=== PATIENT | female | born 1935 | race Caucasian/White ===

== ENCOUNTER 2016-12-24 17:42 | Inpatient (IN) | payer MEDICARE, OTHER ==
[2016-12-24] MEDS ORDERED: Nitroglycerin 2% Ointment 1 INCH/1 GM Packet ONE (18:28)
[2016-12-24 18:44] LABS: ALT (SGPT) 16 U/L (8-55); AST (SGOT) 20 U/L (5-34); Alkaline Phosphatase 63 U/L (40-150); Anion Gap 13 mmol/L (10-20); BUN (Urea Nitrogen) 41 mg/dL (9.8-20.1); Bilirubin, Total 0.3 mg/dL (0.2-1.2); CK (CPK) 32 U/L (29-168); Calc. Creatinine Clearance 0 mL/min (70-130); Calcium 11.1 mg/dL (7.8-10.44); Carbon Dioxide 25 mmol/L (23-31); Chloride 107 mmol/L (98-107); Estimated GFR-MDRD 39; Globulin 3.3 g/dL (2.4-3.5); Lipase 263 U/L (8-78); Protein, Total 7.4 g/dL (6.0-8.3)
[2016-12-24 18:54] LABS: Troponin I 0.013 ng/mL (< 0.028)
[2016-12-24 19:26] LABS: #Eosinphils 0.1 thou/uL (0.0-0.7); #Lymphocytes 0.8 thou/uL (1.20-3.40); #Monocytes 2.2 thou/uL (0.11-0.59); #Neutrophils 12.2 thou/uL (1.40-6.50); %Basophils 0.2 % (0.0-1.0); %Eosinophils 0.8 % (0.0-10.0); %Lymphocytes 5.1 % (21.0-51.0); %Monocytes 14.5 % (0.0-10.0); Hematocrit 37.7 % (36.0-47.0); Mean Platelet Volume 8.9 fL (7.4-10.4); Red Blood Cell (RBC) Count 3.81 mill/uL (4.20-5.40); White Blood Cell (WBC) Count 15.4 thou/uL (4.8-10.8)
--- NOTE | 2016-12-24 19:48 | RAD ---
RADIOGRAPH CHEST 1 VIEW: 12/24/16 HISTORY: 80-year-old female with acute mid sternal chest pain and vomiting. FINDINGS: There are no air space densities, pulmonary edema, pneumothorax, or cardiomegaly. The lateral costo phrenic angles are sharp. IMPRESSION: 1. No acute cardiopulmonary findings. 2. An extremely large number of cutaneous nodules throughout the chest and bilateral arms. Some of these nodules overlie the lung car, especially on the right, and therefore, it is difficult t o evaluate for pulmonary nodules. This presumably represents neurofibromatosis type I, but correlati on with history is recommended. bren hernandez POS: REED
--- NOTE | 2016-12-24 21:32 | ULT ---
ULTRASOUND ABDOMEN LIMITED: (RIGHT UPPER QUADRANT) Date: 12/24/16 Time: 8:36 p.m. HISTORY: 80-year-old female with right upper quadrant abdominal pain. FINDINGS: Gallbladder: There is an approximately 25 x 12 x 25 mm mobile calculus at the gallbladder fundus. Ga llbladder wall thickness is 3 mm, at the upper limits of normal, similar to the 12/01/10 ultrasound. No sonographic Salmeron's sign. No pericholecystic edema. Common duct: 4 mm, normal. Liver: Normal size and echogenicity. Pancreas: Poorly visualized. Right kidney: Slightly small size. No hydronephrosis. At least two tiny cortical cysts. IMPRESSION: Positive for cholelithiasis, without strong evidence for acute cholecystitis. NATHANAEL Jalloh POS: REED
[2016-12-24] MEDS ORDERED: Ondansetron HCl/PF 4 MG/2 ML Vial ONE (21:36)
[2016-12-24] MEDS ORDERED: Morphine Sulfate 2 MG/ML SYRINGE ONE (21:36)
[2016-12-24] MEDS ORDERED: Ondansetron ODT 4 MG TAB SL PRN (22:47)
[2016-12-24] MEDS ORDERED: Ondansetron HCl/PF 4 MG/2 ML Vial IVP PRN (22:47)
[2016-12-24 22:58] VITALS: BMI 17.4
[2016-12-24] MEDS ORDERED: Dextrose 5 %-0.45 % NaCl 1,000 ML IV SCH (23:00)
[2016-12-25] MEDS ORDERED: Ondansetron HCl/PF 4 MG/2 ML Vial IVP PRN (00:06)
[2016-12-25] MEDS ORDERED: Mag-Al 1200 mg/1200 mg/30 ML UDCUP PO PRN (00:06)
[2016-12-25] MEDS ORDERED: Ondansetron ODT 4 MG TAB PO PRN (00:06)
[2016-12-25] MEDS ORDERED: Calcium Carbonate 500 MG ChewTAB PO PRN (00:06)
[2016-12-25] MEDS: Dextrose 5 %-0.45 % NaCl 1,000 ML IV SCH ×4 (00:25→23:30)
--- NOTE | 2016-12-25 01:16 | HP ---
DATE OF ADMISSION: 12/24/2016 The patient was seen and examined on 12/24/2016 PRIMARY CARE PHYSICIAN: Patient does not see any primary care physician. She follows with Cardiolo gy, Dr. Mike Zavaleta for palpitations. CHIEF COMPLAINT: Abdominal discomfort with nausea and vomiting. CODE STATUS: FULL CODE. SURROGATE DECISION MAKER: The patient makes her own decisions with the help of her family. HISTORY OF PRESENT ILLNESS: The patient is a 81-year-old female with neurofibromatosis, presented t o the emergency room with sudden onset of epigastric discomfort associated with nausea and vomiting. The pain started after lunch. It was sudden onset epigastric in location, radiating to her neck a nd left arm. She had a large vomiting after that. She denies any diarrhea or constipation. The pa in was more or less constant. No hematemesis, melena, hematochezia, heartburn or weight loss report ed. She has a history of pancreatitis in the past per family report. In the emergency room, her initial vital signs showed temperature 97.4, respirations 20, pulse of 94 with blood pressure of 109/66 with O2 saturation 99% on room air. Initial EKG showed sinus rhythm with left ventricular hypertrophy. Troponins were normal. Lipase was 263 with normal LFTs. She wa s started on IV fluids. An abdominal ultrasound was performed that showed cholelithiasis without ev idence for acute cholecystitis. Common duct was 4 mm and appeared normal. A chest x-ray was negati ve for acute cardiopulmonary findings. PAST MEDICAL HISTORY: 1. Palpitations followed by Dr. Zavaleta. 2. Osteoporosis. 3. Neurofibromatosis 4. History of pancreatitis in the past. PAST SURGICAL HISTORY: 1. Tonsillectomy. 2. Biopsy for neurofibromatosis. ALLERGIES: Patient is allergic to ERYTHROMYCIN. CURRENT HOME MEDICATIONS: Toprol-XL 25 mg daily, multivitamin daily, Tylenol as needed, folic acid daily, Zofran as needed. SOCIAL HISTORY: Patient currently lives at home by herself. Brother lives close to her who makes m ost of her health care decision. No smoking, alcohol or drug use. FAMILY HISTORY: Mother of diabetes and congestive heart failure. Father with heart disease. REVIEW OF SYSTEMS: The following complete review of systems was negative, unless otherwise mentione d in the HPI or below. Constitutional: Weight loss or gain, ability to conduct usual activities. Skin: Rash, itching. Eyes: Double vision, pain. ENT/Mouth: Nose bleeding, neck stiffness, pain, tenderness. Cardiovascular: Palpitations, dyspnea on exertion, orthopnea. Respiratory: Shortness of breath, wheezing, cough, hemoptysis, fever or night sweats. Gastrointestinal: Poor appetite, abdominal pain, heartburn, nausea, vomiting, constipation, or diar ofelia. Genitourinary: Urgency, frequency, dysuria, nocturia. Musculoskeletal: Pain, swelling. Neurologic/Psychiatric: Anxiety, depression. Allergy/Immunologic: Skin rash, bleeding tendency. PHYSICAL EXAMINATION: VITAL SIGNS: As discussed above. GENERAL: A 81-year-old female in mild distress due to abdominal discomfort. HEENT: Head atraumatic, normocephalic. Sclerae anicteric. Moist mucous membranes. No oral lesion . NECK: Supple, no JVD appreciated. No carotid bruit. LUNGS: Clear to auscultation bilaterally. HEART: S1, S2 present. Regular rate and rhythm. ABDOMEN: Soft, epigastric tenderness. No significant rebound or guarding. No costovertebral angle tenderness. Bowel sounds are present. EXTREMITIES: No edema or calf tenderness. NEUROLOGIC: Grossly nonfocal, moves all four extremities. PSYCHIATRY: Alert, awake, oriented x3. SKIN: Multiple skin nodules from neurofibromatosis noted. LYMPH NODES: No palpable lymph nodes in the neck. PERIPHERAL VASCULAR: Radial pulses palpable bilaterally. MUSCULOSKELETAL: No joint swelling or tenderness. LABORATORY DATA AND X-RAY FINDINGS: CBC showed WBC of 15.4 with hemoglobin 12.3, hematocrit 37.7, p latelet of 241. Chemistries showed sodium 140, potassium 4.5, chloride 107, bicarbonate 25, BUN 41, creatinine 1.32. Creatinine in 2011 was 0.7. We do not have any labs since then. Lipase was 263. Troponins were normal. Calcium was 11.1. Chest x-ray by my review was negative for infiltrate or edema. Questionable pulmonary nodules; however, difficult to characterize due to multiple skin nod ules. Abdominal ultrasound as discussed above. EKG by my review as discussed above. IMPRESSION AND PLAN: 1. Acute pancreatitis, suspected due to gallstones. Rule out hypertriglyceridemia. 2. Neurofibromatosis. 3. History of palpitations followed by Dr. Zavaleta. Currently, stable on Toprol. 4. Acute kidney injury/dehydration. 5. Chronic kidney disease stage 2. 6. Leukocytosis with left shift, less likely to be infectious etiology. Rule out urinary tract inf ection. 7. Plan of care was discussed with the patient. She stated understanding. 8. The patient will require at least 2-3 days for stabilization. 9. Deep venous thrombosis prophylaxis with Lovenox. 10. Gastrointestinal prophylaxis. PLAN: The patient will be monitored on the medical floor. Gastroenterology will be consulted. The patient will be kept n.p.o. except for ice chips. IV hydration. We will repeat labs in a.m. Cont inue Toprol-XL. Fasting lipid profile in a.m.
[2016-12-25 01:49] LABS: Troponin I 0.024 ng/mL (< 0.028)
[2016-12-25 05:19] LABS: #Eosinphils 0.4 thou/uL (0.0-0.7); #Lymphocytes 1.2 thou/uL (1.20-3.40); #Monocytes 0.9 thou/uL (0.11-0.59); #Neutrophils 5.6 thou/uL (1.40-6.50); %Basophils 0.3 % (0.0-1.0); %Eosinophils 4.5 % (0.0-10.0); %Lymphocytes 14.4 % (21.0-51.0); %Monocytes 11.4 % (0.0-10.0); Mean Platelet Volume 8.7 fL (7.4-10.4); Red Blood Cell (RBC) Count 3.39 mill/uL (4.20-5.40); White Blood Cell (WBC) Count 8.1 thou/uL (4.8-10.8)
[2016-12-25 05:42] LABS: ALT (SGPT) 12 U/L (8-55); AST (SGOT) 14 U/L (5-34); Alkaline Phosphatase 50 U/L (40-150); Anion Gap 10 mmol/L (10-20); BUN (Urea Nitrogen) 42 mg/dL (9.8-20.1); Bilirubin, Total 0.4 mg/dL (0.2-1.2); Calc. Creatinine Clearance 29 mL/min (70-130); Calcium 9.7 mg/dL (7.8-10.44); Carbon Dioxide 24 mmol/L (23-31); Chloride 108 mmol/L (98-107); Cholesterol 147 mg/dl (< 200 Desired); Estimated GFR-MDRD 47; Globulin 2.5 g/dL (2.4-3.5); LDL Cholesterol, Calculated 87 mg/dL; Lipase 203 U/L (8-78); Magnesium 2.3 mg/dL (1.6-2.6); Protein, Total 5.8 g/dL (6.0-8.3)
[2016-12-25] MEDS ORDERED: FLU VACC TS2017-18 (>65YR) 0.5 ML SYRINGE IM ONE (09:00)
[2016-12-25] MEDS: Famotidine/PF 20 mg/2ml Vial SLOW IVP SCH (09:12)
--- NOTE | 2016-12-25 12:10 | CT ---
CT OF THE ABDOMEN AND PELVIS WITH CONTRAST: Date: 12/25/16 COMPARISON: None. HISTORY: Acute pancreatitis. TECHNIQUE: Multiple contiguous axial images were obtained in a CT of the abdomen and pelvis with contrast. PO c ontrast was administered. Coronal reformats were performed. FINDINGS: Calcified gallstones are seen in the gallbladder. There are calcifications in the liver and spleen f rom prior granulomatous disease. There are hypodensities in the bilateral kidneys measuring up to 3. 4 cm in size which likely represent cysts. The adrenal glands and pancreas are unremarkable. No stra nding changes are seen surrounding the pancreas to suggest acute pancreatitis. No biliary dilatation is seen. There is a mass-like structure in the pelvis which may represent a uterus containing fibroids. This measures 5.2 cm in greatest dimension. The large and small bowel are unremarkable. The appendix is u nremarkable. No abdominal or pelvic lymphadenopathy are seen. Atherosclerotic calcifications are see n in the aorta. There are multiple skin lesions seen on the abdominal wall which likely represent neurofibromas. The osseous structures and visualized inferior thorax are unremarkable. IMPRESSION: 1. Cholelithiasis. 2. Left renal cysts. 3. Sequelae from prior granulomatous disease in the liver and spleen. 4. No stranding changes seen surrounding the pancreas to suggest acute pancreatitis. 5. Mass-like structure in the pelvis may represent the patient's uterus. Correlate with history of prior gynecologic surgery or not. POS: REED
--- NOTE | 2016-12-25 13:53 | PDOC.PN ---
- Subjective Encounter Start Date: 12/25/16 Encounter Start Time: 11:15 Subjective: abdominal pain is resolved now -: no nausea or vomiting - Objective Resuscitation Status: Resuscitation Status FULL:Full Resuscitation MAR Reviewed: Yes Vital Signs & Weight: Vital Signs (12 hours) Temp Pulse Resp BP Pulse Ox 12/25/16 11:38 97.2 F L 70 20 101/59 L 98 12/25/16 08:00 97.3 F L 78 20 12/25/16 07:34 97.3 F L 78 20 104/60 98 12/25/16 04:00 97.6 F 74 20 97/57 L 95 Weight Weight 98 lb 9.6 oz Result Diagrams: 12/25/16 05:00 12/25/16 05:00 Phys Exam - Physical Examination multiple neurofibromas all over her body HEENT: PERRLA, moist MMs Neck: no JVD, supple Respiratory: no wheezing, no rales Cardiovascular: RRR, no significant murmur Gastrointestinal: soft, non-tender, positive bowel sounds Musculoskeletal: no edema, pulses present Neurological: non-focal, moves all 4 limbs Psychiatric: A&O x 3 Dx/Plan (1) Acute pancreatitis Code(s): K85.90 - ACUTE PANCREATITIS WITHOUT NECROSIS OR INFECTION, UNSP Status: Acute Qualifiers: Pancreatitis type: unspecified pancreatitis type (2) Chronic anemia Code(s): D64.9 - ANEMIA, UNSPECIFIED Status: Chronic (3) GIGI (acute kidney injury) Code(s): N17.9 - ACUTE KIDNEY FAILURE, UNSPECIFIED Status: Acute (4) Cholelithiasis Code(s): K80.20 - CALCULUS OF GALLBLADDER W/O CHOLECYSTITIS W/O OBSTRUCTION Status: Chronic Qualifiers: Cholelithiasis location: gallbladder Cholecystitis presence: without cholecystitis Biliary obstruction: without biliary obstruction Qualified Code(s): K80.20 - Calculus of gallbladder without cholecystitis without obstruction (5) H/O neurofibromatosis Code(s): Q85.00 - NEUROFIBROMATOSIS, UNSPECIFIED Status: Chronic - Plan gentle iv hydration for mild gigi plus she recieved contrast for CT -: CT abd results noted, trig and lft's are normal, cbd is 4 mm on usg -: GI opinion -: d/w Dr.Ohaju lewis, reviewed her CT, no need for cholecystectomy -: lipase trending down to 203 from 263 * . Review of Systems - Medications/Allergies Allergies/Adverse Reactions: Allergies Allergy/AdvReac Type Severity Reaction Status Date / Time erythromycin base Allergy Unknown Verified 02/02/13 19:27 [Erythromycin Base] erythromycin lactobionate Allergy Unknown Verified 02/02/13 19:27 [From Erythrocin] Medications: Current Medications Acetaminophen (Tylenol) 650 mg PO Q4H PRN PRN Reason: Headache/Fever or Pain Al Hydroxide/Mg Hydroxide (Maalox) 30 ml PO Q6H PRN PRN Reason: Heartburn or Indigestion Calcium Carbonate (Tums) 1,000 mg PO Q4H PRN PRN Reason: Heartburn or Indigestion Enoxaparin Sodium (Lovenox) 30 mg SC 2100 [facility] Famotidine (Pepcid) 20 mg SLOW IVP DAILY [facility] Last Admin: 12/25/16 09:12 Dose: 20 mg Dextrose/Sodium Chloride (D5 1/2 Ns) 1,000 mls @ 125 mls/hr IV .Q8H [facility] Last Admin: 12/25/16 09:14 Dose: Not Given Metoprolol Succinate (Toprol Xl) 25 mg PO DAILY [facility] Last Admin: 12/25/16 09:12 Dose: 25 mg Ondansetron HCl (Zofran Odt) 4 mg PO Q6H PRN PRN Reason: Nausea/Vomiting Ondansetron HCl (Zofran) 4 mg IVP Q6H PRN PRN Reason: Nausea/Vomiting
[2016-12-25 14:49] LABS: Bilirubin Negative (Negative); Blood, Urine Negative (Negative); Glucose, Urine (Dipstick) Negative (Negative); Ketone, Urine Negative (Negative); Nitrite Negative (Negative); Protein, Urine (Dipstick) Negative (Neg-Trace); Urobilinogen 0.2 mg/dL (0.2-1.0)
[2016-12-25 14:51] LABS: Bacteria/HPF None Seen HPF (None Seen); Hyaline Casts/LPF 0-3 HYALINE CAST LPF (0-3 Hyaline); RBC/HPF 0-3 HPF (0-3); Squamous Epithelial None Seen HPF (0-3); WBC/HPF None Seen HPF (0-3)
[2016-12-25] MEDS ORDERED: ISOVUE-370 76%-LOCM 1 ML ONE (16:09)
[2016-12-25] MEDS: Acetaminophen 325 MG TAB PO PRN (20:35)
[2016-12-25] MEDS: Enoxaparin Sodium 30 MG/0.3 ML SYRINGE SC SCH (20:35)
--- NOTE | 2016-12-25 21:06 | CON ---
DATE OF CONSULTATION: 12/25/2016 REASON FOR CONSULTATION: \\\\"Pancreatitis.\\\\" HISTORY OF PRESENT ILLNESS: Ms. Farris is a 81-year-old female with neurofibromatosis. She presented to the emergency room last night at about 11:00 with abdominal pain and chest pain. Apparently this started around 5 o'clock. The ER note reports this started in the neck and chest and moved to the left arm. There were some nausea, vomiting, diaphoresis, and some cough. Apparently, she also had some complaints of in her back. She has stable vital signs in the emergency room. Abdomen wa s reported as nontender. She had imaging of the abdomen with ultrasound that showed gallstones, no previous abdominal imaging is available for comparison. There are no signs of acute cholecystitis. She also had labs notable for a white count of 15,000, hemoglobin of 12.3 and a platelet count of 2 41. Her BUN and creatinine were 41 and 1.32. Electrolytes were normal and her lipase was mildly el evated at 263, mostly just about 3 times and upper limits normal. LFTs are completely normal. She was admitted to the hospital with a diagnosis of pancreatitis. Right now, the patient states she sparks s no abdominal pain. She states her pain is in the mid abdomen around the umbilicus. She denies an y similar episodes in the past, but from time to time she has had stomach problems, but does not rec all the last time it ever happened. At this time, it apparently happened after eating, but she nicholas ot ascertain exactly when she ate at [employer] compared to when the pain began last night. She has not been having similar bouts with this over and over the past several weeks or months. PAST MEDICAL HISTORY: Notable for neurofibromatosis and hypertension. Medical history is notable f rom the patient's family as per the HPI, the patient has had pancreatitis in the past but there are no records of that here. There was one elevated lipase of 713 from 11/2010, however, reviewing the records from that admission, it was felt that more likely had gastroenteritis at [facility]. PAST SURGICAL HISTORY: Notable for tonsillectomy. MEDICATIONS AT HOME: Vitamin D, Zofran p.r.n., multivitamin, thiamine, folate, metoprolol p.r.n. MEDICATIONS HERE: Tylenol, Maalox, Tums, normal saline at 125 an hour, Lovenox, Pepcid, Toprol p.r. n., and Zofran, p.r.n. PHYSICAL EXAMINATION: GENERAL: The patient is resting comfortably in bed. She has diffuse neurofibromas all over the ski n. She is in no distress. VITAL SIGNS: Temperature 97, pulse 70, blood pressure 100/59 . LUNGS: Clear. HEART: Regular without clicks or murmurs. ABDOMEN: Soft, nontender, without any palpable hepatosplenomegaly. Abdomen is without bruises. EXTREMITIES: No clubbing, cyanosis or edema. LABORATORY AND X-RAY FINDINGS: Labs today, white count is 8.1, hemoglobin 10.8 after hydration, hem oglobin . Chemistry profile is normal. Lipase is 203. Liver function tests normal. Lipids normal. CT scan of abdomen and pelvis was performed today and shows no signs of acute pancreatitis or active inflammation from the pancreas. There are calcified stones in the gallbladder. ASSESSMENT: 1. Cholelithiasis. I cannot elicit any history to suggest biliary colic in the past, but looking a t her home medicines and she does have chronic Zofran. 2. Mildly elevated lipase. There are no signs of pancreatitis on her CAT scan. She was here in 31 01 once with elevated lipase that was attributed to nonspecific mild elevation and attributed to an episode of gastroenteritis. There was no evidence of elevated liver enzymes at that time. 3. Abdominal pain. I think this is probably related to acute gastroenteritis, biliary colic is a p ossibility. In terms of pancreatitis, people with sometimes can get pancreatitis in the pancreas or obstructing duct, although there are no signs of dilated duct on her CAT scan. RECOMMENDATIONS: We will put her on full liquids and she how she does. We will monitor labs. If s he gets recurrent bouts of pain, I think she will be warrented for cholecystectomy. If she improves rapidly, she can probably go home in the next 24-48 hours.
[2016-12-26] MEDS: Dextrose 5 %-0.45 % NaCl 1,000 ML IV SCH ×2 (05:18→07:38)
[2016-12-26] MEDS: Acetaminophen 325 MG TAB PO PRN ×2 (05:21→13:42)
[2016-12-26 06:03] LABS: #Eosinphils 0.1 thou/uL (0.0-0.7); #Lymphocytes 0.6 thou/uL (1.20-3.40); #Neutrophils 9.1 thou/uL (1.40-6.50); %Basophils 0.2 % (0.0-1.0); %Eosinophils 1.4 % (0.0-10.0); %Lymphocytes 5.4 % (21.0-51.0); Hematocrit 36.5 % (36.0-47.0); Mean Platelet Volume 8.7 fL (7.4-10.4); Red Blood Cell (RBC) Count 3.74 mill/uL (4.20-5.40); White Blood Cell (WBC) Count 10.8 thou/uL (4.8-10.8)
[2016-12-26 06:26] LABS: ALT (SGPT) 14 U/L (8-55); AST (SGOT) 17 U/L (5-34); Alkaline Phosphatase 55 U/L (40-150); Anion Gap 10 mmol/L (10-20); BUN (Urea Nitrogen) 26 mg/dL (9.8-20.1); Bilirubin, Total 0.5 mg/dL (0.2-1.2); Calc. Creatinine Clearance 32 mL/min (70-130); Calcium 9.9 mg/dL (7.8-10.44); Carbon Dioxide 21 mmol/L (23-31); Chloride 108 mmol/L (98-107); Estimated GFR-MDRD 53; Globulin 2.8 g/dL (2.4-3.5); Lipase 14 U/L (8-78); Phosphorus 2.4 mg/dL (2.3-4.7); Protein, Total 6.2 g/dL (6.0-8.3)
[2016-12-26] MEDS: Famotidine/PF 20 mg/2ml Vial SLOW IVP SCH (07:38)
--- NOTE | 2016-12-26 11:53 | PDOC.PN ---
- Subjective Encounter Start Date: 12/26/16 Encounter Start Time: 07:40 Subjective: no abd pain, is tolerating liq diet -: no nausea - Objective Resuscitation Status: Resuscitation Status FULL:Full Resuscitation MAR Reviewed: Yes Vital Signs & Weight: Vital Signs (12 hours) Temp Pulse Resp BP Pulse Ox 12/26/16 08:00 97.7 F 83 16 12/26/16 07:55 97.7 F 83 16 103/56 L 95 12/26/16 04:00 99.2 F 94 20 127/74 99 12/26/16 00:30 97.7 F 71 20 96/58 L 97 Weight Admit Weight 98 lb 9.6 oz Weight 98 lb 9.6 oz I&O: 12/25/16 12/26/16 12/27/16 06:59 06:59 06:59 Intake Total 1775 Balance 1775 Result Diagrams: 12/26/16 05:29 12/26/16 05:29 Phys Exam - Physical Examination numerous neurofibromas all over HEENT: PERRLA, moist MMs Neck: no JVD, supple Respiratory: no wheezing, no rales Cardiovascular: RRR, no significant murmur Gastrointestinal: soft, non-tender, no distention, positive bowel sounds Musculoskeletal: no edema, pulses present Neurological: non-focal, moves all 4 limbs Psychiatric: A&O x 3 Dx/Plan (1) Acute pancreatitis Code(s): K85.90 - ACUTE PANCREATITIS WITHOUT NECROSIS OR INFECTION, UNSP Status: Ruled-out Qualifiers: Pancreatitis type: unspecified pancreatitis type (2) Chronic anemia Code(s): D64.9 - ANEMIA, UNSPECIFIED Status: Chronic (3) GIGI (acute kidney injury) Code(s): N17.9 - ACUTE KIDNEY FAILURE, UNSPECIFIED Status: Resolved (4) Cholelithiasis Code(s): K80.20 - CALCULUS OF GALLBLADDER W/O CHOLECYSTITIS W/O OBSTRUCTION Status: Chronic Qualifiers: Cholelithiasis location: gallbladder Cholecystitis presence: without cholecystitis Biliary obstruction: without biliary obstruction Qualified Code(s): K80.20 - Calculus of gallbladder without cholecystitis without obstruction (5) H/O neurofibromatosis Code(s): Q85.00 - NEUROFIBROMATOSIS, UNSPECIFIED Status: Chronic - Plan d/w , may dc home if she tolerates solid diet for lunch -: will need outpt lap Dr.Derbes demar office will set this up -: hemostable * .
[2016-12-26] MEDS ORDERED: Meperidine HCl/PF 25 MG/ML VIAL SLOW IVP PRN (16:26)
--- NOTE | 2016-12-26 16:50 | PRG ---
DATE OF SERVICE: 12/26/2016 SUBJECTIVE: Ms. Farris tolerated liquid diet this morning and some cereal. She wants to go home. She did have a little bit of epigastric pain. Hospitalist plans on giving her regular lunch and see ho w she does with that, and if she does not have pain, letting her go home. PHYSICAL EXAMINATION: VITAL SIGNS: Temperature is 97, pulse 77, blood pressure 104/60. LUNGS: Clear. HEART: Regular rate and rhythm without clicks or murmurs. ABDOMEN: Nontender. LABORATORY DATA: White count 10.8, hemoglobin 11.6, platelet count 200. Chemistry: Sodium 135, po tassium 4.2, BUN and creatinine are 26 and 1.0. Liver function test is normal, lipase normal. ASSESSMENT: 1. Severe nausea, vomiting, admitted with dehydration, mild lipase. CAT scan showed no overt evide nce of pancreatitis. She did have large gallstones in the gallbladder. She is very hard of hearing and is difficult getting a good history from her, but it seems that she has had some intermittent a bdominal pains in the past, but nothing recently. General Surgery saw the patient and deferred on c holecystectomy at this time. 2. Neurofibromatosis. RECOMMENDATIONS: 1. If patient tolerates diet, I agree she can go home with PPI and we concede her as having had a g astroenteritis. If her symptoms worsen, she can have an outpatient cholecystectomy for symptomatic cholelithiasis. If she has worsening pain with eating regular food here, she probably should stay a nd be reevaluated by General Surgery for cholecystectomy for biliary colic. 2. Again, there are no overt signs of pancreatitis on CAT scan with mildly elevated lipase related to her excessive vomiting and possibly gastroenteritis.
[2016-12-26] MEDS ORDERED: Acetaminophen 500 MG TAB PO PRN (17:33)
[2016-12-26] MEDS: Enoxaparin Sodium 30 MG/0.3 ML SYRINGE SC SCH (20:48)
--- NOTE | 2016-12-26 20:53 | DIS ---
DATE OF ADMISSION: 12/24/2016 DATE OF DISCHARGE: 12/26/2016 DISCHARGE DISPOSITION: To home. PRIMARY DISCHARGE DIAGNOSIS: Initial suspected acute pancreatitis, resolved. SECONDARY DISCHARGE DIAGNOSES: Chronic anemia; acute kidney injury due to dehydration, resolved; ch olelithiasis; extensive neurofibromatosis, which is chronic. PROCEDURES DONE DURING HOSPITALIZATION: Ultrasound of right upper quadrant done showed cholelithias is without signs of acute cholecystitis. CBD was 4 mm. Had a 25 x 12 x 25 mm mobile calculus in th e gallbladder fundus. CT of the abdomen and pelvis done showed cholelithiasis no stranding changes seen surrounding pancreas to suggest acute pancreatitis. Had a white count of 15 with discharge num bers of 10. Initial BUN and creatinine were 41 and 1.3, discharge numbers of 26 and 1.0. Initial l ipase 263 with discharge numbers of 14. Liver function tests were within normal limits. Triglyceri marisela was 101, LDL of 87. DISCHARGE MEDICATIONS: Patient to continue all her home medications as before, Toprol-XL 25 mg p.o. daily and multivitamin 1 tab once daily. ALLERGIES: ERYTHROMYCIN. INPATIENT CONSULTS: Dr. Vizcaino for Gastroenterology. BRIEF COURSE DURING HOSPITALIZATION: The patient initially got admitted on the with complaints of nausea, vomiting, and abdominal pain. The abdominal pain was in the epigastric area. On arriva l, the patient had elevated lipase. Her right upper quadrant ultrasound showed a large calculus in the gallbladder with no signs of cholecystitis. Patient's liver function tests were within normal l imits. Her abdominal and pelvic CAT scan done showed no signs of acute pancreatitis. The patient w ill require outpatient laparoscopic cholecystectomy due to large stone in the gallbladder, which luis ht cause trouble in the future. She has had consultation with Dr. Vizcaino for Gastroenterology. She was gently hydrated during her stay here. Patient's abdominal pain has completely resolved from la st 24 hours and is tolerating solid food. She needs to follow up with Dr. Vizcaino in 4 weeks for pos sible outpatient referral for laparoscopic cholecystectomy. Please see a [id number] documentation on [facility] for the day of discharge.
--- NOTE | 2016-12-26 22:41 | CON ---
DATE OF CONSULTATION: 12/26/2016 REQUESTING PHYSICIAN: Teresa Lazo M.D. HISTORY OF PRESENT ILLNESS: This is a 81-year-old woman with a history of severe cutaneous neurofib romatosis. The patient reports a sudden onset postprandial epigastric abdominal pain which started 2 days ago after having lunch. She reports the pain at 5/10 in onset and associated with some nause a but no emesis. She denies any fevers or chills. The patient was evaluated upon admission. Naya p at that time included a gallbladder ultrasound which was remarkable for a 2 x 2 x 1 cm intralumina l gallstone with no gallbladder wall thickening or pericholecystic fluid. Common bile duct size was normal in diameter for the patient's age at 4 mm. The patient was managed conservatively with init ially bowel rest, followed by clear liquid diet. Abdominal pain has failed to resolve completely. CT scan of the abdomen and pelvis was obtained yesterday, which reveals intraluminal calcified galls tones. No evidence of any active inflammatory process within the abdominal or pelvic cavities. t was advanced today. The patient consumed some chicken fingers and macaroni and cheese following w hich she reported recurrent abdominal pain. She denies any nausea or vomiting. At the time of my e valuation, the pain is essentially absent; however, she had received intravenous analgesics. PAST MEDICAL HISTORY: Significant for neurofibromatosis, previous pancreatitis, and osteoporosis. PAST SURGICAL HISTORY: Pertinent for tonsillectomy and adenoidectomy. She has had biopsies of the neurofibromatosis and had some excision of some of the tumors from her feet. SOCIAL HISTORY: The patient lives independently. She denies any cigarette smoking, ethanol, or ill icit drug abuse. FAMILY HISTORY: Noncontributory for this patient's age. PREHOSPITAL MEDICATIONS: Include acetaminophen 325 mg p.o. q. 4 hours p.r.n., metoprolol 25 mg p.o. daily. She also takes multiple vitamins 1 p.o. daily. ALLERGIES: ERYTHROMYCIN. REVIEW OF SYSTEMS: A ten-point review of systems essentially unremarkable except for as stated in p ast medical history and chief complaint. PHYSICAL EXAMINATION: GENERAL: This reveals a 81-year-old thin-appearing woman who is coherent and interactive. She is h maría of hearing but appears to be in no acute distress at the time of my evaluation. VITAL SIGNS: Include blood pressure 104/60, pulse 77, respiration 16, temperature 97.3 degrees Fahr enheit, oxygen saturation 98% on room air. HEENT: Examination reveals normocephalic and atraumatic. Pupils are equally round and reactive to light and accommodation. HEART: Reveals regular rate and rhythm, no murmurs or gallops auscultated. LUNGS: Clear to auscultation bilaterally. Breathing is regular and unlabored. ABDOMEN: Soft and nondistended. She has epigastric tenderness to palpation. Liver and spleen are nonpalpable below costal margins. NEUROLOGIC: Examination reveals no focal deficits present. MUSCULOSKELETAL: Examination which reveals diffuse nodular lesions which span the entire skin from head to toe including the torso circumferentially consistent with severe cutaneous neurofibromatosis . PERTINENT LABORATORY FINDINGS: Today includes a CBC with 10,800 white blood cells, hemoglobin 11.7, hematocrit is 36.5, platelet count 200,000. Metabolic profile: Sodium 135, potassium is 4.2, chlo ride is 108, bicarbonate 21, BUN 26, creatinine is 1.0; this is improved over admission with a BUN a nd creatinine of 41 and 1.32, respectively. LFTs today include an unremarkable and stable AST, ALT, and alkaline phosphatase at 17, 14, and 55, respectively. Serum lipase which was elevated on admis jc at 263, is now normal at 14. I have reviewed the abdominal ultrasound which reveals 2 x 2 x 1 cm intraluminal gallstones with a c ommon bile duct which is normal in diameter at 4 mm for this patient's age. There is no pericholecy stic fluid or gallbladder wall thickening present. I have also reviewed the CT scan of the abdomen and pelvis again, which shows intraluminal calcified gallstones. No pneumoperitoneum or free fluid is noted. IMPRESSIONS: 1. Abdominal pain of undetermined etiology. 2. Cholelithiasis, no radiographic evidence of acute cholecystitis. 3. Neurofibromatosis. RECOMMENDATIONS: We will obtain HIDA scan to rule out cystic or common bile ductal obstruction whic h may make surgical intervention necessary. Should the HIDA scan suggests surgery, we will arrange for a family conference to discuss the potential risks and benefits of the planned surgery given thi s patient's significant comorbidities specifically the neurofibromatosis. Should surgery be contemp lated, I will request further preoperative evaluation to include cardiac evaluation and risk stratif ication. The above findings and recommendations have been discussed with the patient who indicates understanding of information given. I have answered her questions. Thank you again, Dr. Lazo for allowing me the opportunity to participate in the care of this patient.
[2016-12-27] MEDS: Dextrose 5 %-0.45 % NaCl 1,000 ML IV SCH ×2 (04:25→04:27)
[2016-12-27 07:49] VITALS: BP 121/63; TEMP 98.8
--- NOTE | 2016-12-27 12:02 | PDOC.PN ---
- Subjective Encounter Start Date: 12/27/16 Encounter Start Time: 08:40 -: old records requested/rev Patient seen and examined. No new complaints. No overnight events - Objective Resuscitation Status: Resuscitation Status FULL:Full Resuscitation MAR Reviewed: Yes Vital Signs & Weight: Vital Signs (12 hours) Temp Pulse Resp BP Pulse Ox 12/27/16 08:00 98.8 F 83 18 12/27/16 07:47 98.8 F 83 18 121/63 94 L 12/27/16 04:00 98.1 F 12/27/16 01:00 98.0 F 87 18 117/53 L 98 Weight Admit Weight 98 lb 9.6 oz Weight 98 lb 9.6 oz I&O: 12/26/16 12/27/16 12/28/16 06:59 06:59 06:59 Intake Total 1775 2520 Balance 1775 2520 Result Diagrams: 12/26/16 05:29 12/26/16 05:29 Phys Exam - Physical Examination Constitutional: NAD HEENT: PERRLA, moist MMs, sclera anicteric Neck: no JVD, supple Respiratory: no wheezing, no rales, no rhonchi Cardiovascular: RRR, no significant murmur, no rub Gastrointestinal: soft, non-tender, no distention, positive bowel sounds Musculoskeletal: no edema, pulses present Neurological: non-focal, normal sensation, moves all 4 limbs Lymphatic: no nodes Psychiatric: normal affect, A&O x 3 Skin: no rash, normal turgor Dx/Plan (1) Cholelithiasis Code(s): K80.20 - CALCULUS OF GALLBLADDER W/O CHOLECYSTITIS W/O OBSTRUCTION Status: Chronic Qualifiers: Cholelithiasis location: gallbladder Cholecystitis presence: without cholecystitis Biliary obstruction: without biliary obstruction Qualified Code(s): K80.20 - Calculus of gallbladder without cholecystitis without obstruction (2) Chronic anemia Code(s): D64.9 - ANEMIA, UNSPECIFIED Status: Chronic (3) H/O neurofibromatosis Code(s): Q85.00 - NEUROFIBROMATOSIS, UNSPECIFIED Status: Chronic (4) Protein-calorie malnutrition, moderate Code(s): E44.0 - MODERATE PROTEIN-CALORIE MALNUTRITION Status: Chronic (5) GIGI (acute kidney injury) Code(s): N17.9 - ACUTE KIDNEY FAILURE, UNSPECIFIED Status: Resolved (6) Acute pancreatitis Code(s): K85.90 - ACUTE PANCREATITIS WITHOUT NECROSIS OR INFECTION, UNSP Status: Ruled-out Qualifiers: Pancreatitis type: unspecified pancreatitis type - Plan cont current plan of care * HIDA scan is normal uptake in liver and gall bladder, no obstruction on bile duct, no cholecystitis * medication reviewed as below * symptomatic treatment. * will discharge to home today * see discharge freddy Review of Systems - Review of Systems ENT: negative: Ear Pain, Ear Discharge, Nose Pain, Nose Discharge, Nose Congestion, Mouth Pain, Mouth Swelling, Throat Pain, Throat Swelling, Other Respiratory: negative: Cough, Dry, Shortness of Breath, Hemoptysis, SOB with Excertion, Pleuritic Pain, Sputum, Wheezing Cardiovascular: negative: Chest Pain, Palpitations, Orthopnea, Paroxysmal Noc. Dyspnea, Edema, Light Headedness, Other Gastrointestinal: negative: Nausea, Vomiting, Abdominal Pain, Diarrhea, Constipation, Melena, Hematochezia, Other Genitourinary: negative: Dysuria, Frequency, Incontinence, Hematuria, Retention , Other Musculoskeletal: negative: Neck Pain, Shoulder Pain, Arm Pain, Back Pain, Hand Pain, Leg Pain, Foot Pain, Other Skin: negative: Rash, Lesions, Moiz, Bruising, Other - Medications/Allergies Allergies/Adverse Reactions: Allergies Allergy/AdvReac Type Severity Reaction Status Date / Time erythromycin base Allergy Unknown Verified 02/02/13 19:27 [Erythromycin Base] erythromycin lactobionate Allergy Unknown Verified 02/02/13 19:27 [From Erythrocin] Medications: Current Medications Acetaminophen (Tylenol) 1,000 mg PO Q6H PRN PRN Reason: Headache/Fever or Pain Al Hydroxide/Mg Hydroxide (Maalox) 30 ml PO Q6H PRN PRN Reason: Heartburn or Indigestion Calcium Carbonate (Tums) 1,000 mg PO Q4H PRN PRN Reason: Heartburn or Indigestion Enoxaparin Sodium (Lovenox) 30 mg SC 2100 [facility] Last Admin: 12/26/16 20:48 Dose: Not Given Dextrose/Sodium Chloride (D5 1/2 Ns) 1,000 mls @ 50 mls/hr IV .Q20H [facility] Last Admin: 12/27/16 04:27 Dose: 1,000 mls Metoprolol Succinate (Toprol Xl) 25 mg PO DAILY [facility] Last Admin: 12/27/16 08:42 Dose: 25 mg Ondansetron HCl (Zofran Odt) 4 mg PO Q6H PRN PRN Reason: Nausea/Vomiting Ondansetron HCl (Zofran) 4 mg IVP Q6H PRN PRN Reason: Nausea/Vomiting Pantoprazole Sodium (Protonix) 40 mg PO DAILY [facility] Last Admin: 12/27/16 08:42 Dose: 40 mg
--- NOTE | 2016-12-27 12:31 | PRG ---
DATE OF SERVICE: 12/27/2016 Ms. Farris after eating lunch yesterday had a recurrence of pain that brought her to the hospital. She again became n.p.o. VITAL SIGNS: Vital signs are stable, afebrile. ABDOMEN: Abdomen is nontender. ASSESSMENT: 1. Neurofibromatosis. 2. Symptomatic cholelithiasis. RECOMMENDATIONS: Laparoscopic cholecystectomy.
--- NOTE | 2016-12-27 13:44 | ADD-DIS ---
ADDENDUM Please see discharge summary dictated by Dr. Lazo yesterday for further details. This patien t's discharge was kept on hold because after discharge, Dr. Grimaldo saw this patient and he recommende d HIDA scan. HIDA scan was done today and that came back negative for any obstruction, negative for any cholecystitis, overall HIDA scan appears normal. After that, we discussed with Dr. Grimaldo and Krista Vizcaino both cleared her for discharge again today. PHYSICAL EXAMINATION: The patient is seen and examined at bedside today. Please see my progress no te from for further details. The patient is medically stable for discharge today. She is toleratin g her diet very well.
--- NOTE | 2016-12-27 16:33 | NM ---
NUCLEAR MEDICINE HEPATOBILIARY SCAN: History: 81-year-old female with cholelithiasis and acute pancreatitis. The ordering physician specifically r equested determination of whether there is obstruction of the common bile duct or cystic duct. Technique: 5.5 mCi Technetium 99m Mebrofenin was injected IV. Anterior dynamic scintigraphy of the abdomen was performed for a total of 1 hour. No CCK analog or fatty meal was administered. FINDINGS: There is normal uptake and washout of activity from the liver. The gallbladder begins to fill by elza roximately 10 minutes and eventually fills normally. No bowel activity is visualized on the standard images because the uptake in the gallbladder is so intense. Therefore, the windowing was subsequent ly changed on the images, revealing faint activity in jejunal loops in left upper quadrant of the ab domen. DISCUSSION: The fact that the gallbladder fills readily, and the lack of significant biliary ductal dilation on the recent CT and recent ultrasound, indicate that there is no obstruction of the cystic duct, commo n hepatic duct, or the common bile duct. IMPRESSION: Negative for acute cholecystitis, and negative for biliary obstruction. POS: [facility]
== END 2016-12-27 14:14 | disposition home or self-care (01) | DRG 439 ==
LOC: ERS 17:42 → T4-B 21:26
PROVIDERS: ADMIT Internal Medicine; ATTEND Internal Medicine
DX: K85.90 Acute pancreatitis without necrosis or infection, unspecified (principal); N17.9 Acute kidney failure, unspecified; E44.0 Moderate protein-calorie malnutrition; E86.0 Dehydration; D64.9 Anemia, unspecified; Q85.00 Neurofibromatosis, unspecified; Z68.1 Body mass index [BMI] 19.9 or less, adult; H91.90 Unspecified hearing loss, unspecified ear; K80.20 Calculus of gallbladder without cholecystitis without obstruction; M81.0 Age-related osteoporosis without current pathological fracture; N18.2 Chronic kidney disease, stage 2 (mild); R00.2 Palpitations
CPT/HCPCS: 36415; 71010; 74177; 76705; 78226; 80053; 80061; 81001; 82150; 82550; 82553; 83605; 83690; 83735; 84100; 84484; 85025; 93005; 96361; 96374; 96375; A9537; J1650; J2175; J2270; J2405; S0028

== ENCOUNTER 2017-02-11 13:53 | Outpatient (CLI) | payer MEDICARE, OTHER ==
[2017-02-11 15:17] LABS: Hematocrit 37.9 % (36.0-47.0); Red Blood Cell (RBC) Count 3.84 mill/uL (4.20-5.40); White Blood Cell (WBC) Count 6.1 thou/uL (4.8-10.8)
[2017-02-11 15:29] LABS: ALT (SGPT) 12 U/L (8-55); AST (SGOT) 16 U/L (5-34); Alkaline Phosphatase 58 U/L (40-150); Anion Gap 11 mmol/L (10-20); BUN (Urea Nitrogen) 33 mg/dL (9.8-20.1); Bilirubin, Total 0.4 mg/dL (0.2-1.2); Calc. Creatinine Clearance 0 mL/min (70-130); Calcium 11.2 mg/dL (7.8-10.44); Carbon Dioxide 27 mmol/L (23-31); Chloride 106 mmol/L (98-107); Estimated GFR-MDRD 49; Globulin 2.6 g/dL (2.4-3.5); Protein, Total 6.6 g/dL (6.0-8.3)
[2017-02-11 15:36] LABS: Band 1 % (5-11); Neutrophil 60 % (42-75); Reactive Lymphocytes 3 % (0-10)
== END 2017-02-11 13:54 | disposition home or self-care (01) ==
LOC: LABBT 13:53
PROVIDERS: ATTEND Specialist
DX: Z01.818 Encounter for other preprocedural examination (principal); K80.20 Calculus of gallbladder without cholecystitis without obstruction; K85.90 Acute pancreatitis without necrosis or infection, unspecified; Q85.00 Neurofibromatosis, unspecified
CPT/HCPCS: 80053; 85025; 93005; 93010

== ENCOUNTER 2017-03-01 09:19 | Day surgery (SDC) | payer MEDICARE, OTHER ==
[2017-02-11 14:12] VITALS: BMI 16.9
[2017-03-01] MEDS ORDERED: CEFAZOLIN/Water 2 GM/20 ML SYRINGE ONE (09:52)
[2017-03-01] MEDS ORDERED: Ketorolac Tromethamine 30 MG/ML VIAL ONE (09:52)
[2017-03-01] MEDS ORDERED: Ondansetron HCl/PF 4 MG/2 ML Vial ONE (11:30)
[2017-03-01] MEDS ORDERED: Dexamethasone 20 MG/5 ML VIAL ONE (11:30)
[2017-03-01] MEDS ORDERED: ePHEDrine/0.9% NaCl/PF SYRINGE 50 mg/10 ml ONE (11:30)
[2017-03-01] MEDS ORDERED: Glycopyrrolate 0.2 MG/ML 5 ML SYRINGE ONE (11:30)
[2017-03-01] MEDS ORDERED: Lidocaine 1% PF 5 ML VIAL ONE (11:30)
[2017-03-01] MEDS ORDERED: PHENYLEPHRINE-NS 100 MCG/ML 10 ML SYRINGE ONE (11:30)
[2017-03-01] MEDS ORDERED: Propofol 200 MG/20 ML VIAL ONE (11:30)
[2017-03-01] MEDS ORDERED: Bupivacaine/Epinephrine 0.25% 30 ML VIAL ONE (12:00)
[2017-03-01] MEDS ORDERED: Fentanyl 250 MCG/5 ML VIAL ONE (12:07)
[2017-03-01] MEDS ORDERED: Fentanyl 100 MCG/2 ML VIAL ONE (14:11)
[2017-03-01] MEDS ORDERED: Non-Formulary Medication 1 EACH PO PRN (14:19)
[2017-03-01] MEDS ORDERED: Ondansetron HCl/PF 4 MG/2 ML Vial IVP PRN (14:19)
[2017-03-01] MEDS ORDERED: Promethazine HCl 25 MG/ML VIAL IM/IV PRN (14:19)
[2017-03-01] MEDS ORDERED: HYDROcodone/Acetaminophen 5/325 mg Tablet PO PRN ×2 (14:20)
--- NOTE | 2017-03-02 10:16 | OP ---
DATE OF PROCEDURE: 03/01/2017 PREOPERATIVE DIAGNOSIS: Symptomatic cholelithiasis. POSTOPERATIVE DIAGNOSIS: Symptomatic cholelithiasis. PROCEDURE PERFORMED: Laparoscopic cholecystectomy. SURGEON: Nathanael Jensen M.D. ANESTHESIA: General endotracheal. INDICATIONS: The patient is a 81-year-old white female with neurofibromatosis. She presents with sy mptoms referable to gallbladder and ultrasound proven cholelithiasis. She is taken to the operating room at this time for laparoscopic cholecystectomy. PROCEDURE IN DETAIL: Informed consent was obtained. The patient was taken to the operating room whe re general endotracheal anesthesia was obtained with the patient in the supine position. The abdomen was prepped with Betadine and draped in the usual sterile fashion. Quarter percent Marcaine with ep inephrine was infiltrated below the umbilicus and a 10 mm infraumbilical incision was created. A Lizabeth ess needle was passed through this incision into the peritoneal cavity. A pneumoperitoneum was estab lished using carbon dioxide up to a pressure of 15 mmHg. Local anesthetic was infiltrated and three additional 5 mm right upper quadrant incisions were created. Through the mid incision, a 5 mm port w as passed into the peritoneal cavity. The camera was passed through this port and under direct visio n, an 11 port is passed through the infraumbilical incision. The camera was replaced through this port, and under dir ect vision, two additional 5 mm ports were passed through the incisions already created. The gallbladder was grasped and retracted in a cephalad direction. Minimal adhesions were bluntly st ripped away from the apex of the gallbladder, and the apex was retracted laterally and inferiorly. C areful dissection was carried out to the apex of the gallbladder to identify the cystic duct and cyst ic artery. These were each carefully dissected circumferentially. The duct was of normal caliber. Both the duct and the artery were divided between clips leaving two on the side to remain within the abdomen. The gallbladder was then dissected out of the gallbladder fossa using electrocautery and re moved through the infraumbilical port site. The fascia was closed with 0 Vicryl suture and a GraNee needle. The right upper quadrant was inspected and irrigated. All irrigant was aspirated. All port s and instruments were removed under direct vision. Pneumoperitoneum was carefully evacuated. Addit ional local anesthetic was infiltrated into each port site. The skin edges were approximated with 4- 0 Monocryl subcuticular sutures, and Dermabond was placed externally. There were no complications. The patient tolerated the procedure well and was taken to the Recovery Room in stable condition. FINDINGS: Selection of the port sites on the patient's abdominal wall was challenging secondary to t he innumerable neurofibromas present. Attempts were made to avoid these neurofibromas and placement of the ports, however. Internally, her anatomy appeared to be essentially normal. There were a coup le of unusual looking protuberant nodules on her liver, which were not biopsied. The duct was small and noninflamed. Cholangiogram was not obtained. Blood loss was negligible. There were no complica tions.
== END 2017-03-01 16:05 | disposition home or self-care (01) ==
LOC: SDC 09:19
PROVIDERS: ATTEND Specialist
PROC: 0FT44ZZ Resection of Gallbladder, Percutaneous Endoscopic Approach (ICD-10-PCS; principal; 2017-03-01)
DX: K80.10 Calculus of gallbladder with chronic cholecystitis without obstruction (principal); Q85.00 Neurofibromatosis, unspecified; M81.0 Age-related osteoporosis without current pathological fracture; Z79.899 Other long term (current) drug therapy; Z88.1 Allergy status to other antibiotic agents; Z98.42 Cataract extraction status, left eye; Z98.41 Cataract extraction status, right eye; Z96.1 Presence of intraocular lens; Z90.89 Acquired absence of other organs; Z98.890 Other specified postprocedural states; Z87.19 Personal history of other diseases of the digestive system
CPT/HCPCS: 88304; 96374; J0131; J1100; J1885; J2001; J2405; J2704; J3010

== ENCOUNTER 2017-08-25 12:45 | Emergency (ER) | payer MEDICARE, OTHER ==
[2017-08-25 13:15] LABS: #Basophils 0.1 thou/uL (0.0-0.2); #Eosinphils 0.2 thou/uL (0.0-0.7); #Lymphocytes 1.5 thou/uL (1.20-3.40); #Monocytes 1.1 thou/uL (0.11-0.59); #Neutrophils 6.2 thou/uL (1.40-6.50); %Basophils 0.9 % (0.0-1.0); %Eosinophils 2.1 % (0.0-10.0); %Lymphocytes 16.8 % (21.0-51.0); %Monocytes 12.4 % (0.0-10.0); %Neutrophils 67.8 % (42.0-75.0); Hemoglobin 13.7 g/dL (12.0-16.0); Mean Corpuscular HGB CONC 33.6 g/dL (32.0-36.0); Mean Corpuscular Volume 95.1 fl (81.0-99.0); Platelet Count 289 thou/uL (130-400); RBC Distribution Width 11.4 % (11.5-14.5); Red Blood Cell (RBC) Count 4.29 mill/uL (4.20-5.40); White Blood Cell (WBC) Count 9.2 thou/uL (4.8-10.8)
[2017-08-25 13:20] LABS: Bilirubin Negative (Negative); Blood, Urine Negative (Negative); Clarity CLEAR (Clear); Glucose, Urine (Dipstick) Negative (Negative); Leukocyte Negative (Negative); Nitrite Negative (Negative); Protein, Urine (Dipstick) 30 mg/dL (Neg-Trace); Specific Gravity, Urine 1.027 (1.002-1.036); Urobilinogen 0.2 mg/dL (0.2-1.0)
[2017-08-25 13:25] LABS: Bacteria/HPF None Seen HPF (None Seen); Hyaline Casts/LPF 4-6 HYALINE CAST LPF (0-3 Hyaline); Pathc Cast-AUWi Flag 1.01 (0-2.49); Squamous Epithelial 0-3 HPF (0-3); WBC/HPF 0-3 HPF (0-3)
[2017-08-25 13:36] LABS: ALT (SGPT) 17 U/L (8-55); AST (SGOT) 20 U/L (5-34); Albumin 4.2 g/dL (3.4-4.8); Alkaline Phosphatase 67 U/L (40-150); Anion Gap 13 mmol/L (10-20); BUN (Urea Nitrogen) 39 mg/dL (9.8-20.1); Bilirubin, Total 0.4 mg/dL (0.2-1.2); CK (CPK) 15 U/L (29-168); Calc. Creatinine Clearance 0 mL/min (70-130); Calcium 11.4 mg/dL (7.8-10.44); Carbon Dioxide 25 mmol/L (23-31); Chloride 105 mmol/L (98-107); Estimated GFR-MDRD 46; Globulin 3.3 g/dL (2.4-3.5); Glucose 128 mg/dL (83-110); Potassium 4.8 mmol/L (3.5-5.1); Protein, Total 7.5 g/dL (6.0-8.3); Sodium 138 mmol/L (136-145)
[2017-08-25 13:41] LABS: Troponin I Less than 0.010 ng/mL (< 0.028)
--- NOTE | 2017-08-25 14:14 | RAD ---
2 VIEWS ABDOMEN AND UPRIGHT VIEW OF CHEST: Date: 08/15/17 HISTORY: Chest and abdominal pain. FINDINGS: Supine and upright views of the abdomen and upright view of the chest shows a nonspecific, nonobstruc lester bowel gas pattern. Air is seen throughout the colon. No free air or air fluid levels are seen on upright examination. The heart is normal in size without focal cardiac abnormality. There is no evidence of consolidation, mass, or pleural effusion. There are multiple nodules projecting over both the chest and abdomen which likely represents superfi cial subcutaneous nodules. IMPRESSION: 1. No evidence of obstruction. 2. No evidence of acute cardiopulmonary disease. POS: [facility]
--- NOTE | 2017-08-25 14:29 | RAD ---
3 VIEWS RIGHT FOOT: Date: 08/25/17 COMPARISON: None. HISTORY: Right foot pain after trauma. FINDINGS: Three views of the right foot show no evidence of acute fracture or dislocation. No degenerative candelario ges are seen. Mild diffuse soft tissue swelling is seen. IMPRESSION: No evidence of acute osseous abnormality. POS: [facility]
--- NOTE | 2017-08-25 14:33 | RAD ---
3 VIEWS LEFT FOOT: Date: 08/25/17 COMPARISON: None. HISTORY: Foot and leg pain with difficulty walking; trauma. FINDINGS: Three views of the left foot show no evidence of acute fracture or dislocation. No focal tissue swell ing is seen. There appear to be multiple nodules along the subcutaneous tissues of the foot. IMPRESSION: No evidence of acute osseous abnormality. POS: [facility]
[2017-08-25] MEDS ORDERED: Methocarbamol 500 MG TAB PO SCH (15:00)
[2017-08-25] MEDS ORDERED: Metoclopramide HCl 10 MG/2 ML VIAL ONE (15:26)
[2017-08-25] MEDS ORDERED: diphenhydrAMINE 50 MG/ML VIAL ONE (15:26)
--- NOTE | 2017-08-25 16:01 | CT ---
CT HEAD NONCONTRAST: 08/25/17 HISTORY: Headache. COMPARISON: 11/23/04. FINDINGS: There is no evidence of acute intracranial hemorrhage or infarct. Diffuse cortical atrophy and chroni c ischemic small vessel disease are apparent. No mass effect or shift of midline structures. Hyperden sity associated with the vermis of the cerebellum is similar to the previous exams. IMPRESSION: Chronic type findings are stable. No acute intracranial abnormalities are demonstrated on noncontrast CT head. POS: [facility]
== END 2017-08-25 16:27 | disposition home or self-care (01) ==
LOC: ERS 12:45
DX: Q85.00 Neurofibromatosis, unspecified (principal); G89.29 Other chronic pain; M25.512 Pain in left shoulder; Z79.899 Other long term (current) drug therapy
CPT/HCPCS: 70450; 74022; 80053; 81003; 81015; 82550; 82553; 84484; 85025; 87070; 87077; 87186; 87205; 93005; 96361; 96374; 96375; J1200; J2765

== ENCOUNTER 2017-09-16 23:17 | Emergency (ER) | payer MEDICARE, OTHER ==
[2017-09-17] MEDS ORDERED: Dexamethasone 10 MG/ML VIAL ONE (00:11)
[2017-09-17] MEDS ORDERED: cefTRIAXone\\ROCEPHIN 1 GM VIAL ONE ×2 (00:11→00:20)
[2017-09-17] MEDS ORDERED: Lidocaine 1% PF 5 ML VIAL ONE (00:12)
--- NOTE | 2017-09-17 08:19 | RAD ---
FRONTAL VIEW CHEST: COMPARISON: 01/11/17. INDICATION: Cough, URI. FINDINGS: Numerous densities of the cutaneous tissues are present overlying the imaged body wall and upper extr emities. There is enlargement of the cardiac silhouette. There is a focal area of opacity at the ri ght lower lung zone. No obvious effusion or discrete pneumothorax. IMPRESSION: Focal patchy opacity of the right lung base has developed since December 2016 exam, and given patient' s symptoms, this favors a pneumonia. Recommend short-term radiographic followup upon resolution of a cute symptoms to confirm resolution of radiographic finding. CODE T
== END 2017-09-17 01:04 | disposition home or self-care (01) ==
LOC: ERS 23:17
DX: J18.9 Pneumonia, unspecified organism (principal); Z79.899 Other long term (current) drug therapy
CPT/HCPCS: 71045; 96372; J0696; J1100; J2001

== ENCOUNTER 2017-09-19 14:08 | Emergency (ER) | payer MEDICARE, OTHER ==
[2017-09-19 15:20] LABS: Hemoglobin 12.8 g/dL (12.0-16.0); Mean Corpuscular HGB CONC 34.4 g/dL (32.0-36.0); Mean Corpuscular Hemoglobin 32.3 pg (27.0-31.0); Mean Corpuscular Volume 93.9 fL (78.0-98.0); Mean Platelet Volume 7.8 fL (7.4-10.4); Platelet Count 370 thou/uL (130-400); RBC Distribution Width 11.5 % (11.5-14.5); Red Blood Cell (RBC) Count 3.97 mill/uL (4.20-5.40); White Blood Cell (WBC) Count 15.4 thou/uL (4.8-10.8)
[2017-09-19 15:37] LABS: ALT (SGPT) 20 U/L (8-55); AST (SGOT) 23 U/L (5-34); Albumin 3.5 g/dL (3.4-4.8); Alkaline Phosphatase 113 U/L (40-150); Anion Gap 13 mmol/L (10-20); BUN (Urea Nitrogen) 46 mg/dL (9.8-20.1); Bilirubin, Total 0.5 mg/dL (0.2-1.2); CK (CPK) 87 U/L (29-168); Calc. Creatinine Clearance 0 mL/min (70-130); Calcium 11.5 mg/dL (7.8-10.44); Carbon Dioxide 22 mmol/L (23-31); Chloride 107 mmol/L (98-107); Estimated GFR-MDRD 40; Glucose 96 mg/dL (83-110); Potassium 4.4 mmol/L (3.5-5.1); Protein, Total 6.5 g/dL (6.0-8.3); Sodium 138 mmol/L (136-145)
[2017-09-19 15:50] LABS: Lymphocytes 8 % (21-51); MDiff Complete? YES; Monocytes 6 % (0-10); Neutrophil 86 % (42-75); PLT Morphology Comment Appears Adequate
== END 2017-09-19 18:00 | disposition home or self-care (01) ==
LOC: ERS 14:08
DX: E86.0 Dehydration (principal); Z79.899 Other long term (current) drug therapy
CPT/HCPCS: 36415; 80053; 82550; 85025; 96360

== ENCOUNTER 2018-02-06 08:08 | Outpatient (CLI) | payer MEDICARE, OTHER ==
--- NOTE | 2018-02-06 11:21 | ULT ---
ULTRSOUND ABDOMEN: HISTORY: Abdominal pain. FINDINGS: The patient is post cholecystectomy. The common duct measures 3 mm in diameter. The liver, spleen, pancreas, and visualized portions of the aorta and IVC are unremarkable. Calcified plaque is seen in the mid distal abdominal aorta without evidence of aneurysmal dilatation. No hydronephrosis is note d on either side. Bilateral cysts are present, the largest on the right measuring 1.3 cm and on the left measuring 3.4 cm. No free fluid is seen. IMPRESSION: 1. Status post cholecystectomy without evidence of biliary obstruction. 2. Bilateral renal cysts. POS: [facility]
--- NOTE | 2018-02-06 11:25 | ULT ---
TRANSABDOMINAL PELVIC ULTRASOUND: INDICATION: Pelvic pain. COMPARISON: None. TECHNIQUE: Serrano scale and color Doppler images were obtained of the pelvis via a transabdominal approach. FINDINGS: The uterus measured 3.4 x 2.4 x 1.5 cm. The endometrial stripe measured 3 mm. There is a heterogene ous mixed echogenicity mass seen within the anterior uterine body measuring 2.1 x 1.6 cm suspicious f or a small intramural fibroid. The adnexae were not well seen. No free fluid is identified. IMPRESSION: Small fibroid within uterus. POS: [facility]
== END 2018-02-06 08:09 | disposition home or self-care (01) ==
LOC: BICULT 08:08
PROVIDERS: ATTEND Internal Medicine Geriatric Medicine
DX: R10.30 Lower abdominal pain, unspecified (principal); D25.9 Leiomyoma of uterus, unspecified; N28.1 Cyst of kidney, acquired; Z90.49 Acquired absence of other specified parts of digestive tract
CPT/HCPCS: 36415; 76700; 76856; 80053; 80061; 85025

== ENCOUNTER 2020-01-28 11:21 | Emergency (ER) | payer MEDICARE, OTHER ==
[2020-01-28] MEDS ORDERED: Acetaminophen 500 MG TAB ONE (13:02)
== END 2020-01-28 14:34 | disposition home or self-care (01) ==
LOC: ERS 11:21
DX: M79.604 Pain in right leg (principal); M79.605 Pain in left leg; Z79.899 Other long term (current) drug therapy
CPT/HCPCS: 99283

== ENCOUNTER 2020-02-10 08:38 | Inpatient (IN) | payer MEDICARE, OTHER ==
[2020-02-10] MEDS ORDERED: Iopamidol-370 76% 500 ML 1 ML ONE (09:50)
[2020-02-10 10:27] LABS: Bacteria/HPF 4+ HPF (None Seen); Bilirubin Negative (Negative); Blood, Urine 3+ (Negative); Clarity Turbid (Clear); Glucose, Urine (Dipstick) Normal (Negative); Ketone, Urine Negative (Negative); Leukocyte 500 Leu/uL (Negative); Nitrite 2+ (Negative); Protein, Urine (Dipstick) 70 mg/dL (Neg-Trace); RBC/HPF Greater than 50 HPF (0-3); Specific Gravity, Urine 1.015 (1.002-1.036); Squamous Epithelial None Seen HPF (0-3); Urobilinogen Normal mg/dL (Less than 2); WBC/HPF Greater than 50 HPF (0-3); pH, Urine 6.5 (5.0-9.0)
--- NOTE | 2020-02-10 10:30 | RAD ---
PORTABLE CHEST 1 VIEW: Date: 02/10/2020 Time: 0940 hours HISTORY: Tachycardia, shortness of breath with exertion. Atrial fibrillation. Neurofibromatosis. Chest pain. COMPARISON: 01/31/2020. FINDINGS: The heart size is prominent, but stable. The aorta is tortuous. The lungs are expanded without lobar consolidation, pneumothoraces, or pleural effusions. Widespread skin nodules consistent with neurofib romatosis again seen. IMPRESSION: No acute process. POS: [facility]
[2020-02-10] MEDS ORDERED: Aspirin Chewable 81 MG TAB ONE (10:34)
[2020-02-10] MEDS ORDERED: cefTRIAXone\\ROCEPHIN 1 GM VIAL ONE (10:34)
[2020-02-10 10:45] LABS: #Basophils 0.1 thou/uL (0.0-0.2); #Eosinphils 0.1 thou/uL (0.0-0.7); #Lymphocytes 0.9 thou/uL (1.20-3.40); #Monocytes 1.3 thou/uL (0.11-0.59); #Neutrophils 10.6 thou/uL (1.40-6.50); %Basophils 0.5 % (0.0-1.0); %Eosinophils 0.6 % (0.0-10.0); %Monocytes 9.9 % (0.0-10.0); %Neutrophils 82.1 % (42.0-75.0); Hemoglobin 8.3 g/dL (12.0-16.0); Mean Corpuscular HGB CONC 33.5 g/dL (32.0-36.0); Mean Corpuscular Hemoglobin 33.7 pg (27.0-31.0); Mean Platelet Volume 8.5 fL (7.4-10.4); Platelet Count 274 thou/uL (130-400); RBC Distribution Width 11.5 % (11.5-14.5); Red Blood Cell (RBC) Count 2.45 mill/uL (4.20-5.40)
[2020-02-10 11:18] LABS: ALT (SGPT) 13 U/L (8-55); AST (SGOT) 19 U/L (5-34); Albumin 3.5 g/dL (3.4-4.8); Alkaline Phosphatase 45 U/L (40-110); Anion Gap 15 mmol/L (10-20); BUN (Urea Nitrogen) 36 mg/dL (9.8-20.1); Bilirubin, Total 0.3 mg/dL (0.2-1.2); Calc. Creatinine Clearance 0 mL/min (70-130); Calcium 9.4 mg/dL (7.8-10.44); Carbon Dioxide 20 mmol/L (23-31); Chloride 109 mmol/L (98-107); Globulin 2.3 g/dL (2.4-3.5); Glucose 95 mg/dL (83-110); Lipase 21 U/L (8-78); Potassium 3.8 mmol/L (3.5-5.1); Protein, Total 5.8 g/dL (6.0-8.3); Sodium 140 mmol/L (136-145)
[2020-02-10 11:38] LABS: CKMB 3.9 ng/mL (0-6.6)
[2020-02-10] MEDS ORDERED: Enoxaparin Sodium 40 MG/0.4 ML SYRINGE ONE (11:39)
--- NOTE | 2020-02-10 11:46 | CT ---
EXAM: CTA of the chest HISTORY: Left chest pain and elevated d-dimer COMPARISON: Chest x-ray 02/10/2020 TECHNIQUE: Multiple contiguous axial images were obtained a CTA of the chest with contrast per pulmon jeanna embolism protocol. 3-D oblique MIP reformats and direct coronal reformats were performed. FINDINGS: HEART: Normal in size without focal cardiac abnormality. PULMONARY ARTERIES: Normal in caliber without filling defects to suggest pulmonary emboli. MEDIASTINUM: No hilar or mediastinal lymphadenopathy. LUNGS: No focal infiltrates or suspicious masses. Scattered calcified granulomas. PLEURAL SPACE: Trace bilateral pleural effusions. No pneumothorax. CHEST WALL SOFT TISSUES: The thyroid is enlarged and contains numerous calcifications. There are innu merable skin lesions which may be secondary to neurofibromatosis. VISUALIZED OSSEOUS STRUCTURES: Degenerative changes in the spine. VISUALIZED SUBDIAPHRAGMATIC STRUCTURES: Multiple left renal cysts. Calcified granulomas are seen in t he liver and spleen. IMPRESSION: 1. No evidence of pulmonary thromboembolism 2. Trace bilateral pleural effusions. 3. Left renal cysts
[2020-02-10 11:55] LABS: Prothrombin Time 13.1 sec (12.0-14.7)
--- NOTE | 2020-02-10 12:14 | PDOC.HHP ---
Hospitalist HPI - History of Present Illness Chest pain History of Present Illness: Ms. Farris is an 84-year-old female with past medical history of neurofibromatosis, palpitations followed by Dr. Zavaleta, osteoporosis, pancreatitis, chronic kidney disease who presents to the emergency room for acute onset of chest pain. Patient reports that earlier this morning she developed chest pain when waking from sleep that radiated to her left arm. She also endorsed shortness of breath during this episode. She says the episode lasted about an hour or so and now her pain is much improved. She denies any changes with inspiration. She has no history of cardiac disease. She denies any changes in vision, dizziness, lightheadedness. She denies any numbness, weakness or paresthesias. She endorses mild lower abdominal pain and mild dysuria. In emergency room initial vital signs 135/67, 95, 16, 97.8, 100% on room air. Initial EKG showed normal sinus rhythm. Initial troponin 0 0.223. D-dimer elevated at 0.91. H/H 8.3/24.7. WBC 13.0. BUN/CR 36/0.95. Sodium 140, potassium 3.8. Glucose 95. Chest x-ray with no acute findings. CT PE protocol was performed which is negative for pulmonary embolism. UA was positive. Patient received 325 mg of aspirin, 1 L of normal saline, ceftriaxone and 40 mg of Lovenox. Hospitalist ROS - Review of Systems Constitutional: denies: fever, chills, sweats, weakness, malaise, other Eyes: denies: pain, vision change, conjunctivae inflammation, eyelid inflammation, redness, other ENT: denies: ear pain, ear discharge, nose pain, nose discharge, nose congestion, mouth pain, mouth swelling, throat pain, throat swelling, other Respiratory: reports: shortness of breath. denies: cough, dry, hemoptysis, SOB with excertion, pleuritic pain, sputum, wheezing, other Cardiovascular: reports: chest pain. denies: palpitations, orthopnea, paroxysmal noc. dyspnea, edema, light headedness, other Gastrointestinal: denies: nausea, vomiting, abdominal pain, diarrhea, constipation, melena, hematochezia, other Genitourinary: reports: dysuria. denies: frequency, incontinence, hematuria, retention, other Musculoskeletal: denies: neck pain, shoulder pain, arm pain, back pain, hand pain, leg pain, foot pain, other Skin: denies: rash, lesions, leon, bruising, other Neurological: denies: weakness, numbness, incoordination, change in speech, confusion, seizures, other - Medication Medications: Medications include Metoprolol 25 mg daily Fish oil Multivitamin Tylenol as needed Allergy to erythromycin Hospitalist History - Past Medical History Other Medical History: Past medical history includes Neurofibromatosis Palpitations follow-up with Dr. Parker daily metoprolol Osteoporosis Pancreatitis, remote Chronic kidney disease - Past Surgical History Other Surgical History: Past surgical history includes Cholecystectomy Cataract removal Thyroidectomy - Family History Other Family History: No significant family history - Social History Smoking Status: Never smoker Alcohol: reports: None Drugs: reports: none Living Situation: Alone Activity level: independent ambulation - Exam General Appearance: NAD, awake alert Eye: PERRL, anicteric sclera ENT: normocephalic atraumatic, no oropharyngeal lesions, moist mucosa Neck: supple, symmetric, no JVD, no thyromegaly, no lymphadenopathy, no carotid bruit Heart: RRR, no murmur, no gallops, no rubs, normal peripheral pulses Respiratory: CTAB, no wheezes, no rales, no ronchi, normal chest expansion, no tachypnea, normal percussion Gastrointestinal: soft, non-tender, non-distended, normal bowel sounds, no pa lpable masses, no hepatomegaly, no splenomegaly, no bruit Extremities: no cyanosis, no clubbing, no edema Skin - other findings: Innumerable neurofibromatosis lesions Neurological: cranial nerve grossly intact, normal sensation to touch, no weakness, no focal deficits, no new deficit Musculoskeletal: normal tone, normal strength, no muscle wasting Psychiatric: normal affect, normal behavior, A&O x 3 Hospitalist Results - Labs Result Diagrams: 02/10/20 10:31 02/10/20 10:31 Lab results: WBC 13.0 thou/uL (4.8-10.8) H 02/10/20 10:31 Hgb 8.3 g/dL (12.0-16.0) L 02/10/20 10:31 Hct 24.7 % (36.0-47.0) L 02/10/20 10:31 MCV 101.0 fL (78.0-98.0) H 02/10/20 10:31 Plt Count 274 thou/uL (130-400) 02/10/20 10:31 Neutrophils % 82.1 % (42.0-75.0) H 02/10/20 10:31 Sodium 140 mmol/L (136-145) 02/10/20 10:31 Potassium 3.8 mmol/L (3.5-5.1) 02/10/20 10:31 Chloride 109 mmol/L (98-107) H 02/10/20 10:31 Carbon Dioxide 20 mmol/L (23-31) L 02/10/20 10:31 BUN 36 mg/dL (9.8-20.1) H 02/10/20 10:31 Creatinine 0.95 mg/dL (0.6-1.1) 02/10/20 10:31 Glucose 95 mg/dL (83-110) 02/10/20 10:31 Calcium 9.4 mg/dL (7.8-10.44) 02/10/20 10:31 Total Bilirubin 0.3 mg/dL (0.2-1.2) 02/10/20 10:31 AST 19 U/L (5-34) 02/10/20 10:31 ALT 13 U/L (8-55) 02/10/20 10:31 Alkaline Phosphatase 45 U/L (40-110) 02/10/20 10:31 CK-MB (CK-2) 3.9 ng/mL (0-6.6) 02/10/20 10:31 Troponin I 0.223 ng/mL (< 0.028) H 02/10/20 10:31 Serum Total Protein 5.8 g/dL (6.0-8.3) L 02/10/20 10:31 Albumin 3.5 g/dL (3.4-4.8) 02/10/20 10:31 Lipase 21 U/L (8-78) 02/10/20 10:31 Urine Ketones Negative mg/dL (Negative) 02/10/20 10:02 Urine Blood 3+ (Negative) A 02/10/20 10:02 Urine Nitrite 2+ (Negative) A 02/10/20 10:02 Ur Leukocyte Esterase 500 Slime/uL (Negative) A 02/10/20 10:02 Urine RBC Greater than 50 HPF (0-3) A 02/10/20 10:02 Urine WBC Greater than 50 HPF (0-3) A 02/10/20 10:02 Ur Squamous Epith Cells None Seen HPF (0-3) 02/10/20 10:02 Urine Bacteria 4+ HPF (None Seen) A 02/10/20 10:02 Hospitalist H&P A/P - Plan Plan: Chest pain 84-year-old female with minimal past medical history presents with acute onset of left-sided chest pain associated with shortness of breath. EKG showed normal sinus rhythm. Initial troponin 0 0.223. D-dimer 0.91, CTA PE protocol negative for pulmonary embolism. Chest x-ray with no acute findings. H/H 8.3/24.7. Patient received 325 mg of aspirin, 40 mg of Lovenox and 1 L of normal saline in emergency room. Patient reports her chest pain has now completely resolved. Will admit for chest pain/ACS rule out. Will likely need stress-test if troponin remains low. Plan Telemetry monitoring ASA Lovenox Trend troponin -NPO pending stress test Cardiology consult Elevated troponin Patient presented with left-sided chest pain radiating to her left arm which lasted approximately an hour. Initial troponin elevated to 0.223. EKG normal sinus rhythm with nonspecific T wave changes. Suspect likely demand ischemia in setting of urinary tract infection, however will continue to trend troponin. Patient received 325 mg of aspirin in the emergency room as well as 40 mg of Lovenox. Will obtain echo, and consult cardiology. Plan Telemetry monitoring [facility] Echocardiogram Cardiology consult UTI Patient presented for chest pain, however also noted to have mild lower abdominal discomfort and mild dysuria. UA grossly positive. Patient received ceftriaxone in the emergency room. As well as 1 L of normal saline. We will continue ceftriaxone. White blood cell count 13.0. Patient afebrile with normal vital signs. Plan Continue ceftriaxone Follow fever curve, white blood cell count Anemia Patient anemic on admission H&H 8.3/24.7. Macrocytic. Patient denies melena, hematochezia, hematuria. Will check folate/b12 levels. Plan -Monitor H&H -Folate, Vitamin B12 level -Maintain Hg >8 given cardiac presentation History of palpitations Patient has a history of palpitations for which she follows with Dr. Zavaleta. Patient has no history of atrial fibrillation. Does take metoprolol 25 mg daily for symptom management. Plan Continue home metoprolol 25 mg daily Cardiology consult as above DVT prophylaxisLovenox Full code Case discussed with Dr. Lazo who is agreement with plan above.
[2020-02-10] MEDS ORDERED: Ondansetron ODT 4 MG TAB PO PRN (13:46)
[2020-02-10] MEDS ORDERED: Ondansetron PF 4 MG/2 ML Vial IVP PRN (13:46)
[2020-02-10 14:50] LABS: Troponin I 0.423 ng/mL (< 0.028)
[2020-02-10] MEDS: Nitroglycerin 2% Ointment 1 INCH/1 GM Packet TOP SCH ×2 (15:35→20:39)
[2020-02-10] MEDS ORDERED: FLU VACC QS2020-21(65YR UP)/PF 240 MCG/0.7 ML SYRINGE IM ONE (16:30)
[2020-02-10 17:16] LABS: Critical Call Chem Troponin I RESULT DECREASING; Troponin I 0.384 ng/mL (< 0.028)
[2020-02-10 17:34] LABS: SARS-CoV-2 MS2 Positive; SARS-CoV-2 N Gene Negative; SARS-CoV-2 S Gene Negative; SARS-CoV-2 by NAA Not Detected (NotDetected); SARS-CoV-2 orf1ab Negative
--- NOTE | 2020-02-10 17:54 | CON ---
DATE OF CONSULTATION: 02/10/2020 INDICATION FOR CONSULTATION: An 84-year-old female with chest pain and slightly abnormal cardiac enzymes with palpitations. HISTORY OF PRESENT ILLNESS: This is a very unfortunate 84-year-old female who has severe neurofibromatosis. Yesterday evening, she developed some chest pain and some left shoulder pain. She also said that she had some leg discomfort and some shortness of breath. She noticed her heart was beating very rapidly. She called her family, they brought her to the emergency room. By the time she arrived here, it appeared that she was in a sinus rhythm. There was no evidence of any arrhythmia or tachycardia. EKG was performed and showed a normal sinus rhythm with no acute changes. She did have decreased R-wave progression in V1 through V3, but no indication of myocardial infarction, however, cardiac enzymes were slightly elevated and were indeterminate with a troponin I of 0.22. This has not yet been repeated. She also was noted to have a urinary tract infection with 4+ bacteria. Apparently for the last week, she has been treated with antibiotics for urinary tract infection, but does not appear that it has been successful. She does still complain of some dysuria. Otherwise, at this time, she has no chest pain. She is breathing comfortably. She is somewhat a difficult historian, but otherwise had no other complaints recently. She does live alone, whom she has a brother and sister who live nearby. PAST MEDICAL HISTORY: Significant for neurofibromatosis, severe mitral valve regurgitation, osteoporosis, cholelithiasis, cataract surgery. She has had a colonoscopy, tonsillectomy. She had a parathyroidectomy. FAMILY HISTORY: Her mother had diabetes and heart failure and also some chronic kidney disease. SOCIAL HISTORY: There is no history of alcohol or tobacco abuse. ALLERGIES: SHE SAYS SHE IS ALLERGIC TO ERYTHROMYCIN. REVIEW OF SYSTEMS: Review of systems are unremarkable except what was noted in the history of present illness. PHYSICAL EXAMINATION: GENERAL: Reveals an elderly female, who is in no acute distress at this time. She is alert. She seems to be oriented. VITAL SIGNS: Show blood pressure 132/50, heart rate is 95 and shows a sinus rhythm, respiratory rate 16, O2 saturation 100%. She is afebrile. HEENT: Shows the head to be normocephalic and atraumatic. Carotid pulses are present without bruits. CHEST: Clear to auscultation without rales, rhonchi, or wheezing. CARDIOVASCULAR: Revealed a regular rate and rhythm at this time with a harsh systolic murmur at the apex which radiates over the entire precordium. ABDOMEN: Soft and nontender. Positive bowel sounds are present. EXTREMITIES: Show no clubbing, cyanosis, or edema. Pedal pulses are present. NEUROLOGIC: She appears to be relatively intact. She does have diffuse nodules associated with her neurofibromatosis of the entire body. DIAGNOSTIC STUDIES: EKG shows a sinus rhythm with decreased R-wave progression in V1 through V3. LABORATORY DATA: Shows a sodium of 140, potassium 3.8, BUN was 36, creatinine 0.95, blood sugar was 95. Her troponin I was 0.22 on admission and now a newer has been repeated at 0.42. Hemoglobin was 8.3 with hematocrit of 24.7, WBC of 13, platelet count 274,000. Urinalysis shows 4+ bacteria. IMPRESSION: 1. An 84-year-old female with slight elevation of cardiac enzymes, which may be due to an earlier rapid heart rate. This has not yet been diagnosed. She could have atrial fibrillation or tachycardia since she says she had a rapid heart rate earlier this morning while she was still at home, but there is no indication she has any arrhythmias at this time. We will continue to monitor and we will trend the cardiac enzymes. We will schedule her for stress testing tomorrow unless the enzymes continue to trend upwards. She has had no previous history in the past of coronary artery disease. She does have a normal ejection fraction by echocardiogram. She last was seen in the office in November of this year. Her last echocardiogram was performed in September of this year, which showed ejection fraction of 55% to 60% with moderate to severe mitral valve regurgitation. She does have some mild posterior mitral valve prolapse and she had [id number] tricuspid valve regurgitation. She did have a stress test actually in 2017, which showed no evidence of ischemia and ejection fraction of about 70%. 2. History of dyslipidemia. Her cholesterol HDL has been 47 with the LDL level of 113 in August of 2019. 3. Neurofibromatosis. She appears to be relatively stable with this. 4. Moderate to severe mitral valve regurgitation. She may eventually need to undergo a mitral valve clip if she develops signs of congestive heart failure. Her last echocardiogram showed moderate to severe mitral valve regurgitation, but no significant left atrial dilatation that I recall. MEDICATIONS: 1. Prior to admission included amoxicillin that she was taking for urinary tract infection and she was taking as needed before dental work. 2. She was on a stool softener, multivitamins, Tylenol, vitamin D3. 3. She was also taking oxybutynin, Claritin, and metoprolol succinate 25 mg once a day. At this time, we will continue to monitor the patient. We will be more than happy to continue to follow the patient with you. We will trend the enzymes and plan for stress test tomorrow morning. There were no acute ST-segment changes on the EKG to indicate ischemia. We will also monitor for arrhythmias. May need to increase the dose of the metoprolol as long as the blood pressure tolerates. At this time, I will place her back on metoprolol. I will increase up to at least 50 mg a day. Job ID: [id number]
[2020-02-10] MEDS: Acetaminophen 325 MG TAB PO PRN (20:40)
[2020-02-10] MEDS: Bisacodyl 5 MG TAB PO PRN (20:40)
[2020-02-10] MEDS ORDERED: Enoxaparin Sodium 40 MG/0.4 ML SYRINGE SC SCH (21:00)
[2020-02-10] MEDS ORDERED: cefTRIAXone\\ROCEPHIN 1 GM in Sodium Chloride 0.9% 100 ML IVPB SCH (21:00)
[2020-02-10] MEDS ORDERED: Oxybutynin 5 MG TAB PO SCH ×2 (21:00→23:00)
[2020-02-11] MEDS: Nitroglycerin 2% Ointment 1 INCH/1 GM Packet TOP SCH ×3 (01:01→20:58)
[2020-02-11] MEDS: Acetaminophen 325 MG TAB PO PRN ×2 (04:55→22:15)
[2020-02-11] MEDS ORDERED: Ondansetron PF 4 MG/2 ML Vial IVP PRN (06:27)
[2020-02-11 08:47] LABS: #Eosinphils 0.2 thou/uL (0.0-0.7); #Lymphocytes 1.4 thou/uL (1.20-3.40); #Monocytes 1.2 thou/uL (0.11-0.59); #Neutrophils 8.7 thou/uL (1.40-6.50); %Basophils 0.4 % (0.0-1.0); %Eosinophils 1.7 % (0.0-10.0); %Lymphocytes 11.8 % (21.0-51.0); %Monocytes 10.6 % (0.0-10.0); %Neutrophils 75.5 % (42.0-75.0); Hemoglobin 7.2 g/dL (12.0-16.0); Mean Corpuscular HGB CONC 32.4 g/dL (32.0-36.0); Mean Corpuscular Hemoglobin 33.1 pg (27.0-31.0); Mean Platelet Volume 8.7 fL (7.4-10.4); Platelet Count 232 thou/uL (130-400); RBC Distribution Width 11.7 % (11.5-14.5); Red Blood Cell (RBC) Count 2.17 mill/uL (4.20-5.40); White Blood Cell (WBC) Count 11.5 thou/uL (4.8-10.8)
[2020-02-11] MEDS ORDERED: Aspirin 325 mg Enteric Coated Tablet PO SCH (09:00)
[2020-02-11] MEDS ORDERED: Enoxaparin Sodium 40 MG/0.4 ML SYRINGE SC SCH (09:00)
[2020-02-11] MEDS: Multivitamin W/ Minerals 1 TAB PO SCH (09:09)
[2020-02-11] MEDS: Aspirin 81 mg Enteric Coated Tablet PO SCH (09:10)
[2020-02-11] MEDS: Stress 600 With Zinc 1 TAB PO SCH (09:10)
[2020-02-11 09:15] LABS: Anion Gap 13 mmol/L (10-20); BUN (Urea Nitrogen) 42 mg/dL (9.8-20.1); Calc. Creatinine Clearance 27 mL/min (70-130); Carbon Dioxide 19 mmol/L (23-31); Chloride 113 mmol/L (98-107); Glucose 86 mg/dL (83-110); Sodium 141 mmol/L (136-145)
[2020-02-11] MEDS ORDERED: cefTRIAXone\\ROCEPHIN 1 GM in Sodium Chloride 0.9% 100 ML IVPB SCH (14:00)
[2020-02-11] MEDS ORDERED: FLU VACC QS2020-21(65YR UP)/PF 240 MCG/0.7 ML SYRINGE IM ONE (14:45)
--- NOTE | 2020-02-11 15:53 | PDOC.HOSPP ---
- Subjective Encounter Date: 02/11/20 Encounter Time: 08:00 Subjective: Patient was seen for follow-up regarding chest pain. She denies any chest pain at this time. She denies any nausea or vomiting. She reports occasional dysuria. She denies any fevers or chills. - Objective Vital Signs & Weight: Vital Signs (12 hours) Temp Pulse Resp BP Pulse Ox 02/11/20 11:24 80 16 120/56 L 99 02/11/20 08:15 97 02/11/20 07:45 98.0 F 93 17 117/56 L 97 02/11/20 04:00 97.7 F 96 17 141/63 H 100 Weight Weight 96 lb 5.76 oz I&O: 02/10/20 02/11/20 02/12/20 06:59 06:59 06:59 Intake Total 460 Output Total 900 Balance -440 Result Diagrams: 02/11/20 08:34 02/11/20 08:34 Additional Labs: Labs and MAR reviewed by me EKG Reviewed by me: Yes (Telemetry shows normal sinus rhythm) Hospitalist ROS - Review of Systems Cardiovascular: denies: chest pain, palpitations, orthopnea, paroxysmal noc. dyspnea, edema, light headedness Gastrointestinal: denies: nausea, vomiting, abdominal pain, diarrhea, constipation, melena, hematochezia - Medication Medications: Active Medications Generic Name Dose Route Start Last Admin Trade Name Freq PRN Reason Stop Dose Admin Acetaminophen 650 mg 02/10/20 12:26 02/11/20 04:55 Acetaminophen 325 Mg Tab PO 650 mg Q4H PRN Administration Headache/Fever/Mild Pain (1-3) Aspirin 81 mg 02/11/20 09:00 02/11/20 09:10 Aspirin 81 Mg Enteric Coated Tablet PO 81 mg DAILY PHILLY Administration Bisacodyl 10 mg 02/10/20 12:26 02/10/20 20:40 Bisacodyl 5 Mg Tab PO 10 mg DAILYPRN PRN Administration Constipation Ceftriaxone Sodium 1 gm/ 100 mls @ 200 mls/hr 02/11/20 14:00 02/11/20 14:23 Sodium Chloride IVPB 100 mls Q24HR PHILLY Administration Iron/Minerals/Multivitamins 1 tab 02/11/20 09:00 02/11/20 09:09 Multivitamin W/ Minerals 1 Tab PO 1 tab DAILY PHILLY Administration Metoprolol Succinate 50 mg 02/11/20 09:00 02/11/20 09:09 Metoprolol Succinate Xl 25 Mg Tab PO 50 mg DAILY PHILLY Administration Multivitamins/Zinc 1 tab 02/11/20 09:00 02/11/20 09:10 Stress 600 With Zinc 1 Tab PO 1 tab DAILY PHILLY Administration Nitroglycerin 0.5 inch 02/10/20 14:00 02/11/20 14:22 Nitroglycerin 2% Ointment 1 Inch/1 Gm Packet TOP Not Given Q8HR PHILLY Ondansetron HCl 4 mg 02/11/20 06:27 02/11/20 06:33 Ondansetron Pf 4 Mg/2 Ml Vial IVP 4 mg Q6H PRN Administration Nausea/Vomiting Sodium Chloride 10 ml 02/10/20 12:26 02/11/20 06:33 Flush - Normal Saline 10 Ml Syringe IVF 10 ml PRN PRN Administration Saline Flush - Exam General Appearance: awake alert Eye: anicteric sclera ENT: moist mucosa Neck: supple Heart: RRR Respiratory: CTAB Gastrointestinal: soft, non-tender Skin - other findings: Neurofibromatosis all over the body Psychiatric: normal affect, normal behavior Hosp A/P - Plan Assessment/plan: Chest pain Continue to monitor patient on telemetry. Chest pain has now resolved. Watch for recurrence. Elevated troponin Could be secondary to tachycardia. UTI Continue ceftriaxone. Follow urine culture. Anemia Monitor H&H, transfuse as needed. History of palpitations Continue metoprolol
[2020-02-11] MEDS: Oxybutynin 5 MG TAB PO SCH (20:54)
[2020-02-11] MEDS: Bisacodyl 5 MG TAB PO PRN (20:58)
[2020-02-12] MEDS ORDERED: traMADol HCl 50 MG TAB PO SCH ×2 (00:30→12:15)
[2020-02-12] MEDS: Melatonin 3 MG TAB PO PRN ×2 (00:43→20:29)
[2020-02-12] MEDS: Nitroglycerin 2% Ointment 1 INCH/1 GM Packet TOP SCH ×3 (05:45→22:41)
[2020-02-12] MEDS ORDERED: Enoxaparin Sodium 30 MG/0.3 ML SYRINGE SC SCH (09:00)
[2020-02-12] MEDS: Stress 600 With Zinc 1 TAB PO SCH (09:04)
[2020-02-12] MEDS: Multivitamin W/ Minerals 1 TAB PO SCH (09:05)
[2020-02-12] MEDS: Aspirin 81 mg Enteric Coated Tablet PO SCH (09:05)
[2020-02-12] MEDS ORDERED: Ciprofloxacin 500 MG TAB PO SCH (11:00)
[2020-02-12] MEDS: Senokot S 8.6-50 MG TAB PO PRN (11:21)
[2020-02-12] MEDS: HYDROcodone/Acetaminophen 5/325 mg Tablet PO PRN ×2 (11:22→20:30)
[2020-02-12 12:11] LABS: #Basophils 0.1 thou/uL (0.0-0.2); #Eosinphils 0.4 thou/uL (0.0-0.7); #Lymphocytes 0.8 thou/uL (1.20-3.40); #Monocytes 0.9 thou/uL (0.11-0.59); #Neutrophils 6.6 thou/uL (1.40-6.50); %Basophils 0.8 % (0.0-1.0); %Eosinophils 4.4 % (0.0-10.0); %Lymphocytes 9.1 % (21.0-51.0); %Monocytes 10.1 % (0.0-10.0); %Neutrophils 75.6 % (42.0-75.0); Hemoglobin 6.9 g/dL (12.0-16.0); Mean Corpuscular Hemoglobin 33.3 pg (27.0-31.0); Mean Platelet Volume 8.8 fL (7.4-10.4); Platelet Count 239 thou/uL (130-400); RBC Distribution Width 11.7 % (11.5-14.5); Red Blood Cell (RBC) Count 2.06 mill/uL (4.20-5.40); White Blood Cell (WBC) Count 8.7 thou/uL (4.8-10.8)
[2020-02-12 12:33] LABS: Anion Gap 12 mmol/L (10-20); BUN (Urea Nitrogen) 47 mg/dL (9.8-20.1); Calc. Creatinine Clearance 31 mL/min (70-130); Calcium 9.2 mg/dL (7.8-10.44); Carbon Dioxide 20 mmol/L (23-31); Chloride 112 mmol/L (98-107); Glucose 99 mg/dL (83-110); Potassium 4.1 mmol/L (3.5-5.1); Sodium 140 mmol/L (136-145)
--- NOTE | 2020-02-12 13:24 | PDOC.CPN ---
- Subjective Date: 02/12/20 Time: 10:30 Interval history: Patient denies any new episodes of chest pain or fast heart rates or palpitations. Her HR remained WNL throughout the night. She states she did not sleep well and that both of her legs were hurting last night, she states that her legs feel better this morning. - Review of Systems General: denies: fever/chills, weight/appetite/sleep changes, night sweats, fatigue Respiratory: denies: cough, congestion, shortness of breath, exercise intolerance Cardiovascular: denies: chest pain, palpitation, edema, paroxysmal nocturnal dyspnea, orthopnea Gastrointestinal: denies: nausea, vomiting, diarrhea, constipation, abd pain, GI bleeding Musculoskeletal: reports: pain (pain to BLE last night, feeling better this morning) Neurological: denies: numbness, syncope, seizure, weakness - Objective Allergies/Adverse Reactions: Allergies Allergy/AdvReac Type Severity Reaction Status Date / Time erythromycin lactobionate Allergy Intermediate Verified 06/03/19 12:55 [From Erythrocin] Visit Medications: Current Medications Acetaminophen (Acetaminophen 325 Mg Tab) 650 mg PO Q4H PRN PRN Reason: Headache/Fever/Mild Pain (1-3) Last Admin: 02/11/20 22:15 Dose: 650 mg Documented by: Hydrocodone Bitart/Acetaminophen (Hydrocodone/Acetaminophen 5/325 Mg Tablet) 1 tab PO Q6H PRN PRN Reason: Moderate to Severe Pain (6-10) Last Admin: 02/12/20 11:22 Dose: 1 tab Documented by: Aspirin (Aspirin 81 Mg Enteric Coated Tablet) 81 mg PO DAILY [facility] Last Admin: 02/12/20 09:05 Dose: 81 mg Documented by: Bisacodyl (Bisacodyl 5 Mg Tab) 10 mg PO DAILYPRN PRN PRN Reason: Constipation Last Admin: 02/11/20 20:58 Dose: 10 mg Documented by: Ciprofloxacin (Ciprofloxacin 500 Mg Tab) 500 mg PO 0600,1999 [facility] Iron/Minerals/Multivitamins (Multivitamin W/ Minerals 1 Tab) 1 tab PO DAILY [facility] Last Admin: 02/12/20 09:05 Dose: 1 tab Documented by: Melatonin (Melatonin 3 Mg Tab) 3 mg PO HS PRN PRN Reason: Insomnia Last Admin: 02/12/20 00:43 Dose: 3 mg Documented by: Metoprolol Succinate (Metoprolol Succinate Xl 25 Mg Tab) 50 mg PO DAILY [facility] Last Admin: 02/12/20 09:05 Dose: 50 mg Documented by: Multivitamins/Zinc (Stress 600 With Zinc 1 Tab) 1 tab PO DAILY [facility] Last Admin: 02/12/20 09:04 Dose: 1 tab Documented by: Nitroglycerin (Nitroglycerin 2% Ointment 1 Inch/1 Gm Packet) 0.5 inch TOP Q8HR [facility] Last Admin: 02/12/20 05:45 Dose: Not Given Documented by: Oxybutynin Chloride (Oxybutynin 5 Mg Tab) 20 mg PO HS [facility] Last Admin: 02/11/20 20:54 Dose: 20 mg Documented by: Senna/Docusate Sodium (Senokot S 8.6-50 Mg Tab) 2 tab PO BID PRN PRN Reason: Constipation Last Admin: 02/12/20 11:21 Dose: 2 tab Documented by: Sodium Chloride (Flush - Normal Saline 10 Ml Syringe) 10 ml IVF PRN PRN PRN Reason: Saline Flush Last Admin: 02/11/20 06:33 Dose: 10 ml Documented by: Tramadol HCl (Tramadol Hcl 50 Mg Tab) 50 mg PO Q6H PRN PRN Reason: Mild-Moderate Pain (1-5) Tramadol HCl (Tramadol Hcl 50 Mg Tab) 50 mg PO NOW [facility] Stop: 02/12/20 15:00 Last Admin: 02/12/20 12:29 Dose: Not Given Documented by: Vital Signs & Weight: Vital Signs Temp Pulse Resp BP Pulse Ox 02/12/20 11:16 97.8 F 82 14 120/58 L 99 02/12/20 11:07 96 02/12/20 07:44 97.0 F L 83 18 116/58 L 96 02/12/20 04:00 98 F 76 16 113/52 L 99 Weight 90 lb 9 oz - Physical Exam General: alert & oriented x3, appears well, no apparent distress HEENT: mucus membranes moist Neck: supple neck Cardiac: regular rate, audible murmur (severe MR) Lungs: clear to auscultation, no wheeze, rales, rhonchi Neuro: grossly intact Abdomen: soft, non-tender Extremities: no edema, 2+ Posterior Tibial, 2+ Dorsalis Pedus Skin: other (Neurofibromatosis all over body) Musculoskeletal: normal range of motion - Labs Result Diagrams: 02/12/20 15:18 02/12/20 12:02 Troponin/CKMB CK-MB (CK-2) 3.9 ng/mL (0-6.6) 02/10/20 10:31 Troponin I 0.384 ng/mL (< 0.028) H* 02/10/20 16:43 - EKG Interpretation EKG Method: Telemetry EKG: sinus rhythm - Assessment/Plan Assessment/Plan: 1. Elevation in cardiac enzymes. This could be caused by rapid heart rate. There were no acute ST-segment changes on her EKG to indicate ischemia. Would like for her to have stress test, but her hemoglobin has dropped to 6.9, she will more than likely need blood transfusion before having stress test. She has no previous history of coronary artery disease, her ECHO 02/11/2020 showed EF 55- 60%, severe mitral regurgitation, mild AV sclerosis and mild tricuspid regu rgiation. 2. History of dislipidemia: Her HDL was 47 and her LDL 113 in August 2019 3. Severe mitral regurgitation: She may eventually need to undergo a mitral valve clip if she develops signs of congestive heart failure. Her EF is 55-60% and shows moderate left atrium dilation. 4. Anemia: Her hemoglobin has dropped again this morning to 6.9. Will order to transfuse 2 units of PRBC's. GI consult needed for possible endoscopy. Have ordered guiac stool samples, they are still uncollected. We will continue to monitor the patient and will plan for stress testing once her hemoglobin levels have increased. Pt. seen and eval. by me. I agree with the a/P by the SENIOR BENEFITS ANALYST. Transfuse 2 units prbc's today as the Hgb. has dropped to 6.9. She is also dry so the actual Hgb/Hct. will probably be lower. GI to see pt. Further recommendations after seen by GI and felt to be stable for further eval. gregory
[2020-02-12 14:42] LABS: Iron 58 ug/dL (50-170); Iron Binding Capacity, Total 291 mcg/dL (265-497)
[2020-02-12 15:37] LABS: Reticulocyte Count 4.2 % (0.5-1.5)
[2020-02-12 15:42] LABS: Hemoglobin 6.4 g/dL (12.0-16.0); Mean Corpuscular HGB CONC 32.3 g/dL (32.0-36.0); Mean Corpuscular Hemoglobin 33.5 pg (27.0-31.0); Mean Platelet Volume 9.2 fL (7.4-10.4); Platelet Count 219 thou/uL (130-400); RBC Distribution Width 11.5 % (11.5-14.5); Red Blood Cell (RBC) Count 1.91 mill/uL (4.20-5.40); White Blood Cell (WBC) Count 9.5 thou/uL (4.8-10.8)
[2020-02-12 15:58] LABS: Band 2 % (5-11); Eosinophils 8 % (0-10); Lymphocytes 8 % (21-51); MDiff Complete? YES; Macrocytosis SLIGHT = 6-15 cells (100X) (0-5/hpf); Monocytes 4 % (0-10); Neutrophil 78 % (42-75); Ovalocytes SLIGHT = 2-5 cells (100X) (0-1/hpf); Platelet Morphology Comment Appears Adequate; Polychromasia SLIGHT = 2-3 cells (100X) (0-2/hpf)
--- NOTE | 2020-02-12 18:41 | PDOC.HOSPP ---
- Subjective Encounter Date: 02/12/20 Encounter Time: 09:30 Subjective: Patient seen for follow-up regarding anemia. She denies any chest pain or shortness of breath. - Objective Vital Signs & Weight: Vital Signs (12 hours) Temp Pulse Pulse Resp BP BP Pulse Ox 02/12/20 15:09 98.4 F 71 16 110/53 L 02/12/20 11:16 97.8 F 82 14 120/58 L 99 02/12/20 11:07 96 02/12/20 07:44 97.0 F L 83 18 116/58 L 96 Weight Weight 90 lb 9 oz I&O: 02/11/20 02/12/20 02/13/20 06:59 06:59 06:59 Intake Total 460 560 420 Output Total 900 680 200 Balance -440 -120 220 Result Diagrams: 02/12/20 15:18 02/12/20 12:02 Additional Labs: I reviewed patient's labs and MAR EKG Reviewed by me: Yes (Normal sinus rhythm on telemetry) Hospitalist ROS - Review of Systems Cardiovascular: denies: chest pain, palpitations, orthopnea, paroxysmal noc. dyspnea, edema, light headedness Gastrointestinal: denies: nausea, vomiting, abdominal pain, diarrhea, constipation, melena, hematochezia - Medication Medications: Active Medications Generic Name Dose Route Start Last Admin Trade Name Freq PRN Reason Stop Dose Admin Acetaminophen 650 mg 02/10/20 12:26 02/11/20 22:15 Acetaminophen 325 Mg Tab PO 650 mg Q4H PRN Administration Headache/Fever/Mild Pain (1-3) Hydrocodone Bitart/Acetaminophen 1 tab 02/12/20 02:36 02/12/20 11:22 Hydrocodone/Acetaminophen 5/325 Mg Tablet PO 1 tab Q6H PRN Administration Moderate to Severe Pain (6-10) Aspirin 81 mg 02/11/20 09:00 02/12/20 09:05 Aspirin 81 Mg Enteric Coated Tablet PO 81 mg DAILY PHILLY Administration Bisacodyl 10 mg 02/10/20 12:26 02/11/20 20:58 Bisacodyl 5 Mg Tab PO 10 mg DAILYPRN PRN Administration Constipation Iron/Minerals/Multivitamins 1 tab 02/11/20 09:00 02/12/20 09:05 Multivitamin W/ Minerals 1 Tab PO 1 tab DAILY PHILLY Administration Melatonin 3 mg 02/12/20 00:16 02/12/20 00:43 Melatonin 3 Mg Tab PO 3 mg HS PRN Administration Insomnia Metoprolol Succinate 50 mg 02/11/20 09:00 02/12/20 09:05 Metoprolol Succinate Xl 25 Mg Tab PO 50 mg DAILY PHILLY Administration Multivitamins/Zinc 1 tab 02/11/20 09:00 02/12/20 09:04 Stress 600 With Zinc 1 Tab PO 1 tab DAILY PHILLY Administration Nitroglycerin 0.5 inch 02/10/20 14:00 02/12/20 15:31 Nitroglycerin 2% Ointment 1 Inch/1 Gm Packet TOP Not Given Q8HR PHILLY Oxybutynin Chloride 20 mg 02/11/20 21:00 02/11/20 20:54 Oxybutynin 5 Mg Tab PO 20 mg HS PHILLY Administration Senna/Docusate Sodium 2 tab 02/10/20 12:26 02/12/20 11:21 Senokot S 8.6-50 Mg Tab PO 2 tab BID PRN Administration Constipation Sodium Chloride 10 ml 02/10/20 12:26 02/11/20 06:33 Flush - Normal Saline 10 Ml Syringe IVF 10 ml PRN PRN Administration Saline Flush - Exam General Appearance: awake alert Eye: anicteric sclera ENT: moist mucosa Neck: supple Heart: RRR Respiratory: CTAB Gastrointestinal: soft, non-tender Skin: no rashes Skin - other findings: Neurofibromatosis Psychiatric: normal affect, normal behavior Hosp A/P - Plan Assessment/plan: Anemia Patient's hemoglobin dropped today, patient to receive packed RBC transfusion. Check iron indices. Consult gastroenterology. Chest pain No chest pain at this time. Elevated troponin Most likely secondary to tachycardia. UTI E. coli sensitive to most antibiotics, discontinue ceftriaxone and start ciprofloxacin. History of palpitations Continue metoprolol
[2020-02-12] MEDS: Ciprofloxacin 500 MG TAB PO SCH (20:21)
[2020-02-12] MEDS: Oxybutynin 5 MG TAB PO SCH (20:29)
--- NOTE | 2020-02-13 00:51 | CON ---
DATE OF CONSULTATION: 02/12/2020 REASON FOR CONSULTATION: Anemia. CONSULTING PROVIDER: Lewis Zayas MD HISTORY OF PRESENT ILLNESS: The patient is an 84-year-old female with past medical history of extensive neurofibromatosis, osteoporosis, chronic kidney disease, and pancreatitis, who initially presented to the hospital with worsening bilateral leg pain. She states that approximately 2 days ago, she began having increased weakness of her bilateral lower extremities to the point where the patient was unable to adequately ambulate around her home and ultimately prompted her to call the ambulance in order for further evaluation. She was ultimately brought to [facility] for evaluation in the ER and noted to have a significant macrocytic anemia and over the course of the last 48 hours, has had decreasing H and H concerning for possible bleeding source. However, upon conferring with the patient today (the patient is a very poor historian), she currently denies any hematemesis or hematochezia. However, upon further questioning, she did state that she might have had a solid black stool last week that has not since recurred. She also states that she has been having increasing constipation characterized as having one solid bowel movement every 1 to 2 days that would require the use of stool softeners daily in order to facilitate defecation. She currently denies any outpatient use of NSAIDs other than baby aspirin that has been prescribed by her dispatcher motor vehicle. Otherwise, she denies any nausea, vomiting, fevers, chills, hematemesis, hematochezia, dysphagia, odynophagia, or weight loss. Of note, the patient was noted to have an increased troponin level on admission and has been evaluated by the Cardiology Service with the most likely etiology being her current anemia and resultant demand ischemia. She also denies any history of GI malignancies. REVIEW OF SYSTEMS: A 10-category review of systems was obtained with all responses negative except for the pertinent positives as listed in HPI (although the patient is a poor historian and could not adequately answer a number of these). PAST MEDICAL HISTORY: As per HPI. PAST SURGICAL HISTORY: Cataract surgery, colonoscopy, tonsillectomy, and parathyroidectomy. FAMILY HISTORY: Denies any GI malignancies. SOCIAL HISTORY: Denies any tobacco, alcohol, or illicit drug use. OUTPATIENT MEDICATIONS: Reviewed. ALLERGIES: ERYTHROMYCIN. PHYSICAL EXAMINATION: VITAL SIGNS: Temperature 98.4, pulse 71, blood pressure 110/53, respiratory rate 16, saturating 99% on room air. GENERAL: The patient was lying in bed, in no acute distress. Alert and oriented x3. Significantly hard of hearing. HEENT: Normocephalic and atraumatic. No scleral icterus noted. NECK: Supple. No JVD. CARDIOVASCULAR: Regular rate, rhythm. However, she had a 4/6 systolic murmur best heard at the left lower sternal border in the midclavicular line and radiated over the entire precordium. RESPIRATORY: Clear to auscultation bilaterally with no discernible wheezes or rales. ABDOMEN: Normoactive bowel sounds. Soft and nondistended. Mild tenderness to palpation in the periumbilical and right upper quadrant. EXTREMITIES: No cyanosis, clubbing, or edema. SKIN: Diffuse nodules occurring in her entire body consistent with neurofibromatosis. LABORATORY DATA: CBC with a white blood cell count of 8.7, hemoglobin 6.9, hematocrit 21.5, platelets 239, MCV 104, RDW 11.7. INR 1.0. Chemistry with a sodium of 140, potassium 4.1, chloride 112, CO2 of 20, BUN of 47, creatinine 0.9, glucose 99. B12 of 910, folate 17.3. Urine culture was positive for E coli. Iron 58, ferritin 23.1, TIBC 291. Peripheral smear is still pending at this time. IMAGING DATA: CT angiography was obtained on February 10, 2020, which showed trace bilateral pleural effusions as well as left renal cyst. The thyroid was also enlarged and contained numerous calcifications along with calcified granulomas seen in the liver and spleen. However, no filling defects were noted to suggest pulmonary emboli, and there was no evidence of hilar or mediastinal lymphadenopathy. ASSESSMENT AND PLAN: The patient is an 84-year-old female with a past medical history of neurofibromatosis, osteoporosis, chronic kidney disease, and prior pancreatitis, presenting with a macrocytic anemia with downtrending hemoglobin and hematocrit. Macrocytic anemia: The patient is presenting with initial complaint surrounding bilateral lower extremity weakness and pain that ultimately brought her to the hospital with noting elevated troponins on labs, indicative of possible cardiac process. However, she did have a moderate anemia when compared to her prior laboratory values and has since downtrend over the last 48 hours. However, at this time, she does not endorse any overt episodes of GI bleeding with no clinical hematemesis, melena, or hematochezia since she has been in the hospital. She does state she had one solid darker/black bowel movement last week, but was solid in consistency, which was not consistent with a melenic-type picture. At this time, the origin of her anemia is unknown but given the macrocytic nature of it, could potentially include multiple myeloma, myelodysplastic syndrome, drug-induced macrocytosis (less likely given her outpatient medications), alcohol or liver disease (unlikely given her normal LFTs), hypothyroidism. However, could be macrocytosis at baseline with recent GI bleed that has not had enough time to generate a microcytic picture (acute GI bleed). Given the possibility of an acute GI bleed, I have discussed with the patient about endoscopic evaluation and at this time, she would prefer not to proceed with any procedures until she has time to discuss the holiness of these things with her brothers. I will attempt to contact her brothers in order to discuss the current clinical situation. RECOMMENDATIONS: 1. We would continue to trend her H and H and transfuse as necessary to maintain an H and H of 7/21. 2. Continue to monitor clinically for signs of active GI bleeding. 3. We would attempt to refrain from any anticoagulation in light of a possible bleeding process going on. 4. We would obtain a peripheral smear for further evaluation of her macrocytic anemia. 5. We would obtain an SPEP and UPEP for possible multiple myeloma in addition to kappa and lambda chains. 6. We will consider progressing with upper endoscopy for further evaluation given her elevated BUN to creatinine ratio and recent episode of dark black stool. However, we would defer for now given the patient's preference. The patient has also never had a colonoscopy, so a thought should be given to obtaining this procedure at the time of upper endoscopy if performed. Dr. Vizcaino will be following this patient tomorrow. Please call him with any questions. Job ID: [id number]
[2020-02-13 05:33] LABS: #Basophils 0.1 thou/uL (0.0-0.2); #Eosinphils 0.5 thou/uL (0.0-0.7); #Lymphocytes 0.9 thou/uL (1.20-3.40); #Monocytes 1.2 thou/uL (0.11-0.59); %Basophils 0.7 % (0.0-1.0); %Eosinophils 4.8 % (0.0-10.0); %Lymphocytes 9.5 % (21.0-51.0); %Monocytes 12.5 % (0.0-10.0); %Neutrophils 72.5 % (42.0-75.0); Hemoglobin 9.2 g/dL (12.0-16.0); Mean Corpuscular HGB CONC 33.8 g/dL (32.0-36.0); Mean Corpuscular Hemoglobin 31.1 pg (27.0-31.0); Mean Corpuscular Volume 91.9 fL (78.0-98.0); Mean Platelet Volume 8.9 fL (7.4-10.4); Platelet Count 206 thou/uL (130-400); RBC Distribution Width 18.3 % (11.5-14.5); Red Blood Cell (RBC) Count 2.95 mill/uL (4.20-5.40); White Blood Cell (WBC) Count 9.6 thou/uL (4.8-10.8)
[2020-02-13 05:51] LABS: Anion Gap 14 mmol/L (10-20); BUN (Urea Nitrogen) 51 mg/dL (9.8-20.1); Calc. Creatinine Clearance 34 mL/min (70-130); Calcium 9.1 mg/dL (7.8-10.44); Carbon Dioxide 20 mmol/L (23-31); Chloride 111 mmol/L (98-107); Glucose 86 mg/dL (83-110); Potassium 4.6 mmol/L (3.5-5.1); Sodium 140 mmol/L (136-145)
[2020-02-13] MEDS: Nitroglycerin 2% Ointment 1 INCH/1 GM Packet TOP SCH ×3 (06:00→21:53)
[2020-02-13] MEDS: Ciprofloxacin 500 MG TAB PO SCH ×2 (07:20→20:35)
[2020-02-13] MEDS: Multivitamin W/ Minerals 1 TAB PO SCH (08:57)
[2020-02-13] MEDS: Aspirin 81 mg Enteric Coated Tablet PO SCH (08:57)
[2020-02-13] MEDS: Stress 600 With Zinc 1 TAB PO SCH (08:57)
[2020-02-13] MEDS: HYDROcodone/Acetaminophen 5/325 mg Tablet PO PRN ×2 (08:59→23:44)
--- NOTE | 2020-02-13 13:36 | PDOC.CPN ---
- Subjective Date: 02/13/20 Time: 08:25 Interval history: No overnight events, she still is c/o bilateral leg pain. She denies any chest pain, palpitations, shortness of breath. - Review of Systems General: denies: fever/chills, weight/appetite/sleep changes, night sweats, fatigue Respiratory: denies: cough, congestion, shortness of breath, exercise intolerance Cardiovascular: denies: chest pain, palpitation, edema, paroxysmal nocturnal dyspnea, orthopnea Musculoskeletal: reports: pain (BLE) Neurological: denies: numbness, syncope, seizure, weakness - Objective Allergies/Adverse Reactions: Allergies Allergy/AdvReac Type Severity Reaction Status Date / Time erythromycin lactobionate Allergy Intermediate Verified 06/03/19 12:55 [From Erythrocin] Visit Medications: Current Medications Acetaminophen (Acetaminophen 325 Mg Tab) 650 mg PO Q4H PRN PRN Reason: Headache/Fever/Mild Pain (1-3) Last Admin: 02/11/20 22:15 Dose: 650 mg Documented by: Hydrocodone Bitart/Acetaminophen (Hydrocodone/Acetaminophen 5/325 Mg Tablet) 1 tab PO Q6H PRN PRN Reason: Moderate to Severe Pain (6-10) Last Admin: 02/13/20 08:59 Dose: 1 tab Documented by: Aspirin (Aspirin 81 Mg Enteric Coated Tablet) 81 mg PO DAILY [facility] Last Admin: 02/13/20 08:57 Dose: 81 mg Documented by: Bisacodyl (Bisacodyl 5 Mg Tab) 10 mg PO DAILYPRN PRN PRN Reason: Constipation Last Admin: 02/11/20 20:58 Dose: 10 mg Documented by: Ciprofloxacin (Ciprofloxacin 500 Mg Tab) 500 mg PO 0600,1999 [facility] Last Admin: 02/13/20 07:20 Dose: 500 mg Documented by: Iron/Minerals/Multivitamins (Multivitamin W/ Minerals 1 Tab) 1 tab PO DAILY [facility] Last Admin: 02/13/20 08:57 Dose: 1 tab Documented by: Melatonin (Melatonin 3 Mg Tab) 3 mg PO HS PRN PRN Reason: Insomnia Last Admin: 02/12/20 20:29 Dose: 3 mg Documented by: Metoprolol Succinate (Metoprolol Succinate Xl 25 Mg Tab) 50 mg PO DAILY [facility] Last Admin: 02/13/20 08:57 Dose: 50 mg Documented by: Multivitamins/Zinc (Stress 600 With Zinc 1 Tab) 1 tab PO DAILY [facility] Last Admin: 02/13/20 08:57 Dose: 1 tab Documented by: Nitroglycerin (Nitroglycerin 2% Ointment 1 Inch/1 Gm Packet) 0.5 inch TOP Q8HR PHILLY Last Admin: 02/13/20 06:00 Dose: Not Given Documented by: Oxybutynin Chloride (Oxybutynin 5 Mg Tab) 20 mg PO HS [facility] Last Admin: 02/12/20 20:29 Dose: 20 mg Documented by: Senna/Docusate Sodium (Senokot S 8.6-50 Mg Tab) 2 tab PO BID PRN PRN Reason: Constipation Last Admin: 02/12/20 11:21 Dose: 2 tab Documented by: Sodium Chloride (Flush - Normal Saline 10 Ml Syringe) 10 ml IVF PRN PRN PRN Reason: Saline Flush Last Admin: 02/11/20 06:33 Dose: 10 ml Documented by: Tramadol HCl (Tramadol Hcl 50 Mg Tab) 50 mg PO Q6H PRN PRN Reason: Mild-Moderate Pain (1-5) Vital Signs & Weight: Vital Signs Temp Pulse Resp BP Pulse Ox 02/13/20 08:55 97.7 F 81 18 142/61 H 94 L 02/13/20 04:00 98.3 F 75 16 128/59 L 97 Weight 90 lb - Physical Exam General: alert & oriented x3, appears well, no apparent distress HEENT: mucus membranes moist Neck: no masses, no bruit Cardiac: regular rate and rhythm, systolic murmur Lungs: clear to auscultation, normal breath sounds, normal exam, no wheeze, rales, rhonchi Neuro: grossly intact, motor function intact Abdomen: soft, non-tender Skin: other (Neurofibromatosis all over body) Musculoskeletal: other (pain in BLE) - Labs Result Diagrams: 02/13/20 04:48 02/13/20 04:48 Troponin/CKMB CK-MB (CK-2) 3.9 ng/mL (0-6.6) 02/10/20 10:31 Troponin I 0.384 ng/mL (< 0.028) H* 02/10/20 16:43 - EKG Interpretation EKG Method: Telemetry EKG: sinus rhythm - Assessment/Plan Assessment/Plan: 1. Elevation in cardiac enzymes. This could be caused by rapid heart rate. There were no acute ST-segment changes on her EKG to indicate ischemia. Hemoglobin still too low for stress test, will continue to monitor. She has no previous history of coronary artery disease, her ECHO 02/11/2020 showed EF 55-60%, severe mitral regurgitation, mild AV sclerosis and mild tricuspid regurgiation. 2. History of dislipidemia: Her HDL was 47 and her LDL 113 in August 2019 3. Severe mitral regurgitation: She may eventually need to undergo a mitral valve clip if she develops signs of congestive heart failure. Her EF is 55-60% and shows moderate left atrium dilation. She denies shortness of breath, dyspnea on exertion, orthopnea, lower extremity edema 4. Anemia: Patient was transfused 2 units of PRBC's yesterday, her hemoglobin level increased to 9.2 this morning. Have ordered guiac stool samples, they are still uncollected. Yesterday, patient did not want to have upper & lower endoscopies, but when speaking to her this morning, she spoke with her family and would like to have upper & lower endoscopies to evaluate for GI bleeding as recommended by GI services. We will continue to monitor the patient and will plan for stress testing once her hemoglobin levels have increased and she remains stable. Pt. seen and eval. by me. I agree with the A/P by the [employer]. Chest clear. RRR. No arhythmias. gregory
--- NOTE | 2020-02-13 17:28 | PDOC.HOSPP ---
- Subjective Encounter Date: 02/13/20 Encounter Time: 08:00 Subjective: Seen for follow-up regarding acute blood loss anemia. She denies chest pain or shortness of breath. - Objective Vital Signs & Weight: Vital Signs (12 hours) Temp Pulse Resp BP Pulse Ox 02/13/20 16:00 98.3 F 71 20 129/62 94 L 02/13/20 08:55 97.7 F 81 18 142/61 H 94 L Weight Weight 90 lb I&O: 02/12/20 02/13/20 02/14/20 06:59 06:59 06:59 Intake Total 560 660 Output Total 680 600 Balance -120 60 Result Diagrams: 02/13/20 04:48 02/13/20 04:48 Additional Labs: Labs and MAR reviewed by me EKG Reviewed by me: Yes (Normal sinus rhythm on telemetry) Hospitalist ROS - Review of Systems Constitutional: denies: fever, chills, sweats, weakness, malaise Cardiovascular: denies: chest pain, palpitations, orthopnea, paroxysmal noc. dyspnea, edema, light headedness Gastrointestinal: denies: nausea, vomiting, abdominal pain, diarrhea, constipation, melena, hematochezia - Medication Medications: Active Medications Generic Name Dose Route Start Last Admin Trade Name Freq PRN Reason Stop Dose Admin Acetaminophen 650 mg 02/10/20 12:26 02/11/20 22:15 Acetaminophen 325 Mg Tab PO 650 mg Q4H PRN Administration Headache/Fever/Mild Pain (1-3) Hydrocodone Bitart/Acetaminophen 1 tab 02/12/20 02:36 02/13/20 08:59 Hydrocodone/Acetaminophen 5/325 Mg Tablet PO 1 tab Q6H PRN Administration Moderate to Severe Pain (6-10) Aspirin 81 mg 02/11/20 09:00 02/13/20 08:57 Aspirin 81 Mg Enteric Coated Tablet PO 81 mg DAILY PHILLY Administration Bisacodyl 10 mg 02/10/20 12:26 02/11/20 20:58 Bisacodyl 5 Mg Tab PO 10 mg DAILYPRN PRN Administration Constipation Ciprofloxacin 500 mg 02/12/20 20:00 02/13/20 07:20 Ciprofloxacin 500 Mg Tab PO 500 mg 0600,2000 PHILLY Administration Iron/Minerals/Multivitamins 1 tab 02/11/20 09:00 02/13/20 08:57 Multivitamin W/ Minerals 1 Tab PO 1 tab DAILY PHILLY Administration Melatonin 3 mg 02/12/20 00:16 02/12/20 20:29 Melatonin 3 Mg Tab PO 3 mg HS PRN Administration Insomnia Metoprolol Succinate 50 mg 02/11/20 09:00 02/13/20 08:57 Metoprolol Succinate Xl 25 Mg Tab PO 50 mg DAILY PHILLY Administration Multivitamins/Zinc 1 tab 02/11/20 09:00 02/13/20 08:57 Stress 600 With Zinc 1 Tab PO 1 tab DAILY PHILLY Administration Nitroglycerin 0.5 inch 02/10/20 14:00 02/13/20 16:37 Nitroglycerin 2% Ointment 1 Inch/1 Gm Packet TOP Not Given Q8HR PHILLY Oxybutynin Chloride 20 mg 02/11/20 21:00 02/12/20 20:29 Oxybutynin 5 Mg Tab PO 20 mg HS PHILLY Administration Senna/Docusate Sodium 2 tab 02/10/20 12:26 02/12/20 11:21 Senokot S 8.6-50 Mg Tab PO 2 tab BID PRN Administration Constipation Sodium Chloride 10 ml 02/10/20 12:26 02/11/20 06:33 Flush - Normal Saline 10 Ml Syringe IVF 10 ml PRN PRN Administration Saline Flush - Exam General Appearance: awake alert Eye: anicteric sclera ENT: dry oral mucosa Neck: supple Heart: RRR Respiratory: CTAB Gastrointestinal: soft, non-tender Skin: no rashes Skin - other findings: Neurofibromatosis Psychiatric: normal affect, normal behavior Hosp A/P - Plan Assessment/plan: Anemia Patient received packed RBC transfusion, hemoglobin improved to 9.2. Appreciate gastroenterology service input. Chest pain Resolved. Patient may need stress test prior to discharge. Elevated troponin Most likely secondary to tachycardia. UTI Continue ciprofloxacin. History of palpitations Continue metoprolol
[2020-02-13] MEDS: traMADol HCl 50 MG TAB PO PRN (18:41)
[2020-02-13] MEDS: Melatonin 3 MG TAB PO PRN (20:35)
[2020-02-13] MEDS: Oxybutynin 5 MG TAB PO SCH (20:38)
[2020-02-14] MEDS: Ciprofloxacin 500 MG TAB PO SCH ×2 (06:09→21:41)
[2020-02-14] MEDS: Nitroglycerin 2% Ointment 1 INCH/1 GM Packet TOP SCH ×3 (06:10→21:42)
--- NOTE | 2020-02-14 06:20 | PRG ---
DATE OF SERVICE: 02/13/2020 SUBJECTIVE: Ms. Farris is resting comfortably in bed. Her nieces are at the bedside. She is without complaints today except for mild epigastric discomfort and the family decided to go ahead and proceed with endoscopy. The patient is concerned she may not be able to tolerate the bowel prep. We have discussed this with planned for prep for tomorrow with clear liquid diet, procedure with Dr. Johnson on Tuesday and they are agreeable to this. MEDICATIONS: 1. Cipro. 2. Aspirin. 3. Bisacodyl. 4. Hydrocodone. 5. Multivitamin with iron. 6. Melatonin. 7. Metoprolol. 8. Multivitamin. 9. Zinc. 10. Nitroglycerin on chest wall. 11. Tramadol p.r.n. PHYSICAL EXAMINATION: GENERAL: She is resting comfortably in bed. She has neurofibromatosis with neurofibromas all over skin. She has no distress. She is very hard of hearing. VITAL SIGNS: Temperature is 98.3, pulse 71, blood pressure 129/62. LUNGS: Clear. HEART: Regular rate and rhythm. ABDOMEN: Soft and nontender. LABORATORY DATA: Hemoglobin was 8.2 on admission, dropped to 6.9. She received a unit of blood. She is 9.2 today. Urine culture showed E coli. She has been transfused 2 units of blood total. MCV 104, was 101 on admission, 91 now after transfusion, platelets 209. BUN and creatinine 51 and 0.8. Troponin 0.384 on admission. Liver function tests normal. Protein 5.9, albumin 3.5, B12 of 911, folate 17, TSH 2.2. COVID test negative on . Echocardiogram, EF 55%. CT chest on admission for shortness of breath negative for PE, trace bilateral effusions. ASSESSMENT: Anemia of unclear etiology. There are some reports of blood in the stool, but she had blood in her urine as well. Hemoccult was not performed, well it does not need to be. B12 and folate normal. Iron is 58, ferritin 23, TIBC 291. Hemoglobin back in August was 12 to 13. She does not take any anticoagulants at home, was on no PPIs. I am concerned about acute blood loss anemia as well. Elevated MCV could indicate some bone marrow dysfunction. There is no evidence of SPEP has been ordered. PLAN: Upper and lower endoscopies on Tuesday with bowel prep tomorrow and clear liquid diet tomorrow. Risks, benefits, and possible complications were discussed with the patient and family. She wished to proceed. Job ID: [id number]
[2020-02-14 07:52] LABS: #Eosinphils 0.5 thou/uL (0.0-0.7); #Monocytes 1.3 thou/uL (0.11-0.59); #Neutrophils 6.3 thou/uL (1.40-6.50); %Basophils 0.3 % (0.0-1.0); %Eosinophils 5.9 % (0.0-10.0); %Lymphocytes 10.4 % (21.0-51.0); %Monocytes 14.5 % (0.0-10.0); %Neutrophils 68.9 % (42.0-75.0); Mean Corpuscular HGB CONC 33.3 g/dL (32.0-36.0); Mean Corpuscular Hemoglobin 31.3 pg (27.0-31.0); Mean Corpuscular Volume 93.9 fL (78.0-98.0); Mean Platelet Volume 8.4 fL (7.4-10.4); Platelet Count 208 thou/uL (130-400); RBC Distribution Width 17.7 % (11.5-14.5); Red Blood Cell (RBC) Count 2.89 mill/uL (4.20-5.40); White Blood Cell (WBC) Count 9.2 thou/uL (4.8-10.8)
[2020-02-14 08:05] LABS: Anion Gap 13 mmol/L (10-20); BUN (Urea Nitrogen) 44 mg/dL (9.8-20.1); Calc. Creatinine Clearance 30 mL/min (70-130); Calcium 8.8 mg/dL (7.8-10.44); Carbon Dioxide 21 mmol/L (23-31); Chloride 110 mmol/L (98-107); Glucose 87 mg/dL (83-110); Potassium 4.5 mmol/L (3.5-5.1); Sodium 139 mmol/L (136-145)
[2020-02-14] MEDS: Aspirin 81 mg Enteric Coated Tablet PO SCH (08:55)
[2020-02-14] MEDS: Stress 600 With Zinc 1 TAB PO SCH (08:55)
[2020-02-14] MEDS: Multivitamin W/ Minerals 1 TAB PO SCH (08:55)
[2020-02-14] MEDS ORDERED: GoLYTELY 4,000 ml Bottle PO SCH ×2 (09:00→18:00)
--- NOTE | 2020-02-14 09:29 | PDOC.CPN ---
- Subjective Date: 02/14/20 Time: 07:45 Interval history: No over night events, she had no further episodes of tachycardia, she remains in SR. She denies any chest pain, palpitations, shortness of breath today. She is still c/o of bilateral leg pain. - Review of Systems Respiratory: denies: cough, congestion, shortness of breath, exercise intolerance Cardiovascular: denies: chest pain, palpitation, edema, paroxysmal nocturnal dy spnea, orthopnea Gastrointestinal: denies: nausea, vomiting, diarrhea, constipation, abd pain, GI bleeding Musculoskeletal: reports: pain (pain to bilateral legs, this is chronic for her) Neurological: denies: numbness, syncope, seizure, weakness - Objective Allergies/Adverse Reactions: Allergies Allergy/AdvReac Type Severity Reaction Status Date / Time erythromycin lactobionate Allergy Intermediate Verified 06/03/19 12:55 [From Erythrocin] Visit Medications: Current Medications Acetaminophen (Acetaminophen 325 Mg Tab) 650 mg PO Q4H PRN PRN Reason: Headache/Fever/Mild Pain (1-3) Last Admin: 02/11/20 22:15 Dose: 650 mg Documented by: Hydrocodone Bitart/Acetaminophen (Hydrocodone/Acetaminophen 5/325 Mg Tablet) 1 tab PO Q6H PRN PRN Reason: Moderate to Severe Pain (6-10) Last Admin: 02/13/20 23:44 Dose: 1 tab Documented by: Aspirin (Aspirin 81 Mg Enteric Coated Tablet) 81 mg PO DAILY [facility] [place] Last Admin: 02/14/20 08:55 Dose: 81 mg Documented by: Bisacodyl (Bisacodyl 5 Mg Tab) 10 mg PO DAILYPRN PRN PRN Reason: Constipation Last Admin: 02/11/20 20:58 Dose: 10 mg Documented by: Ciprofloxacin (Ciprofloxacin 500 Mg Tab) 500 mg PO 0600,2000 [facility] Last Admin: 02/14/20 06:09 Dose: 500 mg Documented by: Iron/Minerals/Multivitamins (Multivitamin W/ Minerals 1 Tab) 1 tab PO DAILY [facility] [place] Last Admin: 02/14/20 08:55 Dose: 1 tab Documented by: Melatonin (Melatonin 3 Mg Tab) 3 mg PO HS PRN PRN Reason: Insomnia Last Admin: 02/13/20 20:35 Dose: 3 mg Documented by: Metoprolol Succinate (Metoprolol Succinate Xl 25 Mg Tab) 50 mg PO DAILY [facility] [place] Last Admin: 02/14/20 08:55 Dose: 50 mg Documented by: Multivitamins/Zinc (Stress 600 With Zinc 1 Tab) 1 tab PO DAILY [facility] Last Admin: 02/14/20 08:55 Dose: 1 tab Documented by: Nitroglycerin (Nitroglycerin 2% Ointment 1 Inch/1 Gm Packet) 0.5 inch TOP Q8HR [facility] Last Admin: 02/14/20 06:10 Dose: Not Given Documented by: Oxybutynin Chloride (Oxybutynin 5 Mg Tab) 20 mg PO HS [facility] [place] Last Admin: 02/13/20 20:38 Dose: 20 mg Documented by: Polyethylene Glycol/Electrolytes (Golytely 4,000 Ml Bottle) 4,000 ml PO 1800 [facility] [place] Stop: 02/14/20 23:00 Senna/Docusate Sodium (Senokot S 8.6-50 Mg Tab) 2 tab PO BID PRN PRN Reason: Constipation Last Admin: 02/12/20 11:21 Dose: 2 tab Documented by: Sodium Chloride (Flush - Normal Saline 10 Ml Syringe) 10 ml IVF PRN PRN PRN Reason: Saline Flush Last Admin: 02/11/20 06:33 Dose: 10 ml Documented by: Sodium Chloride (Flush - Normal Saline 10 Ml Syringe) 10 ml IVF PRN PRN PRN Reason: Saline Flush Sodium Chloride (Flush - Normal Saline 10 Ml Syringe) 10 ml IVF PRN PRN PRN Reason: Saline Flush Tramadol HCl (Tramadol Hcl 50 Mg Tab) 50 mg PO Q6H PRN PRN Reason: Mild-Moderate Pain (1-5) Last Admin: 02/13/20 18:41 Dose: 50 mg Documented by: Vital Signs & Weight: Vital Signs Temp Pulse Resp BP Pulse Ox 02/14/20 08:25 95 02/14/20 04:00 98.1 F 78 18 91/54 L 95 02/14/20 00:00 83 20 Weight 90 lb 12.8 oz - Physical Exam General: alert & oriented x3, appears well, no apparent distress HEENT: mucus membranes moist Neck: supple neck, no masses, no bruit Cardiac: regular rate, systolic murmur Lungs: normal breath sounds, normal exam, no wheeze, rales, rhonchi Neuro: grossly intact Abdomen: soft, non-tender Extremities: no cyanosis, no clubbing, no edema, 2+ Posterior Tibial, 2+ Dorsalis Pedus Skin: other (Neurofibromatosis all over body) Musculoskeletal: normal range of motion, no pain, no fluid collection - Labs Result Diagrams: 02/14/20 07:34 02/14/20 07:34 Troponin/CKMB CK-MB (CK-2) 3.9 ng/mL (0-6.6) 02/10/20 10:31 Troponin I 0.384 ng/mL (< 0.028) H* 02/10/20 16:43 - EKG Interpretation EKG Method: Telemetry EKG: sinus rhythm - Assessment/Plan Assessment/Plan: 1. Elevation in cardiac enzymes. This could be caused by rapid heart rate. There were no acute ST-segment changes on her EKG to indicate ischemia. Hemoglobin still low. No need for urgent stress test. No further chest pain or ECG changes, will continue to monitor. She has no previous history of coronary artery disease, her ECHO 02/11/2020 showed EF 55-60%, severe mitral regurgitation, mild AV sclerosis and mild tricuspid regurgiation. 3. Severe mitral regurgitation: She may eventually need to undergo a mitral valve clip if she develops signs of congestive heart failure. Her EF is 55-60% and shows moderate left atrium dilation. She denies shortness of breath, dyspnea on exertion, orthopnea, lower extremity edema 4. Anemia: Patient Hemoglobin 9.0 this morning, plan for upper & lower endoscopies tomorrow. We will continue to monitor the patient and will plan for stress testing once her hemoglobin levels have increased and she remains stable. This could be done as an outpt. since she has remained stable unless she has something that may require general surgery after the endoscopoy is performed. She continues to deny any cardiac complaints upon this admission. Pt. seen and eval. by me. She was sleeping comfortably, no SOB. Chest clear. RRR. Ig GI workup is negative, she could be d/c'd.gregory
--- NOTE | 2020-02-14 13:22 | PRG ---
DATE OF SERVICE: 02/14/2020 SUBJECTIVE: Ms. Farris is doing fine with her clear liquid diet today. No overt GI bleeding. OBJECTIVE: VITAL SIGNS: Temperature 97.6, pulse 67, and blood pressure 115/55. GENERAL: She is in no acute distress. Alert and oriented x3. LUNGS: Clear to auscultation bilaterally. HEART: Regular rate and rhythm without murmur. ABDOMEN: Soft, nontender, and nondistended. Bowel sounds are present. EXTREMITIES: No lower extremity edema. LABORATORY DATA: White blood cell count 9.2, hemoglobin 9.0, and platelets 208. Creatinine 0.94. IMPRESSION: 1. Anemia, which is likely multifactorial, but could have a significant component of gastrointestinal blood loss. 2. Hematochezia. RECOMMENDATIONS: She is undergoing bowel prep today for EGD and colonoscopy tomorrow. Job ID: [id number]
[2020-02-14] MEDS: HYDROcodone/Acetaminophen 5/325 mg Tablet PO PRN (15:36)
[2020-02-14 16:38] LABS: Kappa Lambda Light Chain Ratio 1.77 (0.26-1.65); Kappa Light Chains 44.4 mg/L (3.3-19.4); Lambda Light Chain 25.1 mg/L (5.7-26.3)
--- NOTE | 2020-02-14 17:11 | PDOC.HOSPP ---
- Subjective Encounter Date: 02/14/20 Encounter Time: 09:00 Subjective: Pt seen for followup re: anemia. Denies any new complaints. - Objective Vital Signs & Weight: Vital Signs (12 hours) Temp Pulse Resp BP Pulse Ox 02/14/20 15:48 98.0 F 79 17 127/60 97 02/14/20 11:27 97.6 F 67 16 115/55 L 95 02/14/20 08:25 95 02/14/20 08:00 98.1 F 84 17 125/59 L 95 Weight Weight 90 lb 12.8 oz I&O: 02/13/20 02/14/20 02/15/20 06:59 06:59 06:59 Intake Total 660 240 Output Total 600 200 Balance 60 40 Result Diagrams: 02/14/20 07:34 02/14/20 07:34 Additional Labs: I reviewed patient's labs and MAR EKG Reviewed by me: Yes (Telemetry shows normal sinus rhythm) Hospitalist ROS - Review of Systems Cardiovascular: denies: chest pain, palpitations, paroxysmal noc. dyspnea, e oliver, light headedness Gastrointestinal: denies: nausea, vomiting, abdominal pain, constipation, melena, hematochezia - Medication Medications: Active Medications Generic Name Dose Route Start Last Admin Trade Name Freq PRN Reason Stop Dose Admin Acetaminophen 650 mg 02/10/20 12:26 02/11/20 22:15 Acetaminophen 325 Mg Tab PO 650 mg Q4H PRN Administration Headache/Fever/Mild Pain (1-3) Hydrocodone Bitart/Acetaminophen 1 tab 02/12/20 02:36 02/14/20 15:36 Hydrocodone/Acetaminophen 5/325 Mg Tablet PO 1 tab Q6H PRN Administration Moderate to Severe Pain (6-10) Aspirin 81 mg 02/11/20 09:00 02/14/20 08:55 Aspirin 81 Mg Enteric Coated Tablet PO 81 mg DAILY [facility] Administration Bisacodyl 10 mg 02/10/20 12:26 02/11/20 20:58 Bisacodyl 5 Mg Tab PO 10 mg DAILYPRN PRN Administration Constipation Ciprofloxacin 500 mg 02/12/20 20:00 02/14/20 06:09 Ciprofloxacin 500 Mg Tab PO 500 mg 06,2000 [facility] Administration Iron/Minerals/Multivitamins 1 tab 02/11/20 09:00 02/14/20 08:55 Multivitamin W/ Minerals 1 Tab PO 1 tab DAILY [facility] Administration Melatonin 3 mg 02/12/20 00:16 02/13/20 20:35 Melatonin 3 Mg Tab PO 3 mg HS PRN Administration Insomnia Metoprolol Succinate 50 mg 02/11/20 09:00 02/14/20 08:55 Metoprolol Succinate Xl 25 Mg Tab PO 50 mg DAILY [facility] Administration Multivitamins/Zinc 1 tab 02/11/20 09:00 02/14/20 08:55 Stress 600 With Zinc 1 Tab PO 1 tab DAILY [facility] Administration Nitroglycerin 0.5 inch 02/10/20 14:00 02/14/20 14:20 Nitroglycerin 2% Ointment 1 Inch/1 Gm Packet TOP 0.5 inch Q8HR [facility] Administration Oxybutynin Chloride 20 mg 02/11/20 21:00 02/13/20 20:38 Oxybutynin 5 Mg Tab PO 20 mg HS [facility] Administration Senna/Docusate Sodium 2 tab 02/10/20 12:26 02/12/20 11:21 Senokot S 8.6-50 Mg Tab PO 2 tab BID PRN Administration Constipation Tramadol HCl 50 mg 02/12/20 12:02 02/13/20 18:41 Tramadol Hcl 50 Mg Tab PO 50 mg Q6H PRN Administration Mild-Moderate Pain (1-5) - Exam General Appearance: awake alert Eye: anicteric sclera ENT: moist mucosa Neck: supple Heart: RRR Respiratory: CTAB Gastrointestinal: soft, non-tender Skin - other findings: neurofibromas Psychiatric: normal affect, normal behavior Hosp A/P - Plan Assessment/plan: Anemia Seen to have EGD and colonoscopy tomorrow. Chest pain Resolved. Elevated troponin Most likely secondary to tachycardia. UTI Pt is on ciprofloxacin. History of palpitations Continue metoprolol
[2020-02-14] MEDS: Oxybutynin 5 MG TAB PO SCH (21:42)
[2020-02-15] MEDS: traMADol HCl 50 MG TAB PO PRN (00:13)
[2020-02-15 04:40] LABS: #Basophils 0.1 thou/uL (0.0-0.2); #Eosinphils 0.4 thou/uL (0.0-0.7); #Monocytes 1.5 thou/uL (0.11-0.59); %Basophils 0.6 % (0.0-1.0); %Eosinophils 3.8 % (0.0-10.0); %Lymphocytes 10.3 % (21.0-51.0); %Monocytes 14.7 % (0.0-10.0); %Neutrophils 70.6 % (42.0-75.0); Hemoglobin 9.3 g/dL (12.0-16.0); Mean Corpuscular HGB CONC 32.8 g/dL (32.0-36.0); Mean Corpuscular Hemoglobin 30.4 pg (27.0-31.0); Mean Corpuscular Volume 92.7 fL (78.0-98.0); Mean Platelet Volume 8.4 fL (7.4-10.4); Platelet Count 248 thou/uL (130-400); RBC Distribution Width 17.9 % (11.5-14.5); Red Blood Cell (RBC) Count 3.07 mill/uL (4.20-5.40); White Blood Cell (WBC) Count 9.9 thou/uL (4.8-10.8)
[2020-02-15 05:05] LABS: Anion Gap 13 mmol/L (10-20); BUN (Urea Nitrogen) 33 mg/dL (9.8-20.1); Calc. Creatinine Clearance 33 mL/min (70-130); Calcium 8.9 mg/dL (7.8-10.44); Carbon Dioxide 22 mmol/L (23-31); Chloride 109 mmol/L (98-107); Glucose 87 mg/dL (83-110); Potassium 4.3 mmol/L (3.5-5.1); Sodium 140 mmol/L (136-145)
[2020-02-15] MEDS: Nitroglycerin 2% Ointment 1 INCH/1 GM Packet TOP SCH ×3 (06:20→22:04)
[2020-02-15] MEDS: Ciprofloxacin 500 MG TAB PO SCH ×2 (06:21→22:02)
--- NOTE | 2020-02-15 09:57 | PDOC.CPN ---
- Subjective Date: 02/15/20 Time: 07:55 Interval history: No overnight events, patient doing well, she will have endoscopy today. He heat rhythm remains in sinus rhythm, her heart rate is in the 60's. - Review of Systems General: denies: fever/chills, weight/appetite/sleep changes, night sweats, fatigue Respiratory: denies: cough, congestion, shortness of breath, exercise intolerance Cardiovascular: denies: chest pain, palpitation, edema, paroxysmal nocturnal dyspnea, orthopnea Gastrointestinal: denies: nausea, vomiting, diarrhea, constipation, abd pain, GI bleeding Musculoskeletal: reports: pain (c/o bilateral leg pain). denies: tenderness, stiffness, swelling, arthritis/arthralgias Neurological: denies: numbness, syncope, seizure, weakness - Objective Allergies/Adverse Reactions: Allergies Allergy/AdvReac Type Severity Reaction Status Date / Time erythromycin lactobionate Allergy Intermediate Verified 06/03/19 12:55 [From Erythrocin] Visit Medications: Current Medications Acetaminophen (Acetaminophen 325 Mg Tab) 650 mg PO Q4H PRN PRN Reason: Headache/Fever/Mild Pain (1-3) Last Admin: 02/11/20 22:15 Dose: 650 mg Documented by: Hydrocodone Bitart/Acetaminophen (Hydrocodone/Acetaminophen 5/325 Mg Tablet) 1 tab PO Q6H PRN PRN Reason: Moderate to Severe Pain (6-10) Last Admin: 02/14/20 15:36 Dose: 1 tab Documented by: Aspirin (Aspirin 81 Mg Enteric Coated Tablet) 81 mg PO DAILY [facility] Last Admin: 02/14/20 08:55 Dose: 81 mg Documented by: Bisacodyl (Bisacodyl 5 Mg Tab) 10 mg PO DAILYPRN PRN PRN Reason: Constipation Last Admin: 02/11/20 20:58 Dose: 10 mg Documented by: Ciprofloxacin (Ciprofloxacin 500 Mg Tab) 500 mg PO 0600,1999 [facility] Last Admin: 02/15/20 06:21 Dose: 500 mg Documented by: Iron/Minerals/Multivitamins (Multivitamin W/ Minerals 1 Tab) 1 tab PO DAILY [facility] Last Admin: 02/14/20 08:55 Dose: 1 tab Documented by: Melatonin (Melatonin 3 Mg Tab) 3 mg PO HS PRN PRN Reason: Insomnia Last Admin: 02/13/20 20:35 Dose: 3 mg Documented by: Metoprolol Succinate (Metoprolol Succinate Xl 25 Mg Tab) 50 mg PO DAILY [facility] Last Admin: 02/15/20 08:29 Dose: 50 mg Documented by: Multivitamins/Zinc (Stress 600 With Zinc 1 Tab) 1 tab PO DAILY [facility] Last Admin: 02/14/20 08:55 Dose: 1 tab Documented by: Nitroglycerin (Nitroglycerin 2% Ointment 1 Inch/1 Gm Packet) 0.5 inch TOP Q8HR [facility] Last Admin: 02/15/20 06:20 Dose: 0.5 inch Documented by: Oxybutynin Chloride (Oxybutynin 5 Mg Tab) 20 mg PO HS [facility] Last Admin: 02/14/20 21:42 Dose: 20 mg Documented by: Senna/Docusate Sodium (Senokot S 8.6-50 Mg Tab) 2 tab PO BID PRN PRN Reason: Constipation Last Admin: 02/12/20 11:21 Dose: 2 tab Documented by: Sodium Chloride (Flush - Normal Saline 10 Ml Syringe) 10 ml IVF PRN PRN PRN Reason: Saline Flush Tramadol HCl (Tramadol Hcl 50 Mg Tab) 50 mg PO Q6H PRN PRN Reason: Mild-Moderate Pain (1-5) Last Admin: 02/15/20 00:13 Dose: 50 mg Documented by: Vital Signs & Weight: Vital Signs Temp Pulse Resp BP Pulse Ox 02/15/20 07:46 97.7 F 75 16 145/63 H 94 L 02/15/20 03:56 98.2 F 85 16 117/54 L 94 L 02/15/20 03:12 98 Weight 93 lb 8 oz - Physical Exam General: alert & oriented x3, appears well, no apparent distress HEENT: mucus membranes moist Neck: supple neck, no JVD/HJR, no masses Cardiac: regular rate (severe MR), systolic murmur Lungs: normal breath sounds, no wheeze, rales, rhonchi Neuro: grossly intact Abdomen: soft, non-tender Extremities: no cyanosis, no clubbing, no edema, 2+ Posterior Tibial, 2+ Dorsalis Pedus Skin: other (Neurofibromatosis all over body) Musculoskeletal: normal range of motion - Labs Result Diagrams: 02/15/20 04:15 02/15/20 04:15 Troponin/CKMB CK-MB (CK-2) 3.9 ng/mL (0-6.6) 02/10/20 10:31 Troponin I 0.384 ng/mL (< 0.028) H* 02/10/20 16:43 - EKG Interpretation EKG Method: Telemetry EKG: sinus rhythm - Assessment/Plan Assessment/Plan: 1. Elevation in cardiac enzymes. Hemoglobin still low. No need for urgent stress test. No further chest pain or ECG changes, will continue to monitor. She has no previous history of coronary artery disease, her ECHO 02/11/2020 showed EF 55-60%, severe mitral regurgitation, mild AV sclerosis and mild tricuspid regurgiation. Her heart rhythm has remained in NSR with EKG changes, if her GI work-up is negative, she can be dc'd from cardiac standpoint and follow-up as an outpatient for stress testing at a later date. 3. Severe mitral regurgitation: She may eventually need to undergo a mitral valve clip if she develops signs of congestive heart failure. Her EF is 55-60% and shows moderate left atrium dilation. She denies shortness of breath, dyspnea on exertion, orthopnea, lower extremity edema 4. Anemia: Patient Hemoglobin 9.3 this morning, plan for upper & lower endoscopies today. We will continue to monitor the patient and will plan for stress testing once her hemoglobin levels have increased and she remains stable. This could be done as an outpatient since she has remained stable unless she has something that may require general surgery after the endoscopoy is performed. She continues to deny any cardiac complaints upon this admission. If she has a negative GI work- up, she could be dc's from a cardiac standpoint and follow-up as an outpatient.
[2020-02-15] MEDS ORDERED: Fleet Enema 133 ML BOT FS SCH (11:15)
[2020-02-15] MEDS ORDERED: GoLYTELY 4,000 ml Bottle PO SCH (12:30)
--- NOTE | 2020-02-15 12:39 | PRG ---
DATE OF SERVICE: 02/15/2020 SUBJECTIVE: Ms. Farris took some of her bowel prep yesterday and had one small bowel movement with it yesterday. Rectal exam revealed still firm stool in the rectal vault, which was black and disimpacted a couple of firm stool balls. Her brother is with her, and she states that she is willing to retry a bowel prep and attempt for EGD and colonoscopy tomorrow. OBJECTIVE: VITAL SIGNS: Temperature is 97.7, pulse 75, blood pressure 145/63. GENERAL: She is no acute distress. LUNGS: Clear to auscultation bilaterally. HEART: Regular rate and rhythm. ABDOMEN: Soft, nontender, and nondistended. Bowel sounds are present. EXTREMITIES: No lower extremity edema. RECTAL EXAM: Revealed a couple of firm stool balls in the rectal vault and liquidy black stool. LABORATORY DATA: Hemoglobin is 9.3. IMPRESSION: 1. Anemia and prior reported hematochezia and dark stools. 2. She was unable to complete her bowel prep yesterday. RECOMMENDATIONS: 1. Restart a clear liquid diet. 2. Restart 4 L of GoLYTELY today, and we will, hopefully, be able to perform an upper and lower endoscopy tomorrow morning. Job ID: [id number]
[2020-02-15] MEDS: HYDROcodone/Acetaminophen 5/325 mg Tablet PO PRN (13:44)
[2020-02-15] MEDS: Multivitamin W/ Minerals 1 TAB PO SCH (13:45)
[2020-02-15] MEDS: Aspirin 81 mg Enteric Coated Tablet PO SCH (13:46)
[2020-02-15] MEDS: Stress 600 With Zinc 1 TAB PO SCH (13:46)
--- NOTE | 2020-02-15 16:13 | PDOC.HOSPP ---
- Subjective Encounter Date: 02/15/20 Encounter Time: 08:30 Subjective: Pt seen for followup re: anemia. No new complaints. - Objective Vital Signs & Weight: Vital Signs (12 hours) Temp Pulse Resp BP Pulse Ox 02/15/20 07:46 97.7 F 75 16 145/63 H 94 L Weight Weight 93 lb 8 oz I&O: 02/14/20 02/15/20 02/16/20 06:59 06:59 06:59 Intake Total 240 2720 Output Total 200 1150 Balance 40 1570 Result Diagrams: 02/15/20 04:15 02/15/20 04:15 Additional Labs: Reviewed labs and MAR Hospitalist ROS - Review of Systems Gastrointestinal: denies: nausea, vomiting, abdominal pain, diarrhea, constipation, melena, hematochezia Genitourinary: denies: dysuria, frequency, incontinence, hematuria, retention - Medication Medications: Active Medications Generic Name Dose Route Start Last Admin Trade Name Freq PRN Reason Stop Dose Admin Acetaminophen 650 mg 02/10/20 12:26 02/11/20 22:15 Acetaminophen 325 Mg Tab PO 650 mg Q4H PRN Administration Headache/Fever/Mild Pain (1-3) Hydrocodone Bitart/Acetaminophen 1 tab 02/12/20 02:36 02/15/20 13:44 Hydrocodone/Acetaminophen 5/325 Mg Tablet PO 1 tab Q6H PRN Administration Moderate to Severe Pain (6-10) Aspirin 81 mg 02/11/20 09:00 02/15/20 13:46 Aspirin 81 Mg Enteric Coated Tablet PO 81 mg DAILY [facility] Administration Bisacodyl 10 mg 02/10/20 12:26 02/11/20 20:58 Bisacodyl 5 Mg Tab PO 10 mg DAILYPRN PRN Administration Constipation Ciprofloxacin 500 mg 02/12/20 20:00 02/15/20 06:21 Ciprofloxacin 500 Mg Tab PO 500 mg 599,1999 [facility] Administration Iron/Minerals/Multivitamins 1 tab 02/11/20 09:00 02/15/20 13:45 Multivitamin W/ Minerals 1 Tab PO 1 tab DAILY [facility] Administration Melatonin 3 mg 02/12/20 00:16 02/13/20 20:35 Melatonin 3 Mg Tab PO 3 mg HS PRN Administration Insomnia Metoprolol Succinate 50 mg 02/11/20 09:00 02/15/20 08:29 Metoprolol Succinate Xl 25 Mg Tab PO 50 mg DAILY [facility] Administration Multivitamins/Zinc 1 tab 02/11/20 09:00 02/15/20 13:46 Stress 600 With Zinc 1 Tab PO 1 tab DAILY [facility] Administration Nitroglycerin 0.5 inch 02/10/20 14:00 02/15/20 13:46 Nitroglycerin 2% Ointment 1 Inch/1 Gm Packet TOP 0.5 inch Q8HR [facility] Administration Oxybutynin Chloride 20 mg 02/11/20 21:00 02/14/20 21:42 Oxybutynin 5 Mg Tab PO 20 mg HS [facility] Administration Polyethylene Glycol/Electrolytes 4,000 ml 02/15/20 12:30 02/15/20 13:47 Golytely 4,000 Ml Bottle PO 02/15/20 19:00 4,000 ml NOW [facility] Administration Senna/Docusate Sodium 2 tab 02/10/20 12:26 02/12/20 11:21 Senokot S 8.6-50 Mg Tab PO 2 tab BID PRN Administration Constipation Tramadol HCl 50 mg 02/12/20 12:02 02/15/20 00:13 Tramadol Hcl 50 Mg Tab PO 50 mg Q6H PRN Administration Mild-Moderate Pain (1-5) - Exam General Appearance: awake alert Eye: anicteric sclera ENT: moist mucosa Neck: supple Heart: RRR Respiratory: CTAB Gastrointestinal: soft Skin: no rashes Skin - other findings: neurofibromatosis Psychiatric: normal affect Hosp A/P - Plan Assessment/plan: Anemia EGD and colonoscopy tomorrow Chest pain Resolved. For stress test as outpt. Elevated troponin Most likely secondary to tachycardia. UTI Cointinue ciprofloxacin. History of palpitations Continue metoprolol
[2020-02-15 16:36] LABS: A/G Ratio 1.3 (0.7-1.7); Albumin 2.8 g/dL (2.9-4.4); Alpha 1 0.3 g/dL (0.0-0.4); Alpha 2 0.5 g/dL (0.4-1.0); Beta 0.7 g/dL (0.7-1.3); Gamma 0.6 g/dL (0.4-1.8); Globulin, Total 2.1 g/dL (2.2-3.9); M-Spike Not Observed g/dL (Not Observed)
[2020-02-15] MEDS: Oxybutynin 5 MG TAB PO SCH (22:04)
[2020-02-16] MEDS: Acetaminophen 325 MG TAB PO PRN (00:58)
[2020-02-16 05:03] LABS: Anion Gap 14 mmol/L (10-20); BUN (Urea Nitrogen) 33 mg/dL (9.8-20.1); Calc. Creatinine Clearance 33 mL/min (70-130); Calcium 8.9 mg/dL (7.8-10.44); Carbon Dioxide 22 mmol/L (23-31); Chloride 107 mmol/L (98-107); Glucose 107 mg/dL (83-110); Potassium 3.8 mmol/L (3.5-5.1); Sodium 139 mmol/L (136-145)
[2020-02-16] MEDS: Ciprofloxacin 500 MG TAB PO SCH ×2 (05:48→21:45)
[2020-02-16] MEDS: Nitroglycerin 2% Ointment 1 INCH/1 GM Packet TOP SCH ×3 (05:49→21:46)
[2020-02-16 06:08] LABS: Band 8 % (5-11); Hemoglobin 8.8 g/dL (12.0-16.0); Lymphocytes 5 % (21-51); MDiff Complete? YES; Mean Corpuscular HGB CONC 32.9 g/dL (32.0-36.0); Mean Corpuscular Volume 94.1 fL (78.0-98.0); Mean Platelet Volume 8.7 fL (7.4-10.4); Monocytes 12 % (0-10); Neutrophil 75 % (42-75); Platelet Count 238 thou/uL (130-400); RBC Distribution Width 17.4 % (11.5-14.5); Red Blood Cell (RBC) Count 2.83 mill/uL (4.20-5.40)
[2020-02-16] MEDS ORDERED: PROPOFOL 200 MG/20 ML VIAL ONE (09:39)
--- NOTE | 2020-02-16 14:36 | EKG ---
Test Reason : Blood Pressure : / mmHG Vent. Rate : 094 BPM Atrial Rate : 094 BPM P-R Int : 136 ms QRS Dur : 090 ms QT Int : 356 ms P-R-T Axes : 080 080 035 degrees QTc Int : 445 ms Normal sinus rhythm with sinus arrhythmia Possible Anterior infarct , age undetermined Abnormal ECG Confirmed by RODDY ECHAVARRIA M.D. ([id number]), purchase request editor ESTHER HONEYCUTT ([id number]) on 02/16/2020 2:35:55 PM Referred By: Confirmed By:RODDY ECHAVARRIA M.D.
[2020-02-16] MEDS: Multivitamin W/ Minerals 1 TAB PO SCH (15:17)
[2020-02-16] MEDS: Aspirin 81 mg Enteric Coated Tablet PO SCH (15:17)
[2020-02-16] MEDS: Stress 600 With Zinc 1 TAB PO SCH (15:17)
--- NOTE | 2020-02-16 15:50 | PDOC.HOSPP ---
- Subjective Subjective: pt has been refusing her bowel prep, which delayed her colonoscopy procedure. Hb trending down slightly - Objective Vital Signs & Weight: Vital Signs (12 hours) Temp Pulse Resp BP BP Pulse Ox 02/16/20 12:30 97.7 F 81 16 123/77 99 02/16/20 08:20 97.4 F L 82 18 132/62 97 02/16/20 04:00 98.7 F 90 14 160/80 H 97 Weight Weight 93 lb I&O: 02/15/20 02/16/20 02/17/20 06:59 06:59 06:59 Intake Total 2720 2960 Output Total 1150 700 Balance 1570 2260 Result Diagrams: 02/16/20 04:14 02/16/20 04:14 Radiology Reviewed by me: Yes EKG Reviewed by me: Yes Hospitalist ROS - Medication Medications: Active Medications Generic Name Dose Route Start Last Admin Trade Name Freq PRN Reason Stop Dose Admin Acetaminophen 650 mg 02/10/20 12:26 02/16/20 00:58 Acetaminophen 325 Mg Tab PO 650 mg Q4H PRN Administration Headache/Fever/Mild Pain (1-3) Hydrocodone Bitart/Acetaminophen 1 tab 02/12/20 02:36 02/15/20 13:44 Hydrocodone/Acetaminophen 5/325 Mg Tablet PO 1 tab Q6H PRN Administration Moderate to Severe Pain (6-10) Aspirin 81 mg 02/11/20 09:00 02/16/20 15:17 Aspirin 81 Mg Enteric Coated Tablet PO Not Given DAILY [facility] Bisacodyl 10 mg 02/10/20 12:26 02/11/20 20:58 Bisacodyl 5 Mg Tab PO 10 mg DAILYPRN PRN Administration Constipation Ciprofloxacin 500 mg 02/12/20 20:00 02/16/20 05:48 Ciprofloxacin 500 Mg Tab PO 500 mg 599,1999 [facility] Administration Iron/Minerals/Multivitamins 1 tab 02/11/20 09:00 02/16/20 15:17 Multivitamin W/ Minerals 1 Tab PO Not Given DAILY [facility] Melatonin 3 mg 02/12/20 00:16 02/13/20 20:35 Melatonin 3 Mg Tab PO 3 mg HS PRN Administration Insomnia Metoprolol Succinate 50 mg 02/11/20 09:00 02/16/20 08:23 Metoprolol Succinate Xl 25 Mg Tab PO 50 mg DAILY [facility] Administration Multivitamins/Zinc 1 tab 02/11/20 09:00 02/16/20 15:17 Stress 600 With Zinc 1 Tab PO Not Given DAILY [facility] Nitroglycerin 0.5 inch 02/10/20 14:00 02/16/20 15:31 Nitroglycerin 2% Ointment 1 Inch/1 Gm Packet TOP 0.5 inch Q8HR [facility] Administration Oxybutynin Chloride 20 mg 02/11/20 21:00 02/15/20 22:04 Oxybutynin 5 Mg Tab PO 20 mg HS [facility] Administration Senna/Docusate Sodium 2 tab 02/10/20 12:26 02/12/20 11:21 Senokot S 8.6-50 Mg Tab PO 2 tab BID PRN Administration Constipation Tramadol HCl 50 mg 02/12/20 12:02 02/15/20 00:13 Tramadol Hcl 50 Mg Tab PO 50 mg Q6H PRN Administration Mild-Moderate Pain (1-5) - Exam General Appearance: NAD Eye: PERRL ENT: normocephalic atraumatic Neck: supple Heart: RRR Respiratory: CTAB, no wheezes Gastrointestinal: soft Skin: normal turgor Neurological: cranial nerve grossly intact Musculoskeletal: normal tone Psychiatric: normal affect, normal behavior Hosp A/P - Plan Anemia of acute blood loss --GI plans for possible EGD/colonoscopy but pt has been refusing her bowel prep., which further delaying her procedures. --s/p 2U PRBC, follow CBC Chest pain Resolved. For stress test as outpt. per cardiology Elevated troponin Most likely secondary to tachycardia. UTI Cointinue ciprofloxacin. History of palpitations Continue metoprolol Hx of Neurofibromatosis
[2020-02-16] MEDS ORDERED: Ondansetron HCl/PF 4 MG/2 ML Vial IVP PRN (18:11)
--- NOTE | 2020-02-16 18:22 | OP ---
DATE OF PROCEDURE: 02/16/2020 PROCEDURES PERFORMED: Esophagogastroduodenoscopy with biopsy and colonoscopy. PREOPERATIVE DIAGNOSES: Anemia and gastrointestinal bleed. DESCRIPTION OF PROCEDURE: Informed consent was obtained from the patient. She was sedated with total intravenous anesthesia. The bite block was placed and the endoscope was advanced easily to the second portion of the duodenum and retroflexion was performed in the stomach. The esophagus was normal. The GE junction was unremarkable. There was atrophic appearing gastritis in the antrum and body. Biopsies were obtained from the antrum and body. Retroflexed views in the stomach were normal. The pylorus and first and second portions of the duodenum were normal. The patient was turned around. Rectal exam was performed and was normal. The colonoscope was advanced to the cecum, where the ileocecal valve and appendiceal orifice were clearly identified. The preparation quality was good. The colonic mucosa was normal throughout. Small to moderate internal hemorrhoids were noted on retroflexion. IMPRESSION: 1. Atrophic-appearing gastritis, antrum and body. Biopsies taken. 2. Otherwise normal esophagogastroduodenoscopy. 3. Normal colonoscopy. 4. Small to moderate internal hemorrhoids. RECOMMENDATIONS: 1. Await histopathology. 2. Advance diet. 3. I will sign off. Please call if GI can be of assistance. Job ID: [id number]
[2020-02-16] MEDS: HYDROcodone/Acetaminophen 5/325 mg Tablet PO PRN (18:53)
[2020-02-16] MEDS: Oxybutynin 5 MG TAB PO SCH (21:45)
[2020-02-17] MEDS: HYDROcodone/Acetaminophen 5/325 mg Tablet PO PRN ×2 (00:48→23:03)
[2020-02-17] MEDS: traMADol HCl 50 MG TAB PO PRN (03:50)
[2020-02-17 04:26] LABS: Anion Gap 15 mmol/L (10-20); BUN (Urea Nitrogen) 35 mg/dL (9.8-20.1); Calc. Creatinine Clearance 32 mL/min (70-130); Carbon Dioxide 21 mmol/L (23-31); Chloride 111 mmol/L (98-107); Glucose 94 mg/dL (83-110); Potassium 3.7 mmol/L (3.5-5.1); Sodium 143 mmol/L (136-145)
[2020-02-17 04:50] LABS: Band 4 % (5-11); Eosinophils 4 % (0-10); Hemoglobin 8.2 g/dL (12.0-16.0); Lymphocytes 1 % (21-51); MDiff Complete? YES; Mean Corpuscular HGB CONC 32.9 g/dL (32.0-36.0); Mean Corpuscular Hemoglobin 31.3 pg (27.0-31.0); Mean Corpuscular Volume 95.1 fL (78.0-98.0); Mean Platelet Volume 8.6 fL (7.4-10.4); Monocytes 17 % (0-10); Myelocyte 1 % (0-0); Neutrophil 72 % (42-75); Platelet Count 235 thou/uL (130-400); Red Blood Cell (RBC) Count 2.61 mill/uL (4.20-5.40); White Blood Cell (WBC) Count 10.1 thou/uL (4.8-10.8)
[2020-02-17] MEDS: Ciprofloxacin 500 MG TAB PO SCH ×2 (05:34→21:01)
[2020-02-17] MEDS: Nitroglycerin 2% Ointment 1 INCH/1 GM Packet TOP SCH ×3 (05:35→21:01)
[2020-02-17] MEDS: Stress 600 With Zinc 1 TAB PO SCH (09:28)
[2020-02-17] MEDS: Multivitamin W/ Minerals 1 TAB PO SCH (09:28)
[2020-02-17] MEDS: Aspirin 81 mg Enteric Coated Tablet PO SCH (09:28)
--- NOTE | 2020-02-17 16:43 | PDOC.HOSPP ---
- Subjective Subjective: Patient was seen and examined at bedside. Her hemoglobin has been trended down slowly. However, she underwent EGD and colonoscopy negative for source of bleeding. She still has some chest discomfort, likely due to anemia. She has been persistently request for inpatient stress test, cardiology was planning for outpatient - Objective Vital Signs & Weight: Vital Signs (12 hours) Temp Pulse Resp BP Pulse Ox 02/17/20 15:22 98.3 F 77 18 137/59 L 97 02/17/20 12:00 97.9 F 84 16 128/58 L 96 02/17/20 08:00 97.4 F L 82 17 126/60 95 Weight Weight 94 lb 9.6 oz I&O: 02/16/20 02/17/20 02/18/20 06:59 06:59 06:59 Intake Total 2960 2440 Output Total 700 Balance 2260 2440 Result Diagrams: 02/17/20 03:18 02/17/20 03:18 Hospitalist ROS - Medication Medications: Active Medications Generic Name Dose Route Start Last Admin Trade Name Freq PRN Reason Stop Dose Admin Acetaminophen 650 mg 02/10/20 12:26 02/16/20 00:58 Acetaminophen 325 Mg Tab PO 650 mg Q4H PRN Administration Headache/Fever/Mild Pain (1-3) Hydrocodone Bitart/Acetaminophen 1 tab 02/12/20 02:36 02/17/20 00:48 Hydrocodone/Acetaminophen 5/325 Mg Tablet PO 1 tab Q6H PRN Administration Moderate to Severe Pain (6-10) Aspirin 81 mg 02/11/20 09:00 02/17/20 09:28 Aspirin 81 Mg Enteric Coated Tablet PO 81 mg DAILY PHILLY Administration Bisacodyl 10 mg 02/10/20 12:26 02/11/20 20:58 Bisacodyl 5 Mg Tab PO 10 mg DAILYPRN PRN Administration Constipation Ciprofloxacin 500 mg 02/12/20 20:00 02/17/20 05:34 Ciprofloxacin 500 Mg Tab PO 500 mg PHILLY Administration Iron/Minerals/Multivitamins 1 tab 02/11/20 09:00 02/17/20 09:28 Multivitamin W/ Minerals 1 Tab PO 1 tab DAILY PHILLY Administration Melatonin 3 mg 02/12/20 00:16 02/13/20 20:35 Melatonin 3 Mg Tab PO 3 mg HS PRN Administration Insomnia Metoprolol Succinate 50 mg 02/11/20 09:00 02/17/20 09:28 Metoprolol Succinate Xl 25 Mg Tab PO 50 mg DAILY PHILLY Administration Multivitamins/Zinc 1 tab 02/11/20 09:00 02/17/20 09:28 Stress 600 With Zinc 1 Tab PO 1 tab DAILY PHILLY Administration Nitroglycerin 0.5 inch 02/10/20 14:00 02/17/20 14:16 Nitroglycerin 2% Ointment 1 Inch/1 Gm Packet TOP 0.5 inch Q8HR PHILLY Administration Oxybutynin Chloride 20 mg 02/11/20 21:00 02/16/20 21:45 Oxybutynin 5 Mg Tab PO 20 mg HS PHILLY Administration Senna/Docusate Sodium 2 tab 02/10/20 12:26 02/12/20 11:21 Senokot S 8.6-50 Mg Tab PO 2 tab BID PRN Administration Constipation Tramadol HCl 50 mg 02/12/20 12:02 02/17/20 03:50 Tramadol Hcl 50 Mg Tab PO 50 mg Q6H PRN Administration Mild-Moderate Pain (1-5) - Exam General Appearance: NAD Eye: PERRL ENT: normocephalic atraumatic Neck: supple Heart: RRR Respiratory: CTAB, no wheezes Gastrointestinal: soft, non-tender Extremities: no cyanosis Skin: normal turgor Neurological: cranial nerve grossly intact Musculoskeletal: normal tone Psychiatric: normal affect, normal behavior, A&O x 3 Hosp A/P - Plan Chest pain --still has some chest discomfort, likely d/t symptomatic anemia --initially cardiology plans for outpatient stress, but pt has been insisted to have it done here, will see if we can request to have it done tomorrow Anemia of acute blood loss --s/p EGD/colonoscopy no significant source of bleeding, gastritis --s/p 2U PRBC, Hb trending down. follow CBC in AM --cont PPI Elevated troponin Most likely secondary to tachycardia. UTI Cointinue ciprofloxacin. History of palpitations Continue metoprolol Hx of Neurofibromatosis
[2020-02-17] MEDS: Oxybutynin 5 MG TAB PO SCH (21:01)
[2020-02-18] MEDS: Ciprofloxacin 500 MG TAB PO SCH ×2 (05:09→21:10)
[2020-02-18] MEDS: Nitroglycerin 2% Ointment 1 INCH/1 GM Packet TOP SCH ×3 (05:51→21:11)
[2020-02-18 06:10] LABS: Band 14 % (5-11); Eosinophils 1 % (0-10); Hemoglobin 7.9 g/dL (12.0-16.0); Lymphocytes 16 % (21-51); MDiff Complete? YES; Mean Corpuscular HGB CONC 32.3 g/dL (32.0-36.0); Mean Corpuscular Hemoglobin 30.9 pg (27.0-31.0); Mean Corpuscular Volume 95.8 fL (78.0-98.0); Monocytes 9 % (0-10); Neutrophil 59 % (42-75); Platelet Count 246 thou/uL (130-400); RBC Distribution Width 16.8 % (11.5-14.5); Red Blood Cell (RBC) Count 2.56 mill/uL (4.20-5.40); White Blood Cell (WBC) Count 8.9 thou/uL (4.8-10.8)
[2020-02-18] MEDS: Multivitamin W/ Minerals 1 TAB PO SCH (09:59)
[2020-02-18] MEDS: Aspirin 81 mg Enteric Coated Tablet PO SCH (09:59)
[2020-02-18] MEDS: Stress 600 With Zinc 1 TAB PO SCH (09:59)
[2020-02-18] MEDS ORDERED: Iron, Sodium Ferric Gluconate 250 MG in Sodium Chloride 0.9% 100 ML IVPB SCH (17:30)
--- NOTE | 2020-02-18 17:30 | PDOC.HOSPP ---
- Subjective Subjective: pt was seen and Examined at bedside. Her hemoglobin continue to trend down, however there is no not active bleeding. Discussed with GI, apparently she had a SPEP done, free kappa light chains elevated. She has been complaining of generalized bone pain. Her renal function remained stable. Her calcium is normal. I also updated pt's brother on the phone. - Objective Vital Signs & Weight: Vital Signs (12 hours) Temp Pulse Resp BP Pulse Ox 02/18/20 15:50 98.4 F 70 18 115/56 L 95 02/18/20 12:00 98.1 F 72 16 122/58 L 96 02/18/20 08:00 97.2 F L 86 17 140/65 97 Weight Weight 92 lb 3.2 oz I&O: 02/17/20 02/18/20 02/19/20 06:59 06:59 06:59 Intake Total 2440 480 Balance 2440 480 Result Diagrams: 02/18/20 03:18 02/17/20 03:18 Radiology Reviewed by me: Yes EKG Reviewed by me: Yes Hospitalist ROS - Medication Medications: Active Medications Generic Name Dose Route Start Last Admin Trade Name Freq PRN Reason Stop Dose Admin Acetaminophen 650 mg 02/10/20 12:26 02/16/20 00:58 Acetaminophen 325 Mg Tab PO 650 mg Q4H PRN Administration Headache/Fever/Mild Pain (1-3) Hydrocodone Bitart/Acetaminophen 1 tab 02/12/20 02:36 02/17/20 23:03 Hydrocodone/Acetaminophen 5/325 Mg Tablet PO 1 tab Q6H PRN Administration Moderate to Severe Pain (6-10) Aspirin 81 mg 02/11/20 09:00 02/18/20 09:59 Aspirin 81 Mg Enteric Coated Tablet PO 81 mg DAILY PHILLY Administration Bisacodyl 10 mg 02/10/20 12:26 02/11/20 20:58 Bisacodyl 5 Mg Tab PO 10 mg DAILYPRN PRN Administration Constipation Ciprofloxacin 500 mg 02/12/20 20:00 02/18/20 05:09 Ciprofloxacin 500 Mg Tab PO 500 mg 599,1999 PHILLY Administration Iron/Minerals/Multivitamins 1 tab 02/11/20 09:00 02/18/20 09:59 Multivitamin W/ Minerals 1 Tab PO 1 tab DAILY PHILLY Administration Melatonin 3 mg 02/12/20 00:16 02/13/20 20:35 Melatonin 3 Mg Tab PO 3 mg HS PRN Administration Insomnia Metoprolol Succinate 50 mg 02/11/20 09:00 02/18/20 09:59 Metoprolol Succinate Xl 25 Mg Tab PO 50 mg DAILY PHILLY Administration Multivitamins/Zinc 1 tab 02/11/20 09:00 02/18/20 09:59 Stress 600 With Zinc 1 Tab PO 1 tab DAILY PHILLY Administration Nitroglycerin 0.5 inch 02/10/20 14:00 02/18/20 15:21 Nitroglycerin 2% Ointment 1 Inch/1 Gm Packet TOP 0.5 inch Q8HR PHILLY Administration Oxybutynin Chloride 20 mg 02/11/20 21:00 02/17/20 21:01 Oxybutynin 5 Mg Tab PO 20 mg HS PHILLY Administration Pantoprazole Sodium 40 mg 02/18/20 09:00 02/18/20 09:59 Pantoprazole 40 Mg Tab PO 40 mg DAILY PHILLY Administration Senna/Docusate Sodium 2 tab 02/10/20 12:26 02/12/20 11:21 Senokot S 8.6-50 Mg Tab PO 2 tab BID PRN Administration Constipation Tramadol HCl 50 mg 02/12/20 12:02 02/17/20 03:50 Tramadol Hcl 50 Mg Tab PO 50 mg Q6H PRN Administration Mild-Moderate Pain (1-5) - Exam General Appearance: NAD Eye: PERRL ENT: normocephalic atraumatic Neck: supple Heart: RRR Respiratory: CTAB Gastrointestinal: soft Extremities: no cyanosis Skin: normal turgor Neurological: cranial nerve grossly intact, normal sensation to touch Hosp A/P - Plan Monoclonal Gammopathy --check UPEP, bone scan --Heme/Onc consult to r/o MM Macrocytic Anemia --s/p EGD/colonoscopy no significant source of bleeding, gastritis --s/p 2U PRBC, Hb trending down. Likely d/t Monoclonal gammopathy Chest pain --still has some chest discomfort, likely d/t symptomatic anemia --stress test at outpatient Elevated troponin Most likely secondary to tachycardia. UTI Cointinue ciprofloxacin. History of palpitations Continue metoprolol Hx of Neurofibromatosis
[2020-02-18] MEDS: HYDROcodone/Acetaminophen 5/325 mg Tablet PO PRN (17:57)
[2020-02-18] MEDS: Oxybutynin 5 MG TAB PO SCH (21:10)
--- NOTE | 2020-02-19 00:38 | CON ---
DATE OF CONSULTATION: REASON FOR CONSULT: [place] light chain abnormality. HISTORY OF PRESENT ILLNESS: Ms. Farris is a pleasant 84-year-old female, who is hard of hearing and a past medical history of neurofibromatosis, osteoporosis, and chronic kidney disease, who presented to the emergency room with new onset of chest pain. Her hemoglobin was 8.3 on arrival and dropped to 7.2. She had elevated reticulocyte count of 4.2. Her ferritin was low and her TIBC was normal. She did undergo a GI workup, all of which was unremarkable. She had a serum protein electrophoresis which was normal. However, her immunofixation showed an elevated free kappa light chain with a free kappa lambda ratio of 1.77. We were asked to see the patient regarding possible light chain myeloma. The patient denies any bone pain. No chest pain or shortness of breath. No numbness, weakness, or lightheadedness. PAST MEDICAL HISTORY: 1. Neurofibromatosis. 2. Palpitations. 3. Osteoporosis. 4. Pancreatitis. 5. Chronic kidney disease. PAST SURGICAL HISTORY: Include; 1. Cholecystectomy. 2. Cataract removal. 3. Thyroidectomy. ALLERGIES: TO ERYTHROMYCIN. CURRENT MEDICATIONS: 1. Gonzales. 2. Ecotrin. 3. Dulcolax. 4. Cipro. 5. Theragran. 6. Melatonin. 7. Toprol-XL. 8. Nitroglycerin patch. 9. Ditropan. 10. Protonix. 11. Senokot. 12. Ultram. FAMILY HISTORY: No history of myeloma. SOCIAL HISTORY: Single, apparently lives alone. No alcohol, tobacco, or illicit drug use. REVIEW OF SYSTEMS: A 12-point review of systems is negative except for noted in HPI. PHYSICAL EXAMINATION: VITAL SIGNS: Temperature is 98.4, pulse is 70, respiratory rate 18, BP is 115/56. She is 95% on room air. GENERAL: A well-developed, well-nourished female, in no acute distress. HEENT: Normocephalic, atraumatic. Pupils are equal and reactive to light. She is extremely hard of hearing with hearing aids in place. NECK: Supple. CV: Regular rate and rhythm. LUNGS: Clear anterior. ABDOMEN: Soft. EXTREMITIES: No clubbing or cyanosis. SKIN: She has neurofibromatosis lesions. NEUROLOGICAL: Nonfocal. PERTINENT LABORATORY DATA AND X-RAYS: WBCs are 9.6, hemoglobin 9.2, hematocrit 27.1, platelet count is 206,000, 73% neutrophils, 10% lymphocytes. PT is 13.1, INR is 1.0. Sodium 143, potassium 3.7, chloride 111, CO2 is 21, BUN is 35, creatinine 0.9, calcium 9. Iron studies shows a low ferritin at 23. Bilirubin 0.3, AST 19, ALT 13, alkaline phosphatase 47. Troponin 0.423. Serum total protein 5.8, albumin 3.5, globulin 2.3. Folate and B12 were normal. Serum protein electrophoresis normal. She has 4+ bacteria and been treated. COVID PCR negative. ASSESSMENT: 1. Macrocytic anemia. 2. Elevated kappa lambda light chain ratio. DISCUSSION: Review of patient's labs shows no history of anemia until last month. She denies any bleeding. She is low on her ferritin and would likely benefit from a dose of IV iron and we will order this. My concern is her elevated kappa free light chain ratio. This could certainly point to a multiple myeloma. I discussed this with her and her brother, Adam, and they agree to a bone marrow biopsy tomorrow. We will consider a skeletal survey as well to rule out any type of bony lesions and follow her CBC. Case has been discussed with Dr. Peralta. Thank you for the consult. Job ID: [id number] [facility]IT[facility]rista
[2020-02-19] MEDS: HYDROcodone/Acetaminophen 5/325 mg Tablet PO PRN (02:28)
[2020-02-19] MEDS: Melatonin 3 MG TAB PO PRN ×2 (02:28→21:23)
[2020-02-19 04:41] LABS: INR-International Normal Ratio 1.1; Prothrombin Time 14.3 sec (12.0-14.7)
[2020-02-19 04:42] LABS: PTT 47.7 sec (22.9-36.1)
[2020-02-19 05:26] LABS: Band 3 % (5-11); Eosinophils 8 % (0-10); Hemoglobin 8.3 g/dL (12.0-16.0); Lymphocytes 13 % (21-51); MDiff Complete? YES; Mean Corpuscular HGB CONC 32.3 g/dL (32.0-36.0); Mean Corpuscular Volume 96.1 fL (78.0-98.0); Mean Platelet Volume 8.8 fL (7.4-10.4); Monocytes 10 % (0-10); Neutrophil 66 % (42-75); Platelet Count 248 thou/uL (130-400); RBC Distribution Width 16.2 % (11.5-14.5); Red Blood Cell (RBC) Count 2.68 mill/uL (4.20-5.40); White Blood Cell (WBC) Count 7.5 thou/uL (4.8-10.8)
[2020-02-19] MEDS: Ciprofloxacin 500 MG TAB PO SCH ×2 (05:32→21:22)
[2020-02-19] MEDS: Nitroglycerin 2% Ointment 1 INCH/1 GM Packet TOP SCH (05:33)
--- NOTE | 2020-02-19 09:28 | RAD ---
ADULT BONE SURVEY: A total of 23 images obtained. HISTORY: Possible multiple myeloma. The technologist notes that the exam is particularly difficult due to noncompliant patient. FINDINGS: Cervical spine shows degenerative changes without focal lytic process or compression. Thoracic spine demonstrates that the thoracic vertebrae maintain height and alignment with no lytic o r blastic process. No compression. Lumbar spine reveals the lumbar vertebrae to maintain normal height. There is an anterolisthesis at L3-4. No lytic or blastic process. No compression. Calvarium imaged with AP and lateral views. No focal lytic lesion seen. AP pelvis is obtained. The iliac wings are obscured by bowel content. No focal lytic or blastic pro cess. Hips show mild symmetric degenerative change. Femoral head contours are maintained. Bilateral humerus: Both right and left humerus appear unremarkable with no lytic process. Bilateral forearms: Visualized radius and ulna appear unremarkable bilaterally. Bilateral femurs show no lytic lesions. NO fracture or blastic process. Bilateral tibia and fibula show no focal lytic lesions. IMPRESSION: No evidence of multiple myeloma seen on adult bone survey. POS: AGW
[2020-02-19] MEDS: Stress 600 With Zinc 1 TAB PO SCH (10:29)
[2020-02-19] MEDS: Multivitamin W/ Minerals 1 TAB PO SCH (10:29)
[2020-02-19] MEDS ORDERED: Ondansetron PF 4 MG/2 ML Vial IVP PRN (11:15)
[2020-02-19] MEDS ORDERED: Scopolamine 1.5 mg/72 hour Patch TD SCH (11:15)
[2020-02-19] MEDS: Morphine 4 MG/ML VIAL SLOW IVP PRN (11:34)
[2020-02-19] MEDS ORDERED: Sodium Bicarbonate 2.5 MEQ/5 ML VIAL ONE (13:02)
[2020-02-19 14:06] VITALS: BMI 18.1
--- NOTE | 2020-02-19 14:39 | PDOC.MOPN ---
Interval History: tolerated bone marrow biopsy well. No complaints. - Vital Signs Vital Signs: Vital Signs (12 hours) Temp Pulse Resp BP BP Pulse Ox 02/19/20 11:17 97.0 F L 85 16 154/67 H 97 02/19/20 08:00 97.2 F L 77 17 132/61 96 02/19/20 04:00 97.9 F 75 15 123/60 95 Weight Admit Weight 92 lb 3.2 oz Weight 90 lb - Physical Exam General: Alert HEENT: Atraumatic Lungs: Clear to auscultation Cardiovascular: Regular rate Abdomen: Normal bowel sounds Neurological: Normal speech Psych/Mental Status: Mental status NL - Labs Result Diagrams: 02/19/20 04:02 02/17/20 03:18 Lab results: Laboratory Results - last 24 hr 02/19/20 04:02: PT 14.3, INR 1.1, APTT 47.7 H 02/19/20 04:02: WBC 7.5, RBC 2.68 L, Hgb 8.3 L, Hct 25.7 L, MCV 96.1, MCH 31.0, MCHC 32.3, RDW 16.2 H, Plt Count 248, MPV 8.8, Neutrophils % (Manual) 66, Band Neuts % (Manual) 3 L, Lymphocytes % (Manual) 13 L, Monocytes % (Manual) 10, Eosinophils % (Manual) 8 Status: lab reviewed by me A/P - Problem (1) Chronic anemia Current Visit: No Code(s): D64.9 - ANEMIA, UNSPECIFIED Status: Chronic (2) Light chain disease, kappa type Current Visit: Yes Code(s): D89.89 - OTH DISRD INVOLVING THE IMMUNE MECHANISM, NEC Status: Acute - Plan Plan: Await results of bone marrow biopsy no evidence of lytic lesions on skeletal survey IV iron given Discussed with brother
--- NOTE | 2020-02-19 15:20 | CT ---
CT-guided bone marrow biopsy and aspiration: DATE: 02/19/2020 HISTORY: 84-year-old female with kappa light chain monoclonal gammopathy and anemia. TECHNIQUE: Signed informed consent obtained. Patient placed prone on CT table. Skin of lower back prepared and d raped in usual sterile fashion. 25-gauge needle used to apply buffered lidocaine superficially, then at the periosteum of the left PSIS. 11-gauge Arrow OnControl bone marrow biopsy needle with troc ar advanced with distal tip slightly deep to the posterior cortical surface of the PSIS. Trocar removed. Marrow aspiration performed with 2 syringes, 3 mL in first syringe and 6 mL in second syring e, both of which were given to microbiology lab technician from laboratory. Next, the electric power concrete mixing truck driver was connected to the biopsy needle. The entire power concrete mixing truck driver and 11-gauge needle set was advanced and retr acted, yielding a bone marrow core tissue sample, which was also given to the director geophysical laboratory. Compression was held at the puncture site until hemostasis achieved. Patient tolerated pr ocedure well. No complications. IMPRESSION: Successful CT-guided bone marrow biopsy and aspiration.
--- NOTE | 2020-02-19 15:23 | CT ---
CT-guided bone marrow biopsy and aspiration: DATE: 02/19/2020 HISTORY: 84-year-old female with kappa light chain monoclonal gammopathy and anemia. TECHNIQUE: Signed informed consent obtained. Patient placed prone on CT table. Skin of lower back prepared and d raped in usual sterile fashion. 25-gauge needle used to apply buffered lidocaine superficially, then at the periosteum of the left PSIS. 11-gauge Arrow OnControl bone marrow biopsy needle with troc ar advanced with distal tip slightly deep to the posterior cortical surface of the PSIS. Trocar removed. Marrow aspiration performed with 2 syringes, 3 mL in first syringe and 6 mL in second syring e, both of which were given to construction equipment technician from laboratory. Next, the electric power hyster driver was connected to the biopsy needle. The entire power hyster driver and 11-gauge needle set was advanced and retr acted, yielding a bone marrow core tissue sample, which was also given to the energy systems laboratory director. Compression was held at the puncture site until hemostasis achieved. Patient tolerated pr ocedure well. No complications. IMPRESSION: Successful CT-guided bone marrow biopsy and aspiration. Transcribed Date/Time: 02/19/2020 3:22 PM
--- NOTE | 2020-02-19 17:23 | PDOC.HOSPP ---
- Subjective Subjective: no new event overnight. Bone scan neg for lytic lesion. d/w oncology team. - Objective Vital Signs & Weight: Vital Signs (12 hours) Temp Pulse Resp BP Pulse Ox 02/19/20 15:49 97.2 F L 91 16 121/83 97 02/19/20 14:15 96.9 F L 69 18 139/64 95 02/19/20 11:17 97.0 F L 85 16 154/67 H 97 02/19/20 08:00 97.2 F L 77 17 132/61 96 Weight Admit Weight 92 lb 3.2 oz Weight 90 lb I&O: 02/18/20 02/19/20 02/20/20 06:59 06:59 06:59 Intake Total 480 720 480 Balance 480 720 480 Result Diagrams: 02/19/20 04:02 02/17/20 03:18 Radiology Reviewed by me: Yes EKG Reviewed by me: Yes Hospitalist ROS - Medication Medications: Active Medications Generic Name Dose Route Start Last Admin Trade Name Freq PRN Reason Stop Dose Admin Acetaminophen 650 mg 02/10/20 12:26 02/16/20 00:58 Acetaminophen 325 Mg Tab PO 650 mg Q4H PRN Administration Headache/Fever/Mild Pain (1-3) Hydrocodone Bitart/Acetaminophen 1 tab 02/12/20 02:36 02/19/20 02:28 Hydrocodone/Acetaminophen 5/325 Mg Tablet PO 1 tab Q6H PRN Administration Moderate to Severe Pain (6-10) Aspirin 81 mg 02/11/20 09:00 02/18/20 09:59 Aspirin 81 Mg Enteric Coated Tablet PO 81 mg DAILY PHILLY Administration Bisacodyl 10 mg 02/10/20 12:26 02/11/20 20:58 Bisacodyl 5 Mg Tab PO 10 mg DAILYPRN PRN Administration Constipation Ciprofloxacin 500 mg 02/12/20 20:00 02/19/20 05:32 Ciprofloxacin 500 Mg Tab PO 500 mg 06,1999 PHILLY Administration Iron/Minerals/Multivitamins 1 tab 02/11/20 09:00 02/19/20 10:29 Multivitamin W/ Minerals 1 Tab PO 1 tab DAILY PHILLY Administration Melatonin 3 mg 02/12/20 00:16 02/19/20 02:28 Melatonin 3 Mg Tab PO 3 mg HS PRN Administration Insomnia Metoprolol Succinate 50 mg 02/11/20 09:00 02/19/20 10:29 Metoprolol Succinate Xl 25 Mg Tab PO 50 mg DAILY PHILLY Administration Morphine Sulfate 2 mg 02/19/20 11:16 02/19/20 11:34 Morphine 4 Mg/Ml Vial SLOW IVP 2 mg Q4H PRN Administration Moderate to Severe Pain (6-10) Multivitamins/Zinc 1 tab 02/11/20 09:00 02/19/20 10:29 Stress 600 With Zinc 1 Tab PO 1 tab DAILY PHILLY Administration Ondansetron HCl 4 mg 02/19/20 11:15 02/19/20 11:35 Ondansetron Pf 4 Mg/2 Ml Vial IVP 4 mg Q6H PRN Administration Nausea/Vomiting Oxybutynin Chloride 20 mg 02/11/20 21:00 02/18/20 21:10 Oxybutynin 5 Mg Tab PO 20 mg HS PHILLY Administration Pantoprazole Sodium 40 mg 02/18/20 09:00 02/19/20 10:29 Pantoprazole 40 Mg Tab PO 40 mg DAILY PHILLY Administration Scopolamine 1.5 mg 02/19/20 11:15 02/19/20 11:37 Scopolamine 1.5 Mg/72 Hour Patch TD 1.5 mg Q3D PHILLY Administration Senna/Docusate Sodium 2 tab 02/10/20 12:26 02/12/20 11:21 Senokot S 8.6-50 Mg Tab PO 2 tab BID PRN Administration Constipation Tramadol HCl 50 mg 02/12/20 12:02 02/17/20 03:50 Tramadol Hcl 50 Mg Tab PO 50 mg Q6H PRN Administration Mild-Moderate Pain (1-5) - Exam General Appearance: NAD Eye: PERRL ENT: normocephalic atraumatic Neck: supple Heart: RRR Respiratory: CTAB, no wheezes Gastrointestinal: soft Extremities: no cyanosis, no clubbing Skin: normal turgor Neurological: cranial nerve grossly intact Musculoskeletal: normal tone Psychiatric: normal affect, A&O x 3 Hosp A/P - Plan Monoclonal Gammopathy --bone scan neg for lytic lesion --s/p BMx - path pending. --updated family members. Macrocytic Anemia --s/p EGD/colonoscopy no significant source of bleeding, gastritis --s/p 2U PRBC, Hb trending down. Likely d/t Monoclonal gammopathy Chest pain --still has some chest discomfort, likely d/t symptomatic anemia --stress test at outpatient Elevated troponin Most likely secondary to tachycardia. UTI Cointinue ciprofloxacin. History of palpitations Metoprolol was increased to 50 mg daily for BP control Hx of Neurofibromatosis
[2020-02-19] MEDS: Acetaminophen 325 MG TAB PO PRN (21:22)
[2020-02-19] MEDS: Oxybutynin 5 MG TAB PO SCH (21:22)
[2020-02-19] MEDS: Senokot S 8.6-50 MG TAB PO PRN (21:23)
[2020-02-20] MEDS: HYDROcodone/Acetaminophen 5/325 mg Tablet PO PRN (04:18)
[2020-02-20] MEDS: Ciprofloxacin 500 MG TAB PO SCH (06:04)
[2020-02-20] MEDS: Multivitamin W/ Minerals 1 TAB PO SCH (09:00)
[2020-02-20] MEDS: Stress 600 With Zinc 1 TAB PO SCH (09:00)
[2020-02-20] MEDS: Acetaminophen 325 MG TAB PO PRN (09:05)
--- NOTE | 2020-02-20 09:25 | PDOC.CPN ---
- Subjective Date: 02/20/20 Time: 09:04 Interval history: No overnight events, she remains in sinus rhythm HR 70's. She denies any chest discomfort or shortness of breath. She is waiting on bone marrow biopsy results. - Review of Systems General: denies: fever/chills, weight/appetite/sleep changes, night sweats, fatigue Respiratory: denies: cough, congestion, shortness of breath, exercise intolerance Cardiovascular: denies: chest pain, palpitation, edema, paroxysmal nocturnal dyspnea, orthopnea Gastrointestinal: denies: nausea, vomiting, diarrhea, constipation, abd pain, GI bleeding Musculoskeletal: denies: pain, tenderness, stiffness, swelling, ar thritis/arthralgias Neurological: denies: numbness, syncope, seizure, weakness - Objective Allergies/Adverse Reactions: Allergies Allergy/AdvReac Type Severity Reaction Status Date / Time erythromycin lactobionate Allergy Intermediate Verified 06/03/19 12:55 [From Erythrocin] Visit Medications: Current Medications Acetaminophen (Acetaminophen 325 Mg Tab) 650 mg PO Q4H PRN PRN Reason: Headache/Fever/Mild Pain (1-3) Last Admin: 02/20/20 09:05 Dose: 650 mg Documented by: Hydrocodone Bitart/Acetaminophen (Hydrocodone/Acetaminophen 5/325 Mg Tablet) 1 tab PO Q6H PRN PRN Reason: Moderate to Severe Pain (6-10) Last Admin: 02/20/20 04:18 Dose: 1 tab Documented by: Aspirin (Aspirin 81 Mg Enteric Coated Tablet) 81 mg PO DAILY [facility] Last Admin: 02/18/20 09:59 Dose: 81 mg Documented by: Bisacodyl (Bisacodyl 5 Mg Tab) 10 mg PO DAILYPRN PRN PRN Reason: Constipation Last Admin: 02/11/20 20:58 Dose: 10 mg Documented by: Ciprofloxacin (Ciprofloxacin 500 Mg Tab) 500 mg PO 0600,1999 [facility] Last Admin: 02/20/20 06:04 Dose: 500 mg Documented by: Iron/Minerals/Multivitamins (Multivitamin W/ Minerals 1 Tab) 1 tab PO DAILY [facility] Last Admin: 02/20/20 09:00 Dose: 1 tab Documented by: Melatonin (Melatonin 3 Mg Tab) 3 mg PO HS PRN PRN Reason: Insomnia Last Admin: 02/19/20 21:23 Dose: 3 mg Documented by: Metoprolol Succinate (Metoprolol Succinate Xl 25 Mg Tab) 50 mg PO DAILY [facility] Last Admin: 02/20/20 09:00 Dose: 50 mg Documented by: Morphine Sulfate (Morphine 4 Mg/Ml Vial) 2 mg SLOW IVP Q4H PRN PRN Reason: Moderate to Severe Pain (6-10) Last Admin: 02/19/20 11:34 Dose: 2 mg Documented by: Multivitamins/Zinc (Stress 600 With Zinc 1 Tab) 1 tab PO DAILY [facility] Last Admin: 02/20/20 09:00 Dose: 1 tab Documented by: Ondansetron HCl (Ondansetron Pf 4 Mg/2 Ml Vial) 4 mg IVP Q6H PRN PRN Reason: Nausea/Vomiting Last Admin: 02/19/20 11:35 Dose: 4 mg Documented by: Oxybutynin Chloride (Oxybutynin 5 Mg Tab) 20 mg PO [facility] Last Admin: 02/19/20 21:22 Dose: 20 mg Documented by: Pantoprazole Sodium (Pantoprazole 40 Mg Tab) 40 mg PO DAILY [facility] Last Admin: 02/20/20 09:00 Dose: 40 mg Documented by: Scopolamine (Scopolamine 1.5 Mg/72 Hour Patch) 1.5 mg TD Q3D [facility] Last Admin: 02/19/20 11:37 Dose: 1.5 mg Documented by: Senna/Docusate Sodium (Senokot S 8.6-50 Mg Tab) 2 tab PO BID PRN PRN Reason: Constipation Last Admin: 02/19/20 21:23 Dose: 2 tab Documented by: Sodium Chloride (Flush - Normal Saline 10 Ml Syringe) 10 ml IVF PRN PRN PRN Reason: Saline Flush Tramadol HCl (Tramadol Hcl 50 Mg Tab) 50 mg PO Q6H PRN PRN Reason: Mild-Moderate Pain (1-5) Last Admin: 02/17/20 03:50 Dose: 50 mg Documented by: Vital Signs & Weight: Vital Signs Temp Pulse Resp BP Pulse Ox 02/20/20 03:37 97.7 F 82 21 H 130/58 L 91 L 02/20/20 00:00 97 16 Admit Weight 92 lb 3.2 oz Weight 91 lb 3.2 oz - Physical Exam General: alert & oriented x3 HEENT: mucus membranes moist Neck: supple neck, no JVD/HJR, no bruit Cardiac: regular rate and rhythm, regular rate, systolic murmur Lungs: clear to auscultation, normal breath sounds, no wheeze, rales, rhonchi Neuro: grossly intact Abdomen: active bowel sounds, soft, non-tender Extremities: no cyanosis, no clubbing, no edema Skin: clear (neurofibromatosis) Musculoskeletal: normal range of motion - Labs Result Diagrams: 02/19/20 04:02 02/17/20 03:18 Troponin/CKMB CK-MB (CK-2) 3.9 ng/mL (0-6.6) 02/10/20 10:31 Troponin I 0.384 ng/mL (< 0.028) H* 02/10/20 16:43 - EKG Interpretation EKG Method: Telemetry EKG: sinus rhythm (HR 70's) - Assessment/Plan Assessment/Plan: 1. Elevation in cardiac enzymes. Hemoglobin remains low at 8.3 this A.M. No need for urgent stress test at this time. No further chest pain or ECG changes, will continue to monitor. She has no previous history of coronary artery disease, her ECHO 02/11/2020 showed EF 55-60%, severe mitral regurgitation, mild AV sclerosis and mild tricuspid regurgiation. Her heart rhythm has remained in NSR with no EKG changes, her GI work-up was negative, she can be dc'd from cardiac standpoint and follow-up as an outpatient for stress testing at a later date. 3. Severe mitral regurgitation: She may eventually need to undergo a mitral valve clip if she develops signs of congestive heart failure. Her EF is 55-60% and shows moderate left atrium dilation. She denies chest pain, shortness of breath, dyspnea on exertion, orthopnea, lower extremity edema at this time. 4. Macrocytic Anemia: Patient Hemoglobin 8.3 this morning, her GI workup was negative, she is awaiting bone marrow biopsy results d/t Antigo type light chain reaction. At this time, we will sign off from from a cardiac standpoint. She will need to follow-up with cardiology 2-4 weeks after discharge from hospital. We can complete a stress test as an outpatient once she becomes more stable.
[2020-02-20] MEDS: Morphine 4 MG/ML VIAL SLOW IVP PRN (12:31)
--- NOTE | 2020-02-20 12:39 | PDOC.DS.DS ---
Provider - Provider Date of Admission: 02/10/20 12:06 Date of Discharge: 02/20/20 Admitting Provider: Teresa Lazo MD Consultations: Cardiology, Gastroentrology, Oncology Primary Care Physician: Andres Vu Course - Hospital Course Hospital Course: DISCHARGE DIAGNOSES: 1. Monoclonal gammopathy 2. Macrocytic anemia 3. Chest pain 4. Elevated troponin 5. UTI 6. History of neurofibromatosis PERTINENT IMAGING STUDIES: Chest x-ray: No acute process CTA chest: No evidence of pulmonary embolus Bone survey: No evidence of multiple myeloma since on adults. HISTORY OF PRESENT ILLNESS AND BRIEF HOSPITAL COURSE: The patient is unfortunate 84 years old female who has significant past medical histories of neurofibromatosis, hypertension, followed by Dr. Zavaleta, osteoarthritis, pancreatitis, CKD, who presented to the ED with complaint of chest pain. Patient was subsequently admitted to hospitalist service for further cardiac work-up. She was found to have hemoglobins of 6.4. Her troponins was mildly elevated at 0.4. Cardiology was consulted. Given her anemia, cardiology recommended outpatient stress test. GI was consulted. Patient underwent EGD and colonoscopy, showed mild gastritis otherwise unremarkable. She was status post 2 unit of blood transfusion. We also sent additional SPEP, this came back as she had elevated free kappa light chain. There was concern for possible multiple myeloma, for that reason, oncology was consulted. Her bone scan was negative for lytic lesions. She underwent bone marrow biopsy as recommended by oncology, results are pending at discharge. At this time her hemoglobin has been remained stable. We also obtain a follow-up appointment with oncology to follow-up her biopsy results and further treatment if necessary. Additionally, sinew follow-up with cardiology in about 4 weeks to arrange for stress test at outpatient. PROCEDURE PERFORMED: 1. Bone marrow biopsy, pathology is pending at the time of discharge 2. EGD and colonoscopy:Atrophic appearing gastritis, antrum, and body. Biopsies taken. Normal colonoscopy otherwise. Small to moderate internal hemorrhoid DISCHARGE CONDITION: STABLE DISPOSITION: HOME PHYSICAL EXAM: General Appearance: Alert, oriented, resting comfortably, no apparent distress, well developed/nourished. HEENT: Normocephalic/atraumatic, moist mucous membrane, normal ENT inspection, normal tones. PERRLA, no scleral icterus, normal conjunctiva Neck: Supple, normal inspection, no JVD Respiratory: Lungs are clear bilaterally, normal breath sounds, no accessory muscle use Cardiovascular: Regular rate, regular rhythm, no murmur, no rubs Abdomen: Soft, nontender, nondistended, normal bowel sounds, no organomegaly, no guarding no rebound Back: Normal inspection, no CVA tenderness Extremities: No clubbing, no cyanosis, no edema Psych/Mental Status: Normal affect, speech, non-pressured, AAO x 3 Neurologic: CN II-XII are intact. DISCHARGE TIME SPENT: >30 MINUTES Resuscitation Status: 02/10/20 12:26 Resuscitation Status Routine Co-Sign Provider: Resuscitation Status: FULL: Full Resuscitation - Labs Lab Results: 02/19/20 04:02 02/17/20 03:18 Abnormal Lab Results - Last 48 hrs 02/19/20 04:02: RBC 2.68 L, Hgb 8.3 L, Hct 25.7 L, RDW 16.2 H, Band Neuts % (Ma nual) 3 L, Lymphocytes % (Manual) 13 L 02/19/20 04:02: APTT 47.7 H Microbiology - Entire Visit 02/15/20 18:00 Stool Stool Occult Blood (MATTI) - Final 02/10/20 10:02 Urine voided Urine Culture - Final Escherichia coli - Physical Exam Vitals: Vital Signs (12 hours) Temp Pulse Resp BP Pulse Ox 02/20/20 08:00 97.5 F L 77 18 127/60 96 02/20/20 03:37 97.7 F 82 21 H 130/58 L 91 L Weight Admit Weight 92 lb 3.2 oz Weight 91 lb 3.2 oz Physical Exam: The patient was seen and examined on the day of discharge. Plan - Discharge Medications Prescriptions: Pantoprazole [Protonix] 40 mg PO DAILY #30 tab Metoprolol Succinate [Toprol Xl] 50 mg PO DAILY #30 tab.er.24h Home Medications: Medication Instructions Recorded Confirmed Type Acetaminophen [Tylenol Regular 325 mg PO Q4HR PRN 02/02/13 02/10/20 History Strength] Multivit-Min/FA/Lycopene/Lut 1 tablet PO DAILY 02/02/13 02/10/20 History [Centrum Silver] Vit D3/Folic Acid/B2/B6/B12 1 tablet PO DAILY 02/02/13 02/10/20 History [Folgard] Oxybutynin Chloride 20 mg PO HS 02/10/20 02/10/20 History Metoprolol Succinate [Toprol Xl] 50 mg PO DAILY #30 tab.er.24h 02/20/20 Rx Pantoprazole [Protonix] 40 mg PO DAILY #30 tab 02/20/20 Rx Allergies: erythromycin lactobionate [From Erythrocin] Allergy (Intermediate, Verified 06/03/19 12:55) - Discharge Instructions Activity:: Activity as Tolerated Nourishment:: Bariatric Diet Therapies:: Outpatient Cardiac Rehab - Follow up Plan Referrals: Westley Layton MD [Active] - 7 Days (call for appointment) Rolando Peralta MD [Active] - 02/25/20 10:30 am ([address] [facility] [address] [place].) Andres Vu MD [Primary Care Provider] - 7 Days (PLEASE CALL OFFICE FOR FOLLOW UP APPOINTMENT.) Remedios Zavaleta MD [Active] - 3-4 Weeks (PLEASE CALL OFFICE FOR FOLLOW UP APPOINTMENT.) Disposition: HOME Quality - Care Measures CORE MEASURES:: N/A
[2020-02-20 13:28] VITALS: BP 129/68; TEMP 97.2
[2020-02-20 20:32] LABS: Hemoglobin 9.3 g/dL (12.0-16.0); Mean Corpuscular HGB CONC 31.9 g/dL (32.0-36.0); Mean Corpuscular Hemoglobin 31.4 pg (27.0-31.0); Mean Corpuscular Volume 98.7 fL (78.0-98.0); Mean Platelet Volume 8.8 fL (7.4-10.4); Platelet Count 271 thou/uL (130-400); RBC Distribution Width 16.1 % (11.5-14.5); Red Blood Cell (RBC) Count 2.95 mill/uL (4.20-5.40); White Blood Cell (WBC) Count 12.6 thou/uL (4.8-10.8)
[2020-02-20 20:33] LABS: Anisocytosis SLIGHT = 6-15 cells (100X) (0-5/hpf); Band 12 % (5-11); Eosinophils 2 % (0-10); Hypochromia SLIGHT = 6-15 cells (100X) (0-5/hpf); Lymphocytes 1 % (21-51); MDiff Complete? YES; Monocytes 8 % (0-10); Neutrophil 73 % (42-75); Ovalocytes SLIGHT = 2-5 cells (100X) (0-1/hpf); Platelet Morphology Comment Appears Adequate; Polychromasia SLIGHT = 2-3 cells (100X) (0-2/hpf); Reactive Lymphocytes 4 % (0-10)
[2020-02-21 15:14] LABS: Albumin-Ur 57.8 % (.); Alpha 1 - Ur 7.9 % (.); Alpha 2 - Ur 9.5 % (.); Beta-Ur 13.6 % (.); Gamma-Ur 11.1 % (.); M-Spike,% Not Observed % (Not Observed); Protein, Urine 17.3 mg/dL (Not Estab.)
== END 2020-02-20 15:30 | disposition home or self-care (01) | DRG 815 ==
LOC: ERS 08:38 → ERHOLD 12:06 → EEVIPCON 12:06 → 2NO 13:21
PROVIDERS: ADMIT Internal Medicine; ATTEND Family Medicine
PROC: 30233N1 Transfusion of Nonautologous Red Blood Cells into Peripheral Vein, Percutaneous Approach (ICD-10-PCS; principal; 2020-02-12)
PROC: 0DB68ZX Excision of Stomach, Via Natural or Artificial Opening Endoscopic, Diagnostic (ICD-10-PCS; 2020-02-16)
PROC: 0DB78ZX Excision of Stomach, Pylorus, Via Natural or Artificial Opening Endoscopic, Diagnostic (ICD-10-PCS; 2020-02-16)
PROC: 0DJD8ZZ Inspection of Lower Intestinal Tract, Via Natural or Artificial Opening Endoscopic (ICD-10-PCS; 2020-02-16)
PROC: 07DS3ZX Extraction of Vertebral Bone Marrow, Percutaneous Approach, Diagnostic (ICD-10-PCS; 2020-02-19)
DX: D47.2 Monoclonal gammopathy (principal); N39.0 Urinary tract infection, site not specified; D62 Acute posthemorrhagic anemia; K92.1 Melena; I12.9 Hypertensive chronic kidney disease with stage 1 through stage 4 chronic kidney disease, or unspecified chronic kidney disease; Z20.828 Contact with and (suspected) exposure to other viral communicable diseases; M19.90 Unspecified osteoarthritis, unspecified site; K29.70 Gastritis, unspecified, without bleeding; K64.8 Other hemorrhoids; E89.0 Postprocedural hypothyroidism; N18.9 Chronic kidney disease, unspecified; I08.3 Combined rheumatic disorders of mitral, aortic and tricuspid valves; E78.5 Hyperlipidemia, unspecified; R07.9 Chest pain, unspecified; R79.89 Other specified abnormal findings of blood chemistry; Q85.00 Neurofibromatosis, unspecified; Z28.21 Immunization not carried out because of patient refusal; Z90.49 Acquired absence of other specified parts of digestive tract; Z98.49 Cataract extraction status, unspecified eye; Z79.899 Other long term (current) drug therapy; Z88.1 Allergy status to other antibiotic agents
CPT/HCPCS: 20225; 36415; 36430; 71045; 71275; 77012; 77075; 80048; 80053; 81003; 81015; 82274; 82553; 82607; 82728; 82746; 83540; 83550; 83690; 83883; 84165; 84166; 84443; 84484; 85007; 85025; 85027; 85046; 85060; 85097; 85379; 85610; 85730; 86850; 86900; 86901; 87077; 87086; 87186; 87635; 88184; 88185; 88237; 88264; 88280; 88305; 88311; 88312; 88313; 88341; 88342; 88365; 93005; 93010; 93306; 94760; 96365; 96372; J0696; J1650; J2270; J2405; J2704; J2916; J3490; P9016; Q9967; U0003

== ENCOUNTER 2020-02-29 12:50 | Outpatient (CLI) | payer MEDICARE, OTHER ==
--- NOTE | 2020-02-29 14:05 | CT ---
CT OF LUMBAR SPINE PERFORMED WITHOUT CONTRAST ENHANCEMENT: 02/29/20 HISTORY: Back pain radiating down into the legs. The vertebral bodies maintain normal height. Bones appear severely demineralized. Spondylolisthesis o f L3 on L4 is approximately 5 mm. Moderate disc narrowing is seen at L5-S1. No significant periaortic adenopathy. There are small periaortic nodes. Hypodensities involving the k idneys are statistically most likely cysts. There is calcification associated with the right and left adnexal regions. Stomach is partially visualized. This is somewhat distended with fluid. The body re gion of the stomach shows perhaps some slight wall thickening and a lack of the normal gastric fold p attern. Clinical correlation is recommended on this. T12-L1: Unremarkable. L1-2: No significant canal or foraminal stenosis. L2-3: Canal is borderline with degenerative facet and ligamentous hypertrophic change. L3-4: There is spondylolisthesis in conjunction with disc bulge, facet and ligamentous hypertrophic c hange causes a severe degree of canal narrowing. No foraminal stenosis. L4-5: Moderate stenosis at this level caused by disc bulge with facet and ligamentous hypertrophic ch chastity. No foraminal narrowing. L5-S1: Unremarkable. IMPRESSION: Moderate canal stenosis at L4-5 and severe canal stenosis at the L3-4 levels. Other findings as noted above. POS: LARRY
--- NOTE | 2020-02-29 14:14 | CT ---
CT CERVICAL SPINE WITHOUT CONTRAST: 02/29/20 INDICATIONS: Cervical disc disorder. Neck pain. The patient's head is tilted to the right distorting the cervical spine. This results in a severe cur vature to the right with apex at C5-6. In sagittal plane there are degenerative changes throughout the cervical spine. Degenerative disc karmen nges are prominent at C4-5, C6-7 and C6-7. Vacuum phenomenon at these levels with prominent hypertrop hic change. There is an anterolisthesis at C5-6 measured at 7 mm. The cervical vertebrae maintain height without compression deformity. There is osteopenia throughout the cervical vertebrae. C2-3: No disc bulge or significant spondylosis. C3-4: No significant disc bulge or spondylosis. Right foraminal stenosis exacerbated by the curvature . C4-5: Severe degenerative disc change. Posterior spondylosis. Foramina are difficult to assess due to the curvature but there is evidence of severe right foraminal stenosis. Posterior spondylosis efface s the anterior subarachnoid space without evidence of central canal stenosis. C5-6: Very difficult to assess due to the curvature. There is anterolisthesis at C5-6 measured at 7 m m as noted above. This abuts and mildly compresses the anterior cord. There is bilateral foraminal st enosis. C6-7: Degenerative disc changes with posterior spondylosis effaces the anterior subarachnoid space. Bilateral foraminal stenosis secondary to facet and uncinate hypertrophy. C7-T1: Mild spondylosis without central canal stenosis. No evidence of significant foraminal stenosis . IMPRESSION: 1. Severe degenerative changes cervical spine. The head is tilted to the right which results in a severe curvature of the cervical spine with convexity to the left with apex at C5. 2. Severe degenerative disc changes at C4-5, C5-6 and C6-7. Anterolisthesis at C5-6 measured at 7 mm with mild cord compression. Severe right foraminal stenosis at these levels as described above w hich is exacerbated by the curvature. 3. Review of soft tissues reveals enlarged heterogeneous thyroid gland. POS: AGW
== END 2020-02-29 12:51 | disposition home or self-care (01) ==
LOC: CT 12:50
PROVIDERS: ATTEND Family Medicine
DX: R29.898 Other symptoms and signs involving the musculoskeletal system (principal); M50.90 Cervical disc disorder, unspecified, unspecified cervical region; M54.10 Radiculopathy, site unspecified; M47.812 Spondylosis without myelopathy or radiculopathy, cervical region; M43.12 Spondylolisthesis, cervical region; M48.02 Spinal stenosis, cervical region; M48.061 Spinal stenosis, lumbar region without neurogenic claudication
CPT/HCPCS: 72125; 72131

== ENCOUNTER 2020-05-09 13:07 | Outpatient (CLI) | payer MEDICARE, OTHER ==
--- NOTE | 2020-05-09 15:34 | RAD ---
RIGHT FOREFOOT 3 VIEWS: INDICATION: History of post physeal fracture. FINDINGS/IMPRESSION: No acute fracture is evident. There is some mild deformity involving the small digit proximal phalan x likely related to sequelae of a prior trauma. This has healed. There is scattered forefoot osteoa rthrosis. No definite acute osseous abnormality is evident. POS: BH
--- NOTE | 2020-05-09 16:59 | RAD ---
RIGHT FOOT THREE VIEW: 05/09/20 INDICATION: History of closed physeal fracture of the lesser toe. COMPARISON: Additional examination dated 05/09/20. FINDINGS: No acute fracture or subluxation is evident. There is some slight soft tissue nodularity of the surfa ce of the skin of the right foot. This can be seen with neurofibromatosis. Lisfranc alignment is pres erved. No acute osseous abnormality is evident. IMPRESSION: 1. Mild forefoot osteoarthrosis. No acute osseous abnormality. 2. Multiple skin lesions likely related to neurofibromatosis. POS: BH
== END 2020-05-09 13:08 | disposition home or self-care (01) ==
LOC: BICRAD 13:07
PROVIDERS: ATTEND Family Medicine
DX: S99.201A Unspecified physeal fracture of phalanx of right toe, initial encounter for closed fracture (principal); M19.071 Primary osteoarthritis, right ankle and foot

== ENCOUNTER 2020-09-02 10:01 | Outpatient (CLI) | payer MEDICARE, OTHER | END 2020-09-02 10:02 | disposition home or self-care (01) | LOC: CT 10:01 | PROVIDERS: ATTEND Family Medicine | DX: R63.4 Abnormal weight loss (principal); R39.9 Unspecified symptoms and signs involving the genitourinary system; R19.00 Intra-abdominal and pelvic swelling, mass and lump, unspecified site; N28.1 Cyst of kidney, acquired | CPT/HCPCS: 74176; 82565 ==

== ENCOUNTER 2020-09-02 15:10 | Outpatient (CLI) | payer MEDICARE, OTHER | END 2020-09-02 15:11 | disposition home or self-care (01) | LOC: BICRAD 15:10 | PROVIDERS: ATTEND Family Medicine | DX: M79.602 Pain in left arm (principal) ==

== ENCOUNTER 2022-02-07 16:20 | Inpatient (IN) | payer MEDICARE, OTHER ==
[~2022-02-07 16:20] MED LIST: Iopamidol-370 76% 500 ML 1 ML ONE
[2022-02-07 17:57] LABS: Hemoglobin 11.6 g/dL (12.0-16.0); Mean Corpuscular HGB CONC 30.9 g/dL (32.0-36.0); Mean Corpuscular Hemoglobin 31.8 pg (27.0-31.0); Mean Platelet Volume 8.9 fL (7.4-10.4); Platelet Count 316 10x3/uL (130-400); Red Blood Cell (RBC) Count 3.64 mill/uL (4.20-5.40); White Blood Cell (WBC) Count 14.1 10x3/uL (4.8-10.8)
[2022-02-07 18:13] LABS: ALT (SGPT) 18 U/L (8-55); AST (SGOT) 18 U/L (5-34); Albumin 3.5 g/dL (3.4-4.8); Alkaline Phosphatase 145 U/L (40-110); Anion Gap 15 mmol/L (10-20); BUN (Urea Nitrogen) 68 mg/dL (9.8-20.1); Bilirubin, Total 0.7 mg/dL (0.2-1.2); Calc. Creatinine Clearance 0 mL/min (70-130); Calcium 11.3 mg/dL (7.8-10.44); Carbon Dioxide 20 mmol/L (23-31); Chloride 111 mmol/L (98-107); Estimated GFR 38; Globulin 3.4 g/dL (2.4-3.5); Glucose 102 mg/dL (83-110); Potassium 4.3 mmol/L (3.5-5.1); Protein, Total 6.9 g/dL (5.8-8.1); Sodium 142 mmol/L (136-145)
[2022-02-07] MEDS ORDERED: cefTRIAXone\\ROCEPHIN 2 GM VIAL ONE (18:16)
[2022-02-07 18:17] LABS: Band 7 % (5-11); Eosinophils 1 % (0-10); Lymphocytes 10 % (21-51); MDiff Complete? YES; Macrocytosis SLIGHT = 6-15 cells (100X) (0-5/hpf); Monocytes 10 % (0-10); Neutrophil 72 % (42-75); Platelet Morphology Comment Appears Adequate; Polychromasia SLIGHT = 2-3 cells (100X) (0-2/hpf); Vacuoles SLIGHT
[2022-02-07] MEDS ORDERED: Acetaminophen 650 MG Suppository PR PRN (18:55)
[2022-02-07] MEDS ORDERED: Senokot S 8.6-50 MG TAB PO PRN (18:55)
[2022-02-07] MEDS ORDERED: Bisacodyl 5 MG TAB PO PRN (18:55)
[2022-02-07] MEDS ORDERED: Ondansetron PF 4 MG/2 ML Vial IVP PRN (18:55)
[2022-02-07] MEDS ORDERED: Ondansetron ODT 4 MG TAB PO PRN (18:55)
[2022-02-07] MEDS ORDERED: Guaifenesin DM 100-10/5 ML UDCUP PO PRN (18:55)
[2022-02-07] MEDS ORDERED: Acetaminophen 325 MG TAB PO PRN (18:55)
[2022-02-07] MEDS ORDERED: Bisacodyl 10 MG SUPP PR PRN (18:55)
[2022-02-07] MEDS ORDERED: Sodium Chloride 0.9% 1,000 ML IV SCH (19:00)
[2022-02-07 19:24] LABS: CK (CPK) 34 U/L (29-168); Lipase 9 U/L (8-78)
[2022-02-07] MEDS ORDERED: Aspirin Chewable 81 MG TAB ONE (19:46)
[2022-02-07] MEDS ORDERED: Digoxin 0.5 MG/2 ML AMP ONE (19:46)
[2022-02-07] MEDS ORDERED: Enoxaparin Sodium 40 MG/0.4 ML SYRINGE ONE (19:47)
[2022-02-07] MEDS ORDERED: Magnesium 2 GM/50 ML BAG (IN WATER) ONE (19:47)
[2022-02-07 19:53] LABS: CKMB 5.5 ng/mL (0-6.6)
[2022-02-07] MEDS ORDERED: Heparin 5,000 UNITS/ML VIAL SC SCH (21:00)
[2022-02-07 21:15] LABS: SARS-CoV-2 NAA Rapid Test Not Detected (NotDetected)
[2022-02-07 21:37] VITALS: BMI 16.8
[2022-02-07] MEDS ORDERED: Betamethasone 0.1% Cream 15 GM TUBE TOP PRN (23:12)
[2022-02-07] MEDS ORDERED: Midodrine HCl 5 MG TAB PO SCH (23:15)
[2022-02-07] MEDS ORDERED: Loratadine 10 MG TAB PO SCH (23:15)
[2022-02-07] MEDS ORDERED: Acetaminophen 325 MG TAB PO SCH (23:15)
[2022-02-07] MEDS ORDERED: Gabapentin 100 MG CAP PO SCH (23:15)
[2022-02-07] MEDS ORDERED: Oxybutynin 5 MG TAB PO SCH (23:15)
[2022-02-08 02:14] LABS: Bacteria/HPF 2+ HPF (None Seen); Bilirubin Negative (Negative); Blood, Urine Negative (Negative); CAUTI Indications for Culture Alt mental st,lethar; Clarity Clear (Clear); Glucose, Urine (Dipstick) Normal (Negative); Ketone, Urine Negative (Negative); Leukocyte 250 Leu/uL (Negative); Nitrite Negative (Negative); Protein, Urine (Dipstick) 10 mg/dL (Neg-Trace); RBC/HPF 0-3 HPF (0-3); Specific Gravity, Urine 1.039 (1.002-1.036); Squamous Epithelial 0-3 HPF (0-3); Urobilinogen Normal mg/dL (Less than 2); WBC/HPF 21-50 HPF (0-3)
[2022-02-08 02:15] LABS: Urine Culture Reflex Yes Yes
[2022-02-08 03:16] LABS: #Eosinphils 0.1 thou/uL (0.0-0.7); #Lymphocytes 1.3 thou/uL (1.20-3.40); #Monocytes 1.2 thou/uL (0.11-0.59); %Basophils 0.1 % (0.0-1.0); %Eosinophils 1.1 % (0.0-10.0); %Lymphocytes 9.8 % (21.0-51.0); %Monocytes 9.8 % (0.0-10.0); %Neutrophils 79.1 % (42.0-75.0); Hemoglobin 10.6 g/dL (12.0-16.0); Mean Corpuscular HGB CONC 31.1 g/dL (32.0-36.0); Mean Corpuscular Hemoglobin 32.3 pg (27.0-31.0); Mean Platelet Volume 8.9 fL (7.4-10.4); Platelet Count 261 10x3/uL (130-400); RBC Distribution Width 11.9 % (11.5-14.5); Red Blood Cell (RBC) Count 3.28 mill/uL (4.20-5.40); White Blood Cell (WBC) Count 12.7 10x3/uL (4.8-10.8)
[2022-02-08 03:38] LABS: Critical Call Chem Troponin I RESULT DECREASING
[2022-02-08 03:45] LABS: Free T4 (Free Thyroxine) 1.45 ng/dL (0.70-1.48); Thyroid Stimulating Hormone 1.772 uIU/mL (0.35-4.94)
[2022-02-08 03:56] LABS: CKMB 5.1 ng/mL (0-6.6)
[2022-02-08 03:57] LABS: Anion Gap 14 mmol/L (10-20); BUN (Urea Nitrogen) 59 mg/dL (9.8-20.1); Calc. Creatinine Clearance 27 mL/min (70-130); Carbon Dioxide 17 mmol/L (23-31); Chloride 116 mmol/L (98-107); Estimated GFR 50; Glucose 84 mg/dL (83-110); Magnesium 2.7 mg/dL (1.6-2.6); Potassium 4.4 mmol/L (3.5-5.1); Sodium 143 mmol/L (136-145)
[2022-02-08 06:58] LABS: Critical Call Chem Troponin I RESULT DECREASING
[2022-02-08] MEDS: Docusate 100 MG CAP PO SCH (10:17)
[2022-02-08] MEDS: Acetaminophen 325 MG TAB PO SCH ×3 (10:17→20:32)
[2022-02-08] MEDS: Midodrine HCl 5 MG TAB PO SCH ×3 (10:18→20:33)
[2022-02-08] MEDS: Loratadine 10 MG TAB PO SCH (10:18)
[2022-02-08] MEDS: Gabapentin 100 MG CAP PO SCH ×2 (10:19→20:33)
[2022-02-08] MEDS: Enoxaparin Sodium 40 MG/0.4 ML SYRINGE SC SCH (20:33)
[2022-02-08] MEDS: Oxybutynin 5 MG TAB PO SCH (20:33)
[2022-02-09 05:12] LABS: Anion Gap 14 mmol/L (10-20); BUN (Urea Nitrogen) 43 mg/dL (9.8-20.1); Calc. Creatinine Clearance 36 mL/min (70-130); Calcium 10.5 mg/dL (7.8-10.44); Carbon Dioxide 15 mmol/L (23-31); Chloride 116 mmol/L (98-107); Estimated GFR 72; Glucose 65 mg/dL (83-110); Potassium 4.6 mmol/L (3.5-5.1); Sodium 140 mmol/L (136-145)
[2022-02-09 05:20] LABS: Band 3 % (5-11); Burr Cells SLIGHT = 2-5 cells (100X) (0-1/hpf); Elliptocytes SLIGHT = 2-5 cells (100X) (0-1/hpf); Eosinophils 2 % (0-10); Hemoglobin 10.9 g/dL (12.0-16.0); Lymphocytes 4 % (21-51); MDiff Complete? YES; Macrocytosis MODERATE=16-30 cells (100X) (0-5/hpf); Mean Corpuscular HGB CONC 32.2 g/dL (32.0-36.0); Monocytes 7 % (0-10); Neutrophil 84 % (42-75); Ovalocytes SLIGHT = 2-5 cells (100X) (0-1/hpf); Platelet Count 265 10x3/uL (130-400); Platelet Morphology Comment Appears Adequate; RBC Distribution Width 11.8 % (11.5-14.5); Toxic Granulation SLIGHT; White Blood Cell (WBC) Count 12.1 10x3/uL (4.8-10.8)
[2022-02-09] MEDS: Loratadine 10 MG TAB PO SCH (09:13)
[2022-02-09] MEDS: Acetaminophen 325 MG TAB PO SCH ×3 (09:13→22:25)
[2022-02-09] MEDS: Docusate 100 MG CAP PO SCH (09:14)
[2022-02-09] MEDS: Midodrine HCl 5 MG TAB PO SCH ×3 (09:14→22:25)
[2022-02-09] MEDS: Gabapentin 100 MG CAP PO SCH ×2 (09:14→22:26)
[2022-02-09] MEDS: Oxybutynin 5 MG TAB PO SCH (22:24)
[2022-02-09] MEDS: Enoxaparin Sodium 40 MG/0.4 ML SYRINGE SC SCH (22:24)
[2022-02-10 07:56] LABS: Mean Corpuscular HGB CONC 30.9 g/dL (32.0-36.0); Mean Corpuscular Hemoglobin 32.1 pg (27.0-31.0); Mean Platelet Volume 9.1 fL (7.4-10.4); Platelet Count 196 10x3/uL (130-400); Red Blood Cell (RBC) Count 3.41 mill/uL (4.20-5.40); White Blood Cell (WBC) Count 11.7 10x3/uL (4.8-10.8)
[2022-02-10 08:25] LABS: Anion Gap 16 mmol/L (10-20); BUN (Urea Nitrogen) 37 mg/dL (9.8-20.1); Calc. Creatinine Clearance 36 mL/min (70-130); Calcium 10.4 mg/dL (7.8-10.44); Carbon Dioxide 14 mmol/L (23-31); Chloride 119 mmol/L (98-107); Estimated GFR 72; Glucose 87 mg/dL (83-110); Potassium 4.9 mmol/L (3.5-5.1); Sodium 144 mmol/L (136-145)
[2022-02-10 09:40] LABS: Band 3 % (5-11); Eosinophils 1 % (0-10); Lymphocytes 24 % (21-51); MDiff Complete? YES; Monocytes 10 % (0-10); Neutrophil 61 % (42-75); Ovalocytes SLIGHT = 2-5 cells (100X) (0-1/hpf); Platelet Morphology Comment Appears Adequate; Polychromasia SLIGHT = 2-3 cells (100X) (0-2/hpf)
[2022-02-10] MEDS: Docusate 100 MG CAP PO SCH (10:45)
[2022-02-10] MEDS: Loratadine 10 MG TAB PO SCH (10:45)
[2022-02-10] MEDS: Acetaminophen 325 MG TAB PO SCH ×3 (10:45→21:45)
[2022-02-10] MEDS: Midodrine HCl 5 MG TAB PO SCH ×3 (10:46→21:44)
[2022-02-10] MEDS: Gabapentin 100 MG CAP PO SCH ×2 (10:47→21:46)
[2022-02-10] MEDS ORDERED: Lidocaine Viscous Sol 2% 15 ml UD Cup SSP PRN (11:59)
[2022-02-10] MEDS: Enoxaparin Sodium 30 MG/0.3 ML SYRINGE SC SCH (21:44)
[2022-02-10] MEDS: Oxybutynin 5 MG TAB PO SCH (21:45)
[2022-02-11 04:51] LABS: #Eosinphils 0.3 thou/uL (0.0-0.7); #Lymphocytes 1.1 thou/uL (1.20-3.40); #Monocytes 1.1 thou/uL (0.11-0.59); #Neutrophils 8.1 thou/uL (1.40-6.50); %Basophils 0.2 % (0.0-1.0); %Eosinophils 2.4 % (0.0-10.0); %Lymphocytes 10.6 % (21.0-51.0); %Monocytes 10.4 % (0.0-10.0); %Neutrophils 76.5 % (42.0-75.0); Hemoglobin 10.8 g/dL (12.0-16.0); Mean Corpuscular HGB CONC 31.4 g/dL (32.0-36.0); Mean Corpuscular Hemoglobin 31.7 pg (27.0-31.0); Mean Platelet Volume 9.1 fL (7.4-10.4); Platelet Count 261 10x3/uL (130-400); Red Blood Cell (RBC) Count 3.42 mill/uL (4.20-5.40); White Blood Cell (WBC) Count 10.5 10x3/uL (4.8-10.8)
[2022-02-11 05:07] LABS: Anion Gap 11 mmol/L (10-20); BUN (Urea Nitrogen) 35 mg/dL (9.8-20.1); Calc. Creatinine Clearance 38 mL/min (70-130); Calcium 10.4 mg/dL (7.8-10.44); Carbon Dioxide 20 mmol/L (23-31); Chloride 116 mmol/L (98-107); Estimated GFR 75; Glucose 96 mg/dL (83-110); Potassium 4.2 mmol/L (3.5-5.1); Sodium 143 mmol/L (136-145)
[2022-02-11] MEDS: Acetaminophen 325 MG TAB PO SCH ×3 (09:23→21:01)
[2022-02-11] MEDS: Docusate 100 MG CAP PO SCH (09:24)
[2022-02-11] MEDS: Gabapentin 100 MG CAP PO SCH ×2 (09:24→21:02)
[2022-02-11] MEDS: Loratadine 10 MG TAB PO SCH (09:25)
[2022-02-11] MEDS: Midodrine HCl 5 MG TAB PO SCH ×3 (09:25→21:02)
[2022-02-11] MEDS: Oxybutynin 5 MG TAB PO SCH (21:01)
[2022-02-11] MEDS: Enoxaparin Sodium 30 MG/0.3 ML SYRINGE SC SCH (21:02)
[2022-02-12] MEDS: Acetaminophen 325 MG TAB PO SCH ×2 (09:12→16:17)
[2022-02-12] MEDS: Docusate 100 MG CAP PO SCH (09:13)
[2022-02-12] MEDS: Gabapentin 100 MG CAP PO SCH (09:13)
[2022-02-12] MEDS: Midodrine HCl 5 MG TAB PO SCH ×2 (09:13→16:17)
[2022-02-12] MEDS: Loratadine 10 MG TAB PO SCH (09:13)
[2022-02-12 10:31] LABS: #Eosinphils 0.2 thou/uL (0.0-0.7); #Lymphocytes 1.4 thou/uL (1.20-3.40); #Neutrophils 10.4 thou/uL (1.40-6.50); %Basophils 0.3 % (0.0-1.0); %Eosinophils 1.9 % (0.0-10.0); %Lymphocytes 10.4 % (21.0-51.0); %Monocytes 7.5 % (0.0-10.0); %Neutrophils 79.9 % (42.0-75.0); Hemoglobin 11.6 g/dL (12.0-16.0); Mean Corpuscular HGB CONC 31.1 g/dL (32.0-36.0); Mean Corpuscular Hemoglobin 31.7 pg (27.0-31.0); Mean Platelet Volume 8.6 fL (7.4-10.4); Platelet Count 321 10x3/uL (130-400); RBC Distribution Width 12.2 % (11.5-14.5); Red Blood Cell (RBC) Count 3.68 mill/uL (4.20-5.40)
[2022-02-12] MEDS ORDERED: Ziprasidone 20 MG VIAL IM SCH (15:15)
[2022-02-12 16:41] VITALS: BP 214/98; TEMP 97.9
== END 2022-02-12 17:10 | DRG 871 ==
LOC: ERS 16:20 → 2NO 18:55
PROVIDERS: ADMIT Internal Medicine; ATTEND Internal Medicine
DX: A41.9 Sepsis, unspecified organism (principal); I21.A1 Myocardial infarction type 2; J18.9 Pneumonia, unspecified organism; N39.0 Urinary tract infection, site not specified; N17.9 Acute kidney failure, unspecified; E87.20 Acidosis, unspecified; Z20.822 Contact with and (suspected) exposure to COVID-19; E04.9 Nontoxic goiter, unspecified; G89.29 Other chronic pain; M19.90 Unspecified osteoarthritis, unspecified site; K21.9 Gastro-esophageal reflux disease without esophagitis; Z60.2 Problems related to living alone; H91.90 Unspecified hearing loss, unspecified ear; I48.0 Paroxysmal atrial fibrillation; I08.1 Rheumatic disorders of both mitral and tricuspid valves; K12.0 Recurrent oral aphthae; R13.10 Dysphagia, unspecified; Q85.01 Neurofibromatosis, type 1; Z28.21 Immunization not carried out because of patient refusal; Z88.1 Allergy status to other antibiotic agents; Z79.899 Other long term (current) drug therapy; Z90.49 Acquired absence of other specified parts of digestive tract
CPT/HCPCS: 36415; 36416; 71045; 71275; 74230; 80048; 80053; 81001; 82550; 82553; 83605; 83690; 83735; 83880; 84439; 84443; 84484; 85025; 87040; 87086; 93306; 96365; 96372; 96374; 96375; J0696; J1160; J1644; J1650; J1956; J2405; J3475; J7050; Q9967